=== PATIENT | female | born 2005 | race Caucasian/White ===

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

== ENCOUNTER 2024-05-18 15:11 | Outpatient (CLI) | payer BC, SELFPAY ==
[2024-05-18 20:37] LABS: HIV 1/2 Ab P24 Ag Result Negative (Negative)
[2024-05-18 20:41] LABS: Hepatitis B Surface Antigen Negative (Negative)
[2024-05-18 20:47] LABS: HAV RESULT Negative (Negative); Hepatitis B Core IgM Result Negative (Negative)
[2024-05-18 20:58] LABS: Hepatitis C Virus Antibody Negative (Negative)
[2024-05-19 10:51] LABS: Rapid Plasma Reagin Non-Reactive (NonReactive)
== END 2024-05-18 15:12 | disposition home or self-care (01) ==
PROVIDERS: PCP Nurse Practitioner Family; Visit Provider Obstetrics & Gynecology
DX: Z11.3 Encounter for screening for infections with a predominantly sexual mode of transmission (principal)
CPT/HCPCS: 36415; 80074; 86592; 86695; 86696; 86703; G0432

== ENCOUNTER 2024-07-07 12:51 | Emergency (ER) | payer BC, SELFPAY ==
--- NOTE | ~2024-07-07 | US_ITS ---
EXAMINATION: US pelvic complete w TV DATE: 07/07/2024 14:53 INDICATION: Pelvic pain. TECHNIQUE: Multiple transabdominal and transvaginal sonographic images of the pelvis were obtained. COMPARISON: None. FINDINGS: TRANSABDOMINAL ULTRASOUND: The uterus measures 5.3 x 2.7 x 5.6 cm. There is no free fluid in the pelvis. TRANSVAGINAL ULTRASOUND: The endometrial complex measures 7 mm in thickness. The right ovary measures 1.6 x 2.1 x 1.6 cm. The left ovary measures 1.6 x 1.9 x 1.5 cm. There is normal vascular flow in the ovaries. IMPRESSION: 1. Normal pelvis. Reviewed, dictated and finalized at location A. TER APPRENTICE IMPRESSION: 1. Normal pelvis.
--- NOTE | ~2024-07-07 | CT_ITS ---
EXAMINATION: CT abdomen pelvis w con DATE: 07/07/2024 15:50 INDICATION: Right lower quadrant abdominal pain. TECHNIQUE: Computed tomography (CT) of the abdomen and pelvis was performed with 100 mL Omnipaque 350 intravenous contrast. Automated exposure control and iterative reconstruction technique were employe d. The dose-length product was 326.96 mGy-cm. COMPARISON: Ultrasound pelvis 07/07/2024 FINDINGS: The visualized portions of the lung bases demonstrate mild atelectasis. No pleural effusion . The heart size is normal. No pericardial effusion. The liver is normal. The gallbladder is distende d, likely secondary to fasting. The spleen, pancreas, and adrenal glands are normal. There is moderat e atrophy of right kidney. There is hypoenhancement of right kidney inferior pole, consistent with py elonephritis. There is urothelial thickening and enhancement in the right ureter. There are no dilate d loops of bowel. The appendix is normal. There are no pathologically enlarged lymph nodes. There is no free intraperitoneal fluid. 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 There is 3 mm ante rolisthesis of L5 on S1. IMPRESSION: 1. Right-sided pyelonephritis. Reviewed, dictated and finalized at location A. MINER
[2024-07-07 12:55] VITALS: BP 127/87; PULSE 97; RESP 20; TEMP 36.4; O2SAT 100
[2024-07-07 13:04] VITALS: BP 127/87; PULSE 97; RESP 20; TEMP 36.4; O2SAT 100
--- NOTE | 2024-07-07 13:25 | ED.ABDPAIN ---
HPI - Abdominal Pain General Chief Complaint: Abdominal Pain Stated Complaint: abd pain Time Seen by Provider: 07/07/24 12:53 Source: patient Mode of arrival: EMS Limitations: no limitations History of Present Illness HPI narrative: This is a 19 year old female that presents to the ER for right lower quadrant pain. Ongoing since waking up this morning. The pain is constant. She has not taken anything for pain. Reports associated dysuria. Denies fever, vomiting, diarrhea, hematuria. Related Data Home Medications Medication Instructions Recorded Confirmed levalbuterol tartrate 45 inhalation 05/18/24 05/18/24 mcg/actuation aerosol inhaler Allergies Allergy/AdvReac Type Severity Reaction Status Date / Time No Known Allergies Allergy Verified 05/18/24 13:50 Review of Systems Review of Systems: CONSTITUTIONAL: Denies fever GASTROINTESTINAL: Reports abdominal pain, nausea. Denies vomiting, or diarrhea. GENITOURINARY: Reports dysuria. Denies hematuria. All systems reviewed & are unremarkable except as noted in HPI and below PMFSH Past Medical History Medical History (Updated 07/07/24 @ 16:10 by Radha Thibodeaux PA-C) Allergies Asthma HSV-1 (herpes simplex virus 1) infection Family History Family History Mother Depression Father Depression Hypertension Sibling Depression Asthma Grandparent Hypertension Social History Social History (Updated 05/18/24 @ 13:54 by Jamie Jesus MA) Smoking status: Never smoker Tobacco type: e-cigarettes/vaping Alcohol intake: current Substance use: current Substance use type: marijuana Do You Feel Safe in your Home?: Yes Lack of Transportation: No Lack of Food: Never True Current Housing: I Have Housing Concerned About Future Housing: No Difficulty Paying Gas/Electric Bills: No Difficulty Paying for Meds: No Currently Unemployed: No Education: High School Diploma/GED Difficulty w/ Childcare or Family Care: No Living arrangements: with family Occupation/Education: unemployed Gender identity (if verbalized by the patient): Female Sexual Orientation (if Verbalized by the Patient): Bisexual Exam Narrative: GENERAL: Well-appearing, well-nourished, and in no acute distress. HEAD: Normocephalic, atraumatic. EYES: EOMI. CHEST: Clear to auscultation. No respiratory distress. No wheezes rales or rhonchi HEART: Regular rate and rhythm. No murmur heard. Normal peripheral pulses. ABDOMEN: Soft, nondistended, normal active bowel sounds. Mild tenderness to palpation in the right lower quadrant, without guarding EXTREMITIES: Normal range of motion. No edema. SKIN: Warm, dry, no rash. NEURO: No focal deficits. Alert and oriented x3. PSYCH: Normal mood and affect Course Course Emergency Course: patient updated on her workup. Offered further inpatient management versus outpatient management with close follow-up. Patient wishes to be discharged have close follow-up with her primary provider Vital Signs Vital signs: Vital Signs Temperature 97.5 F L 07/07/24 12:55 Pulse Rate 97 07/07/24 12:55 Respiratory Rate 20 07/07/24 12:55 Blood Pressure 127/87 07/07/24 12:55 Pulse Oximetry 100 07/07/24 12:55 Oxygen Delivery Room Air 07/07/24 12:55 Temperature 97.8 F 07/07/24 15:17 Pulse Rate 88 07/07/24 15:17 Respiratory Rate 16 07/07/24 15:17 Blood Pressure 124/83 07/07/24 15:17 Pulse Oximetry 100 07/07/24 15:17 Oxygen Delivery Room Air 07/07/24 12:55 MDM - Abdominal Pain MDM Narrative Medical decision making narrative: patient presents to the emergency department for right-sided abdominal /pelvic pain. She is afebrile and nontoxic appearing. Her vitals are stable. CBC with leukocytosis to 13.9. Metabolic panel without concerning findings. Urine without evidence of infection. This was sent for culture. Pelvic ultrasound is normal. CT abdomen pelvis shows findings of pyelonephritis. Patient updated on her workup. Offered further inpatient management versus outpatient management with close follow-up. Patient wishes to be discharged have close follow-up with her primary provider. She was given warnings to return to the ER Differential Diagnosis Differential diagnosis: Likely acute appendicitis, calculus of kidney, diverticulitis and other ( ovarian cyst rupture, ovarian torsion) Lab Data Attestation: I reviewed the patient's lab results. 07/07/24 13:22 07/07/24 13:22 Labs: Lab Results 07/07/24 07/07/24 Range/Units 13:22 13:37 WBC 13.9 H (4.5-10.0) K/mm3 RBC 4.88 (4.2-5.4) M/mm3 Hgb 15.2 H (12.0-15.0) g/dL Hct 44.0 (37.0-47.0) % MCV 90.2 (80-100) fl MCH 31.1 (26-34) pg MCHC 34.5 (32-36) g/dl RDW 13.0 (11.5-14.5) % Plt Count 296 (150-375) k/mm3 MPV 10.7 H (7.4-10.4) fl Immature Gran % (Auto) 0.3 (0-0.5) % Neut % (Auto) 84.3 H (45.5-73.1) % Lymph % (Auto) 9.1 L (18.3-44.2) % [place] % (Auto) 5.6 (2.6-8.5) % Eos % (Auto) 0.3 (0-4.4) % Baso % (Auto) 0.4 (0.2-1.2) % Lymph # (Auto) 1.26 (0.9-3.2) K/mm3 Alcorn # (Auto) 0.8 H (0.1-0.6) K/mm3 Eos # (Auto) 0.0 (0-0.3) K/mm3 Baso # (Auto) 0.1 (0.0-0.1) K/mm3 Abs Immat Gran (auto) 0.04 H (0.00-0.031) K/mm3 Absolute Neuts (auto) 11.7 H (1.3-6.7) K/mm3 Absolute Nucleated RBC 0.000 (0.0-0.012) K/mm3 Nucleated RBC % 0.0 (0.0-0.2) % Sodium 137 (137-145) mmol/L Potassium 4.3 (3.4-5.0) mmol/L Chloride 107 (98-107) mmol/L Carbon Dioxide 18 L (22-30) mmol/L Anion Gap 12 (4-12) mmol/L BUN 13 (7-17) mg/dL Creatinine 0.50 L (0.7-1.0) mg/dL Estim Creat Clear Calc 135 ml/min Estimated GFR > 60 (59 - ) Glucose 90 (65-110) mg/dL Calcium 9.3 (8.4-10.2) mg/dL Total Bilirubin 0.6 (0.2-1.3) mg/dL AST 24 (14-36) U/L ALT 18 (6-35) U/L Alkaline Phosphatase 97 (38-126) U/L Total Protein 8.0 (6.3-8.2) g/dL Albumin 4.7 (3.5-5.1) g/dL Lipase 42 (23-300) U/L Urine Color Yellow (Yellow) Urine Appearance Cloudy H (Clear) Urine pH 7.0 (5.0-9.0) Ur Specific [place] 1.016 (1.001-1.035) Urine Protein Trace (Negative) mg/dL Urine Glucose (UA) Negative (Negative) mg/dL Urine Ketones Negative (Negative) mg/dL Ur Blood (Man) Trace (Negative) Urine Nitrate Positive H (Negative) Urine Bilirubin Negative (Negative) Urine Urobilinogen 0.2 (<2.0) mg/dL Leukocyte Esterase Rfl 3+ H (Negative) BAHMAN/UL Urine RBC 3-5 H (0-2) /hpf Urine WBC >100 H (0-3) /hpf Ur Squamous Epith Cells Occasional (Few) /hpf Urine Bacteria 4+ H /hpf Urine Casts 0-2 Imaging Data Radiologist's impression: ITS Impressions Pelvic/Transvag US 07/07/24 14:56 IMPRESSION: 1. Normal pelvis. Abdomen/Pelvis CT 07/07/24 15:54 IMPRESSION: 1. Right-sided pyelonephritis. Critical Care Time Critical Care Time Critical Care Time: No Discharge Plan Discharge Clinical Impression: Pyelonephritis Patient Disposition: Home, Self-Care Condition: Stable Instructions: Antibiotic Form, Kidney Infection (ED) Additional Instructions: Return to the ER if you experience fever, abdominal pain with nausea and vomiting, you are unable to keep down liquids or solids, or any other symptoms that are concerning to you Remain well hydrated. Take oral antibiotics as prescribed Follow up with primary care doctor Prescriptions: New cefdinir 300 mg capsule 300 mg PO Q12H 10 Days Qty: 20 0RF No Action levalbuterol tartrate 45 mcg/actuation HFA aerosol inhaler inhalation norethindrone-e.estradiol-iron [June FE (28)] 1.5 mg-30 mcg (21)/75 mg (7) tablet 1 tablet PO DAILY Qty: 84 1RF Follow-up/Referrals: Wolfgang,KAUSHIK Turner [Primary Care Provider] -
[2024-07-07 13:27] LABS: Basophils Absolute Auto 0.1 K/mm3 (0.0-0.1); Basophils Percent Auto 0.4 % (0.2-1.2); Eosinophils Percent Auto 0.3 % (0-4.4); Hemoglobin 15.2 g/dL (12.0-15.0); Immature Granulocyte Absolute 0.04 K/mm3 (0.00-0.031); Immature Granulocyte Percent A 0.3 % (0-0.5); Lymphocytes Absolute Auto 1.26 K/mm3 (0.9-3.2); Lymphocytes Percent Auto 9.1 % (18.3-44.2); Mean Corpuscular HGB Conc 34.5 g/dl (32-36); Mean Corpuscular Hemoglobin 31.1 pg (26-34); Mean Corpuscular Volume 90.2 fl (80-100); Mean Platelet Volume 10.7 fl (7.4-10.4); Monocytes Absolute Auto 0.8 K/mm3 (0.1-0.6); Monocytes Percent Auto 5.6 % (2.6-8.5); Neutrophils Absolute Auto 11.7 K/mm3 (1.3-6.7); Neutrophils Percent Auto 84.3 % (45.5-73.1); Platelet Count Result 296 k/mm3 (150-375); Red Blood Count 4.88 M/mm3 (4.2-5.4); White Blood Count 13.9 K/mm3 (4.5-10.0)
[2024-07-07 13:41] LABS: Alanine Aminotransferase 18 U/L (6-35); Albumin Level 4.7 g/dL (3.5-5.1); Alkaline Phosphatase 97 U/L (38-126); Anion Gap 12 mmol/L (4-12); Aspartate Amino Transferase 24 U/L (14-36); Bilirubin,Total 0.6 mg/dL (0.2-1.3); Blood Urea Nitrogen 13 mg/dL (7-17); Calcium 9.3 mg/dL (8.4-10.2); Carbon Dioxide 18 mmol/L (22-30); Chloride 107 mmol/L (98-107); Estimated CRCL calculation 135 ml/min; Estimated Glomerular Filt Rate > 60; Glucose 90 mg/dL (65-110); Lipase 42 U/L (23-300); Potassium 4.3 mmol/L (3.4-5.0); Sodium 137 mmol/L (137-145)
[2024-07-07 13:51] LABS: Add Urine Microscopic? YES; Appearance Urine Cloudy (Clear); Bacteria Urine 4+ /hpf; Bilirubin Urine Negative (Negative); Blood Urine Trace (Negative); Color Urine Yellow (Yellow); Glucose Urine UA Negative (Negative); Ketones Urine Negative (Negative); Leukocyte Esterase Ur 3+ LEU/UL (Negative); Nitrate Urine Positive (Negative); Non Pathogenic Casts 0-2; Protein Urine Trace mg/dL (Negative); Specific Grav Ur 1.016 (1.001-1.035); Squamous Epithelial Cell Urine Occasional /hpf (Few); Urobilinogen Urine 0.2 mg/dL (<2.0); WBC Urine >100 /hpf (0-3)
[2024-07-07] MEDS: MORPHINE SULFATE (*CRX) 4 MG/ML INJ IV PUSH (13:52)
[2024-07-07] MEDS: ONDANSETRON INJ 4 MG/2 ML VIAL IV PUSH (13:55)
[2024-07-07] MEDS: SODIUM CHLORIDE 0.9% IV 1,000 ML 999 ML IV CONT (13:59)
[2024-07-07 15:17] VITALS: BP 124/83; PULSE 88; RESP 16; TEMP 36.6; O2SAT 100
[2024-07-07 16:21] VITALS: BP 112/72; PULSE 86; RESP 14; TEMP 36.5; O2SAT 100
[2024-07-10 10:02] LABS: BEDSIDEPREGUCG Negative (Negative)
== END 2024-07-07 17:02 | disposition home or self-care (01) ==
PROVIDERS: Emergency Provider Physician Assistant; PCP Nurse Practitioner Family
DX: N12 Tubulo-interstitial nephritis, not specified as acute or chronic (principal); J45.909 Unspecified asthma, uncomplicated
CPT/HCPCS: 36415; 74177; 76830; 76856; 80053; 81001; 81025; 83690; 85025; 87077; 87086; 87186; 96361; 96365; 96375; 99284; J0696; J2270; J2405; J7030; Q9967

== ENCOUNTER 2024-07-31 03:29 | Emergency (ER) | payer BC, SELFPAY ==
--- NOTE | ~2024-07-31 | CT_ITS ---
CT of the Abdomen and Pelvis: Indication: Abdominal pain Technique: 2.5 mm axial scans were obtained through the abdomen and pelvis following intravenous adm inistration of 100 cc of Omnipaque 350. Dose reduction technique was used on this scan by utilizing a utomated exposure control and iterative reconstruction technique. The dose-length product (DLP) was 4 03.43 mGy-cm. COMPARISON: 07/07/2024 Findings: Scans through the lung bases are unremarkable. The liver, spleen, pancreas, gallbladder, adrenals and left kidney are within normal limits. Relative atrophy of the right kidney with areas of cortical scarring are present, as seen on prior exam. Prev iously identified right pyelonephritis is nearly completely resolved. No evidence of aortic aneurysm. No lymphadenopathy. No bowel obstruction or bowel wall thickening. There is no evidence to suggest acute appendicitis. Images through the pelvis were performed. Urinary bladder unremarkable. No adnexal mass evident. No a scites. Bilateral L5 pars interarticularis defects are present, without subluxation. Impression: Near complete interval resolution of right pyelonephritis since prior exam. Stable relative atrophy o f the right kidney with areas of cortical scarring. Reviewed, dictated and finalized at location M. LOADER OPERATOR Impression: Near complete interval resolution of right pyelonephritis since prior exam. Sta ble relative atrophy of the right kidney with areas of cortical scarring.
[2024-07-31 03:31] VITALS: BP 129/97; PULSE 99; RESP 14; TEMP 36.4; O2SAT 100
[2024-07-31 03:51] LABS: BEDSIDEPREGUCG Negative (Negative)
[2024-07-31 03:54] LABS: Add Urine Microscopic? YES; Appearance Urine Cloudy (Clear); Bacteria Urine Rare /hpf; Bilirubin Urine Negative (Negative); Blood Urine Negative (Negative); Color Urine Yellow (Yellow); Glucose Urine UA Negative (Negative); Ketones Urine Trace mg/dL (Negative); Leukocyte Esterase Ur 1+ LEU/UL (Negative); Nitrate Urine Negative (Negative); Non Pathogenic Casts 0-2; Protein Urine Trace mg/dL (Negative); RBC Urine 0-2 /hpf (0-2); Specific Grav Ur 1.031 (1.001-1.035); Squamous Epithelial Cell Urine Moderate /hpf (Few); WBC Urine 21-50 /hpf (0-3)
[2024-07-31 05:34] LABS: Basophils Percent Auto 0.2 % (0.2-1.2); Eosinophils Absolute Auto 0.4 K/mm3 (0-0.3); Eosinophils Percent Auto 4.3 % (0-4.4); Hematocrit 42.3 % (37.0-47.0); Hemoglobin 14.3 g/dL (12.0-15.0); Immature Granulocyte Absolute 0.04 K/mm3 (0.00-0.031); Immature Granulocyte Percent A 0.4 % (0-0.5); Lymphocytes Absolute Auto 1.91 K/mm3 (0.9-3.2); Lymphocytes Percent Auto 20.2 % (18.3-44.2); Mean Corpuscular HGB Conc 33.8 g/dl (32-36); Mean Corpuscular Hemoglobin 30.4 pg (26-34); Mean Platelet Volume 10.6 fl (7.4-10.4); Monocytes Absolute Auto 0.6 K/mm3 (0.1-0.6); Monocytes Percent Auto 6.3 % (2.6-8.5); Neutrophils Absolute Auto 6.5 K/mm3 (1.3-6.7); Neutrophils Percent Auto 68.6 % (45.5-73.1); Platelet Count Result 341 k/mm3 (150-375); Red Cell Distribution Width 12.3 % (11.5-14.5); White Blood Count 9.4 K/mm3 (4.5-10.0)
[2024-07-31] MEDS: KETOROLAC 15 MG/ML VIAL (*BKC) IV PUSH (05:40)
[2024-07-31 05:47] LABS: Alanine Aminotransferase 14 U/L (6-35); Albumin Level 4.5 g/dL (3.5-5.1); Alkaline Phosphatase 90 U/L (38-126); Anion Gap 6 mmol/L (4-12); Aspartate Amino Transferase 21 U/L (14-36); Bilirubin,Total 0.3 mg/dL (0.2-1.3); Blood Urea Nitrogen 18 mg/dL (7-17); Calcium 9.2 mg/dL (8.4-10.2); Carbon Dioxide 26 mmol/L (22-30); Chloride 106 mmol/L (98-107); Estimated CRCL calculation 110 ml/min; Estimated Glomerular Filt Rate > 60; Glucose 95 mg/dL (65-110); Lipase 84 U/L (23-300); Potassium 4.2 mmol/L (3.4-5.0); Sodium 138 mmol/L (137-145)
--- NOTE | 2024-07-31 05:52 | PC.NURSE ---
Patient taken to CT at this time.
--- NOTE | 2024-07-31 06:20 | ED_ITS ---
HPI - General Adult General Chief complaint: Urogenital-Female Stated complaint: R sided flank pain Time Seen by Provider: 07/31/24 03:56 History of Present Illness HPI narrative: This is a 19-year-old female history of UTI pyelonephritis presenting with right lower quadrant pain. Patient says she has a burning pain in the right lower quadrant that extends the suprapubic area around her right flank. She says this is similar to when she has had pyelonephritis in the past. She does notice pain on urination and increased urinary urgency. No fevers chills nausea vomiting or diarrhea. Patient still has appendix. Related Data Home Medications Medication Instructions Recorded Confirmed levalbuterol tartrate 45 inhalation 05/18/24 05/18/24 mcg/actuation aerosol inhaler Allergies Allergy/AdvReac Type Severity Reaction Status Date / Time No Known Allergies Allergy Verified 07/31/24 03:29 [facility] Past Medical History Medical History Allergies Asthma HSV-1 (herpes simplex virus 1) infection Family History Family History Mother Depression Father Depression Hypertension Sibling Depression Asthma Grandparent Hypertension Social History Social History (Updated 05/18/24 @ 13:54 by Jamie Jesus MA) Smoking status: Never smoker Tobacco type: e-cigarettes/vaping Alcohol intake: current Substance use: current Substance use type: marijuana Do You Feel Safe in your Home?: Yes Lack of Transportation: No Lack of Food: Never True Current Housing: I Have Housing Concerned About Future Housing: No Difficulty Paying Gas/Electric Bills: No Difficulty Paying for Meds: No Currently Unemployed: No Education: High School Diploma/GED Difficulty w/ Childcare or Family Care: No Living arrangements: with family Occupation/Education: unemployed Gender identity (if verbalized by the patient): Female Sexual Orientation (if Verbalized by the Patient): Bisexual Exam Narrative: APPEARANCE: No apparent distress. Head: atraumatic. EYES: EOMI, NOSE: Atraumatic NECK: Trachea midline RESPIRATORY: No increased rate of breathing clear to auscultation CARDIOVASCULAR: RRR, ABDOMINAL: Tenderness to the palpation in the right lower abdomen without rebound or guarding. No CVA tenderness MUSCULOSKELETAl: No obvious deformities NEURO: Alert. Moving 4/4 extremities SKIN:: Warm, dry. Normal color PSYCHIATRIC: Normal affect Course Vital Signs Vital signs: Vital Signs Temperature 97.6 F 07/31/24 03:31 Pulse Rate 99 07/31/24 03:31 Respiratory Rate 14 07/31/24 03:31 Blood Pressure 129/97 H 07/31/24 03:31 Pulse Oximetry 100 07/31/24 03:31 Oxygen Delivery Room Air 07/31/24 03:31 Temperature 97.9 F 07/31/24 06:22 Pulse Rate 78 07/31/24 06:22 Respiratory Rate 17 07/31/24 06:22 Blood Pressure 130/92 H 07/31/24 06:22 Pulse Oximetry 100 07/31/24 06:22 Oxygen Delivery Room Air 07/31/24 03:31 Medical Decision Making MDM Narrative Medical decision making narrative: -Course: 19-year-old female presenting with right lower quadrant abdominal pain urinary symptoms. urine indicative of infection. CT showed no evidence of appendicitis and some scarring of the right kidney. Patient given a dose of ceftriaxone in the ED will be discharged on cefdinir. Given return precautions. -DDX includes but is not limited to: Appendicitis, urinary tract infection, , colitis, pyelonephritis, kidney stone -Independent interpretation of studies: labs and imaging reviewed urinalysis indicative of infection -Interventions: Toradol, ceftriaxone -Shared decision making / Disposition: Discharged -RX cefdinir, Motrin, Tylenol Vital Signs Vital Signs: Vital Signs Temperature 97.6 F 07/31/24 03:31 Pulse Rate 99 07/31/24 03:31 Respiratory Rate 14 07/31/24 03:31 Blood Pressure 129/97 H 07/31/24 03:31 Pulse Oximetry 100 07/31/24 03:31 Oxygen Delivery Room Air 07/31/24 03:31 Temperature 97.9 F 07/31/24 06:22 Pulse Rate 78 07/31/24 06:22 Respiratory Rate 17 07/31/24 06:22 Blood Pressure 130/92 H 07/31/24 06:22 Pulse Oximetry 100 07/31/24 06:22 Oxygen Delivery Room Air 07/31/24 03:31 Lab Data 07/31/24 05:24 07/31/24 05:24 Labs: Lab Results 07/31/24 07/31/24 07/31/24 Range/Units 03:43 03:48 05:24 WBC 9.4 (4.5-10.0) K/mm3 RBC 4.70 (4.2-5.4) M/mm3 Hgb 14.3 (12.0-15.0) g/dL Hct 42.3 (37.0-47.0) % MCV 90.0 (80-100) fl MCH 30.4 (26-34) pg MCHC 33.8 (32-36) g/dl RDW 12.3 (11.5-14.5) % Plt Count 341 (150-375) k/mm3 MPV 10.6 H (7.4-10.4) fl Immature Gran % (Auto) 0.4 (0-0.5) % Neut % (Auto) 68.6 (45.5-73.1) % Lymph % (Auto) 20.2 (18.3-44.2) % [place] % (Auto) 6.3 (2.6-8.5) % Eos % (Auto) 4.3 (0-4.4) % Baso % (Auto) 0.2 (0.2-1.2) % Lymph # (Auto) 1.91 (0.9-3.2) K/mm3 [place] # (Auto) 0.6 (0.1-0.6) K/mm3 Eos # (Auto) 0.4 H (0-0.3) K/mm3 Baso # (Auto) 0.0 (0.0-0.1) K/mm3 Abs Immat Gran (auto) 0.04 H (0.00-0.031) K/mm3 Absolute Neuts (auto) 6.5 (1.3-6.7) K/mm3 Absolute Nucleated RBC 0.000 (0.0-0.012) K/mm3 Nucleated RBC % 0.0 (0.0-0.2) % Sodium 138 (137-145) mmol/L Potassium 4.2 (3.4-5.0) mmol/L Chloride 106 (98-107) mmol/L Carbon Dioxide 26 (22-30) mmol/L Anion Gap 6 (4-12) mmol/L BUN 18 H (7-17) mg/dL Creatinine 0.70 (0.7-1.0) mg/dL Estim Creat Clear Calc 110 ml/min Estimated GFR > 60 (59 - ) Glucose 95 (65-110) mg/dL Calcium 9.2 (8.4-10.2) mg/dL Total Bilirubin 0.3 (0.2-1.3) mg/dL AST 21 (14-36) U/L ALT 14 (6-35) U/L Alkaline Phosphatase 90 (38-126) U/L Total Protein 8.0 (6.3-8.2) g/dL Albumin 4.5 (3.5-5.1) g/dL Lipase 84 (23-300) U/L Urine Color Yellow (Yellow) Urine Appearance Cloudy H (Clear) Urine pH 6.0 (5.0-9.0) Ur Specific [place] 1.031 (1.001-1.035) Urine Protein Trace (Negative) mg/dL Urine Glucose (UA) Negative (Negative) mg/dL Urine Ketones Trace H (Negative) mg/dL Ur Blood (Man) Negative (Negative) Urine Nitrate Negative (Negative) Urine Bilirubin Negative (Negative) Urine Urobilinogen 1.0 (<2.0) mg/dL Leukocyte Esterase Rfl 1+ H (Negative) BAHMAN/UL Urine RBC 0-2 (0-2) /hpf Urine WBC 21-50 H (0-3) /hpf Ur Squamous Epith Cells Moderate (Few) /hpf Urine Bacteria Rare /hpf Urine Casts 0-2 POC Urine HCG, Qual Negative (Negative) Discharge Plan Discharge Clinical Impression: Pyelonephritis Patient Disposition: Home, Self-Care Condition: Stable Instructions: Antibiotic Form, Kidney Infection (ED) Additional Instructions: please complete the antibiotics as instructed. Please use Motrin and Tylenol for pain control. Return to ED if you develop fevers severe pain or if your condition is getting worse. Prescriptions: New ibuprofen 800 mg tablet 800 mg PO TID PRN (Reason: pain) 7 Days Qty: 21 0RF acetaminophen 500 mg tablet 1,000 mg PO TID PRN (Reason: sunny) 7 Days Qty: 42 0RF cefdinir 300 mg capsule 300 mg PO Q12H Qty: 20 0RF No Action levalbuterol tartrate 45 mcg/actuation HFA aerosol inhaler inhalation norethindrone-e.estradiol-iron [Junel FE .530 (28)] 1.5 mg-30 mcg (21)/75 mg (7) tablet 1 tablet PO DAILY Qty: 84 1RF cefdinir 300 mg capsule 300 mg PO Q12H 10 Days Qty: 20 0RF Follow-up/Referrals: Wolfgang,KAUSHIK Turner [Primary Care Provider] -
[2024-07-31 06:22] VITALS: BP 130/92; PULSE 78; RESP 17; TEMP 36.6; O2SAT 100
[2024-07-31 06:56] VITALS: BP 126/100; PULSE 78; RESP 16; TEMP 36.4; O2SAT 97
== END 2024-07-31 06:58 | disposition home or self-care (01) ==
PROVIDERS: Emergency Provider Emergency Medicine; PCP Nurse Practitioner Family
DX: N12 Tubulo-interstitial nephritis, not specified as acute or chronic (principal); J45.909 Unspecified asthma, uncomplicated; Z79.3 Long term (current) use of hormonal contraceptives
CPT/HCPCS: 36415; 74177; 80053; 81001; 81025; 83690; 85025; 87086; 96365; 96375; 99284; J0696; J1885; Q9967

== ENCOUNTER 2024-08-01 14:51 | Emergency (ER) | payer BC, SELFPAY ==
--- NOTE | ~2024-08-01 | US_ITS ---
EXAMINATION: US pelvic complete w TV DATE: 08/01/2024 16:09 INDICATION: lower abd pain, right side, r/o torsion TECHNIQUE: Multiple transabdominal and endovaginal sonographic images of the pelvis were obtained. COMPARISON: 07/07/2024; CT abdomen pelvis 07/31/2024. FINDINGS: Uterus: 5.3 x 2.9 x 3.4 cm. Anteverted and anteflexed. Endometrial complex measures 2 mm. Right Ovary: 2.9 x 1.7 x 3.3 cm. Vascular flow is present. No adnexal mass Left Ovary: 2.8 x 1.4 x 1.9 cm. Vascular flow is present. 1.8 cm simple cyst or dominant follicle. There is no free fluid in the pelvis. IMPRESSION: Normal pelvic sonogram findings. Reviewed, dictated and finalized at location K. LATORY COMPLIANCE DIRECTOR
[2024-08-01 14:53] VITALS: BP 123/87; PULSE 88; RESP 20; TEMP 36.4; O2SAT 100
--- NOTE | 2024-08-01 15:15 | ED_ITS ---
HPI - Abdominal Pain General Chief Complaint: Abdominal Pain Stated Complaint: RLQ pain Time Seen by Provider: 08/01/24 15:04 History of Present Illness HPI narrative: 19-year-old female with a past medical history significant for recently diagnosed UTI of pyelonephritis on the right side. She was seen and evaluated less than 48 hours ago at the same facility. Patient states that she has been taking her antibiotics as prescribed with still having intermittent pain that is worsening her right lower quadrant. She denies any fever, chills but does note some pain with urination and increased urinary frequency. Endorses some nausea started developing today without vomiting. Patient still has her appendix and denies any abdominal surgeries. She denies being on her. But states she is getting. Leg cramps especially in the right lower quadrant. Denies any history of cysts or chance of . Had negative test yesterday. Related Data Home Medications ?Medication ?Instructions ?Recorded ?Confirmed ?Last Taken ?Type levalbuterol tartrate 45 inhalation 05/18/24 05/18/24 Unknown History mcg/actuation aerosol inhaler Allergies Allergy/AdvReac Type Severity Reaction Status Date / Time No Known Allergies Allergy Verified 08/01/24 14:56 Review of Systems 2 Review of Systems: As [facility] Past Medical History Medical History HSV-1 (herpes simplex virus 1) infection Asthma Allergies Family History Family History Mother Depression Father Depression Hypertension Sibling Depression Asthma Grandparent Hypertension Social History Social History Smoking status: Never smoker Tobacco type: e-cigarettes/vaping Alcohol intake: current Substance use: current Substance use type: marijuana Do You Feel Safe in your Home?: Yes Lack of Transportation: No Lack of Food: Never True Current Housing: I Have Housing Concerned About Future Housing: No Difficulty Paying Gas/Electric Bills: No Difficulty Paying for Meds: No Currently Unemployed: No Education: High School Diploma/GED Difficulty w/ Childcare or Family Care: No Living arrangements: with family Occupation/Education: unemployed Gender identity (if verbalized by the patient): Female Sexual Orientation (if Verbalized by the Patient): Bisexual Exam 2 Narrative: GENERAL: [Well-appearing, well-nourished, and in no acute distress.] HEAD: [Normocephalic, atraumatic.] EYES: [PERRLA and EOMI.] ENT: Nares clear, no rhinorrhea or epistaxis. Mucous membranes moist. NECK: Supple. CHEST: [Clear to auscultation. No respiratory distress.] HEART: [Regular rate and rhythm]. No murmur heard. [Normal peripheral pulses.] ABDOMEN: [Soft, nondistended], some mild tenderness to palpation the right lower quadrant, negative Armando sign, no peritonitis, [No rigidity or guarding] EXTREMITIES: Normal range of motion. [No edema.] SKIN: Warm, dry, no rash. NEURO: [No focal deficits]. Alert and oriented [x3.] PSYCH: [Normal mood and affect.] Course Vital Signs Vital signs: Vital Signs Temperature 36.4 C 08/01/24 14:53 Pulse Rate 88 08/01/24 14:53 Respiratory Rate 20 08/01/24 14:53 Blood Pressure 123/87 08/01/24 14:53 Pulse Oximetry 100 08/01/24 14:53 Oxygen Delivery Room Air 08/01/24 14:53 Temperature 36.4 C 08/01/24 14:53 Pulse Rate 88 08/01/24 14:53 Respiratory Rate 20 08/01/24 14:53 Blood Pressure 123/87 08/01/24 14:53 Pulse Oximetry 100 08/01/24 14:53 Oxygen Delivery Room Air 08/01/24 14:53 MDM - Abdominal Pain MDM Narrative Medical decision making narrative: 19-year-old female that was recently evaluated for right lower quadrant pain and diagnosed with pyelonephritis recently. Is currently on antibiotic therapy but states that she is having intermittent worsening pain in her right lower quadrant. Endorses some new nauseousness. She has mild tenderness in this area but no fever, chills, vital signs are all reassuring without any tachycardia, hypertension, tachypnea, fever or hypoxia. Patient had a CT scan yesterday that shows improvement in her right-sided pyelonephritis since prior examination and some cortical scarring of the kidney. No bowel obstruction, no evidence of appendicitis. She had no leukocytosis during her labs yesterday. At this time will broaden our investigation and order repeat laboratory evaluations, repeat urinalysis and order a pelvic ultrasound to rule out any kind of ovarian pathology such as cysts or even torsion. Patient does appear relatively comfortable but rates her pain 5/10 and nauseousness. She was given Toradol and Zofran for symptom control as well as a fluid bolus and repeat evaluation frequently. On reassessment patient had improvement in her pain control. Laboratory studies are very reassuring without any leukocytosis, anemia or significant interval change from yesterday. Laboratory studies showed no renal dysfunction, normal electrolyte profile, normal glucose and hepatic function panel. test negative. Ultrasonography was independently reviewed and also interpreted by radiology. Overall normal pelvic findings without any concerns for torsion or significant masses. No adnexal mass, vascular flow present in bilateral ovaries, no enlargement of either ovary. Simple cyst in the left ovary but not correlating with patient's symptoms on the right side. No free fluid in the pelvis. Given patient's reassuring workup and improvement in pain I believe she can be safely discharged home with continued regimen at this time with antibiotics for her recent kidney infection that she is still taking. She asked for something stronger for pain control which I believe would be beneficial given that she has had some worsening pain despite adequate treatment at this time. Give her short course of tramadol and encouraged to follow up on outpatient basis with her primary care provider. She was also given return precautions including any worsening signs or symptoms and she can safely be discharged home at this time. Medical Records Attestation: I reviewed the patient's medical records. Lab Data Attestation: I reviewed the patient's lab results. 08/01/24 15:18 08/01/24 15:18 Labs: Lab Results 08/01/24 08/01/24 08/01/24 Range/Units 15:18 16:45 16:53 WBC 8.9 (4.5-10.0) K/mm3 RBC 4.97 (4.2-5.4) M/mm3 Hgb 15.3 H (12.0-15.0) g/dL Hct 43.7 (37.0-47.0) % MCV 87.9 (80-100) fl MCH 30.8 (26-34) pg MCHC 35.0 (32-36) g/dl RDW 12.5 (11.5-14.5) % Plt Count 415 H (150-375) k/mm3 MPV 10.7 H (7.4-10.4) fl Immature Gran % (Auto) 0.2 (0-0.5) % Neut % (Auto) 69.6 (45.5-73.1) % Lymph % (Auto) 19.7 (18.3-44.2) % [place] % (Auto) 5.7 (2.6-8.5) % Eos % (Auto) 4.4 (0-4.4) % Baso % (Auto) 0.4 (0.2-1.2) % Lymph # (Auto) 1.76 (0.9-3.2) K/mm3 [place] # (Auto) 0.5 (0.1-0.6) K/mm3 Eos # (Auto) 0.4 H (0-0.3) K/mm3 Baso # (Auto) 0.0 (0.0-0.1) K/mm3 Abs Immat Gran (auto) 0.02 (0.00-0.031) K/mm3 Absolute Neuts (auto) 6.2 (1.3-6.7) K/mm3 Absolute Nucleated RBC 0.000 (0.0-0.012) K/mm3 Nucleated RBC % 0.0 (0.0-0.2) % Sodium 138 (137-145) mmol/L Potassium 4.2 (3.4-5.0) mmol/L Chloride 108 H (98-107) mmol/L Carbon Dioxide 20 L (22-30) mmol/L Anion Gap 10 (4-12) mmol/L BUN 13 D (7-17) mg/dL Creatinine 0.60 L (0.7-1.0) mg/dL Estim Creat Clear Calc 125 ml/min Estimated GFR > 60 (59 - ) Glucose 88 (65-110) mg/dL Calcium 9.6 (8.4-10.2) mg/dL Total Bilirubin 0.6 (0.2-1.3) mg/dL AST 26 (14-36) U/L ALT 17 (6-35) U/L Alkaline Phosphatase 106 (38-126) U/L Total Protein 9.0 H (6.3-8.2) g/dL Albumin 4.6 (3.5-5.1) g/dL Lipase 40 (23-300) U/L Urine Color Pending Urine Appearance Pending Urine pH Pending Ur Specific [place] Pending Urine Protein Pending Urine Glucose (UA) Pending Urine Ketones Pending Ur Blood (Man) Pending Urine Nitrate Pending Urine Bilirubin Pending Urine Urobilinogen Pending Leukocyte Esterase Rfl Pending POC Urine HCG, Qual Negative (Negative) Imaging Data Attestation: I personally reviewed and interpreted this imaging study as follows: Radiologist's impression: ITS Impressions Pelvic/Transvag US 08/01/24 16:11 IMPRESSION: Normal pelvic sonogram findings. Discharge Plan Discharge Clinical Impression: Pyelonephritis Instructions: Antibiotic Form, Kidney Infection (ED), Abdominal Pain (ED) Additional Instructions: We will send you home with something stronger for pain but please continue taking your antibiotic regimen as prescribed by the previous provider. Follow- up outpatient with your PCP. Return with any new or worsening concerns at any time. Patient Language: Bengali Prescriptions: New tramadol 50 mg tablet 50 mg PO Q6H PRN (Reason: pain) Qty: 14 0RF No Action levalbuterol tartrate 45 mcg/actuation HFA aerosol inhaler inhalation norethindrone-e.estradiol-iron [Junel FE 1.5/30 (28)] 1.5 mg-30 mcg (21)/75 mg (7) tablet 1 tablet PO DAILY Qty: 84 1RF cefdinir 300 mg capsule 300 mg PO Q12H 10 Days Qty: 20 0RF ibuprofen 800 mg tablet 800 mg PO TID PRN (Reason: pain) 7 Days Qty: 21 0RF acetaminophen 500 mg tablet 1,000 mg PO TID PRN (Reason: sunny) 7 Days Qty: 42 0RF cefdinir 300 mg capsule 300 mg PO Q12H Qty: 20 0RF Follow-up/Referrals: Wolfgang,KAUSHIK Turner [Primary Care Provider] - Time of Disposition: 17:15
[2024-08-01] MEDS: ONDANSETRON INJ 4 MG/2 ML VIAL IV PUSH (15:21)
[2024-08-01] MEDS: SODIUM CHLORIDE 0.9% IV 1,000 ML 999 ML IV CONT (15:21)
[2024-08-01] MEDS: KETOROLAC 30 MG/ML VIAL (*BKC) IV PUSH (15:23)
[2024-08-01 15:35] LABS: Basophils Percent Auto 0.4 % (0.2-1.2); Eosinophils Absolute Auto 0.4 K/mm3 (0-0.3); Eosinophils Percent Auto 4.4 % (0-4.4); Hematocrit 43.7 % (37.0-47.0); Hemoglobin 15.3 g/dL (12.0-15.0); Immature Granulocyte Absolute 0.02 K/mm3 (0.00-0.031); Immature Granulocyte Percent A 0.2 % (0-0.5); Lymphocytes Absolute Auto 1.76 K/mm3 (0.9-3.2); Lymphocytes Percent Auto 19.7 % (18.3-44.2); Mean Corpuscular Hemoglobin 30.8 pg (26-34); Mean Corpuscular Volume 87.9 fl (80-100); Mean Platelet Volume 10.7 fl (7.4-10.4); Monocytes Absolute Auto 0.5 K/mm3 (0.1-0.6); Monocytes Percent Auto 5.7 % (2.6-8.5); Neutrophils Absolute Auto 6.2 K/mm3 (1.3-6.7); Neutrophils Percent Auto 69.6 % (45.5-73.1); Platelet Count Result 415 k/mm3 (150-375); Red Blood Count 4.97 M/mm3 (4.2-5.4); Red Cell Distribution Width 12.5 % (11.5-14.5); White Blood Count 8.9 K/mm3 (4.5-10.0)
[2024-08-01 15:41] LABS: Alanine Aminotransferase 17 U/L (6-35); Albumin Level 4.6 g/dL (3.5-5.1); Alkaline Phosphatase 106 U/L (38-126); Anion Gap 10 mmol/L (4-12); Aspartate Amino Transferase 26 U/L (14-36); Bilirubin,Total 0.6 mg/dL (0.2-1.3); Blood Urea Nitrogen 13 mg/dL (7-17); Calcium 9.6 mg/dL (8.4-10.2); Carbon Dioxide 20 mmol/L (22-30); Chloride 108 mmol/L (98-107); Estimated CRCL calculation 125 ml/min; Estimated Glomerular Filt Rate > 60; Glucose 88 mg/dL (65-110); Lipase 40 U/L (23-300); Potassium 4.2 mmol/L (3.4-5.0); Sodium 138 mmol/L (137-145)
[2024-08-01 17:10] LABS: BEDSIDEPREGUCG Negative (Negative)
[2024-08-01 17:17] LABS: Add Urine Microscopic? YES; Appearance Urine Cloudy (Clear); Bacteria Urine None Seen /hpf; Bilirubin Urine Negative (Negative); Blood Urine Negative (Negative); Color Urine Yellow (Yellow); Glucose Urine UA Negative (Negative); Ketones Urine Negative (Negative); Leukocyte Esterase Ur 1+ LEU/UL (Negative); Nitrate Urine Negative (Negative); Protein Urine 1+ mg/dL (Negative); RBC Urine 0-2 /hpf (0-2); Specific Grav Ur 1.028 (1.001-1.035); Squamous Epithelial Cell Urine Few /hpf (Few); Urobilinogen Urine 0.2 mg/dL (<2.0); WBC Urine 21-50 /hpf (0-3); pH Urine 6.5 (5.0-9.0)
== END 2024-08-01 17:29 | disposition home or self-care (01) ==
LOC: ANHED 15:33
PROVIDERS: Physician Assistant; Emergency Provider Student in an Organized Health Care Education/Training Program; PCP Nurse Practitioner Family
DX: N12 Tubulo-interstitial nephritis, not specified as acute or chronic (principal); J45.909 Unspecified asthma, uncomplicated
CPT/HCPCS: 36415; 76830; 76856; 80053; 81001; 81025; 83690; 85025; 87086; 96361; 96374; 96375; 99284; J1885; J2405; J7030

== ENCOUNTER 2024-09-30 19:15 | Emergency (ER) | payer BC, SELFPAY ==
[2024-09-30] VITALS (22 sets, daily range): BP systolic 117–126; BP diastolic 90–96; PULSE 91–130; RESP 11–24; TEMP 36.8; O2SAT 95–100
--- NOTE | ~2024-09-30 | CT_ITS ---
EXAMINATION: CTA chest PE protocol DATE: 09/30/2024 21:45 INDICATION: sob, recent influenza, asthma, +dimer TECHNIQUE: Computed tomography angiography (CTA) of the chest was performed with 100 mL Omnipaque-350 intravenous contrast timed to evaluate the pulmonary arteries. Coronal maximum intensity projection 3D-reconstructions were created by the technologist. The dose-length product (DLP) was 280.66 mGy-cm. Automated exposure control and iterative reconstruction technique were employed. COMPARISON: X-ray chest, same date. FINDINGS: Lung parenchyma and airways: Scar/atelectasis in the left upper and lower lobes. Lungs otherwise delia r. Patent airways. Pleura: Unremarkable. Thoracic inlet, axillae and chest wall: Unremarkable. Thoracic aorta: No significant dilation. No dissection. Mediastinum: Normal. Heart and pericardium: Normal. Coronary artery calcifications: Absent. Upper abdomen: No significant finding. Bones: No acute osseous finding. Pulmonary arteries: Study quality: Minimal motion artifact, late contrast bolus, overall diagnostic. No pulmonary emboli detected. IMPRESSION: No CT evidence of acute pulmonary embolus. No acute process detected in the chest. Gallbladder hydrops, presumably secondary to fasting unless accompanied by right upper quadrant pain and/or biliary laboratory abnormalities. Reviewed, dictated and finalized at location K. ANDROID DEVELOPER IMPRESSION: No CT evidence of acute pulmonary embolus. No acute process detected in the chest. Gallbladder hydrops, presumably secondary to fasting unless accompanied by righ t upper quadrant pain and/or biliary laboratory abnormalities.
--- NOTE | ~2024-09-30 | XR_ITS ---
EXAMINATION: XR chest 1V portable Exam Date/Time: 09/30/2024 20:24 STEEL FIXER HISTORY: sob, asthma Comparison: None. RESULT: Lines, tubes, and devices: None. Lungs and pleura: Mild diffuse reticular opacities. No focal consolidation, pleural effusion, or pne umothorax. Cardiomediastinal silhouette: Stable. Other: No acute osseous or upper abdominal finding. IMPRESSION: Pulmonary opacities may represent mild interstitial edema, bronchiolitis or small airways disease. Reviewed, dictated and finalized at location K. L FIXER IMPRESSION: Pulmonary opacities may represent mild interstitial edema, bronchiolitis or sma ll airways disease.
--- OUTSIDE RECORDS SUMMARY | 2024-09-30 19:54 | XMS_ITS | Continuity of Care Document ---
Author Organization [facility] Address [address] [place] [address] Care Team Providers Care Welder Production Line Arc Name Role Phone Vandana RENO, Dean Unavailable [...] Diagnoses Date Provider Providers Copied on Encounter [facility], [address], [place], [place], [id number] , [facility] No Information 3 Angelinachiarashavon Luiszer. [address] [facility] [address], [place], [address], . tel:[phone] OFFICE/OUTPA TIENT VISIT, [facility], [address], [place], [place], [phone] , [facility] ER follow up (chief complaint) Viral gastroenteritisCy stic kidney disease, unspecifiedPerson al history, Urinary (tract) infection 2 No Information OFFICE/OUTPA TIENT VISIT, [facility], [address] [place] [address], [id number] , [facility] Vaginal discomfort (chief complaint)p ain w/ urination (chief complaint) Cyst of right kidneyUrinary Tract InfectionVulvar candidiasis 2 No Information OFFICE/OUTPA TIENT VISIT, [facility], [address] [place] [address], [phone] , [facility] UC UTI problems (chief complaint) Dysuria 2 Sunita Cochran. [address] [place] [address], [place], [address], [place]. tel:[phone] OFFICE/OUTPA TIENT VISIT, [facility], [address], [place], [place], [phone] , [facility] follow up from previous visit (chief complaint)p erineal discomfort (chief complaint) DysuriaConstipati on, unspecifiedDehydr ation 2 No Information OFFICE/OUTPA TIENT VISIT, [facility], [address], [place], [place], [phone] , [facility] Urine Discomfort (chief complaint) DehydrationAllerg ic rhinitis, cause unspecifiedConsti pationDysuriaDysu leonardo 2 No Information OFFICE/OUTPA TIENT VISIT, [facility], [address], [place], [place], [id number] , [facility] UC UTI (chief complaint) UTI (urinary tract infection) 2 No Information OFFICE/OUTPA TIENT VISIT, [facility], [address], [place], [place], [phone] , [facility] lump on right breast (chief complaint)i njury to index finger (chief complaint) Cellulitis 2 No Information OFFICE/OUTPA TIENT VISIT, [facility], [address], [place], [place], [phone] , [facility] vaginal itching x2dys (chief complaint)u rinary frequency x 2dys (chief complaint) Urinary frequency 8 2 Odunusi Dean. [address] [facility] [address], [place], [address], . tel:[phone] OFFICE/OUTPA TIENT VISIT, [facility], [address], [place], [place], [phone] , [facility] UC right lower abdominal pain (chief complaint) NauseaAbdominal pain, acute, right lower quadrantSinusitis 1 No Information OFFICE/OUTPA TIENT VISIT, [facility], [address], [place], [place], [phone] , [facility] poss. UTI (chief complaint) Urinary system symptoms, other 1 No Information OFFICE/OUTPA TIENT VISIT, [facility], [address], [place], [place], [phone] , [facility] abdominal pain since this morning (chief complaint) UTI (urinary tract infection) 1 Odunusi Dean. [address] [facility] [address], [place], [address], [place]. tel:[phone] OFFICE/OUTPA TIENT VISIT, [facility], [address], [place], [place], [phone] , [facility] lt earache x 3dys on and off (chief complaint)l ow grade fever this am (chief complaint) Otitis media 2 1 Odunusi Dean. [address] [facility] [address], [place], [address], [place]. tel:[phone] OFFICE/OUTPA TIENT VISIT, [facility], [address], [place], [place], [phone] , [facility] ([facility] complaint)f ever (chief complaint) Pneumonia Sep-1 [phone] Vandana Moran. [address], [place], [address], . tel:[phone] Family History Family Member Type Diagnosis Age [...] republican ID Authormisha rizvi(s) [employer] [facility] [id number] Social History Type Description Quantity Date Captured [...]
--- OUTSIDE RECORDS SUMMARY | 2024-09-30 19:54 | XMS_ITS | Referral Summary ---
Author Organization [facility] Address [address] [place] [address] Phone Care Team Providers Care Medical Instructor Name Role Phone Yue Goss COMPOUND WORKER Primary Care Provider [phone] Encounters Date Type Department Care Team Description 09/15/2024 11:30 AM ETHANOL OPERATIONS MANAGER Office Visit [facility] Internal Medicine at [place] [address] [place] [address] Yue Goss NP Physical exam, annual (Primary Dx); BMI 28.0-28.9,adult; Moderate persistent asthma without complication; Chronic midline thoracic back pain 08/09/2024 Telephone [facility] [address] [place] [address] Yue Goss NP 08/08/2024 Telephone [facility] Medicine [address] [place] [address] [address] [place] [address] Yeu Goss NP 08/01/2024 Orders Only [facility] [address] [place] [address] Yue Goss NP 07/31/2024 Orders Only [facility] [address] [place] [address] Yue Goss NP 07/17/2024 Orders Only [facility] Information [facility] [address] [place] [address] Scanning, Provider 07/14/2024 Telephone [facility] Medicine [address] [place] [phone] Yue Goss, COMPOUND WORKER from Last 3 Months Allergies Active Allergy Reactions Criticality Noted Date Comments Doxycycline Cough Low 05/25/2022 Asthma exacerbation only Medications Wixela Inhub 250-50 mcg/dose diskus inhalerIndicatio ns:Moderate persistent asthma without complication Inhale 1 puff 2 (two) times a day Rinse mouth with water after use. Do not swallow. 1 each 3 5 Active levalbuterol (XOPENEX HFA) 45 mcg/actuation inhalerIndicatio ns:Moderate persistent asthma without complication Inhale 1-2 puffs 4 (four) times a day 15 each 1 5 Active montelukast (SINGULAIR) 10 mg tabletIndication s:Moderate persistent asthma without complication Take 1 tablet (10 mg total) by mouth nightly 90 tablet 1 5 05/18/20 26 Active montelukast (SINGULAIR) 10 mg tablet Take 1 tablet (10 mg total) by mouth nightly 3 09/15/19 25 Discontin ued(Reord er) triamcinolone (KENALOG) 0.1 % lotion Apply topically 2 (two) times a day as needed 3 09/15/19 25 Discontin ued(Thera py completed ) Wixela Inhub 250-50 mcg/dose diskus inhaler Inhale 1 puff 2 (two) times a day Rinse mouth with water after use. Do not swallow. 1 each 3 3 09/15/19 25 Discontin ued(Reord er) levalbuterol (XOPENEX HFA) 45 mcg/actuation inhaler INHALE 1-2 PUFFS BY MOUTH EVERY 4 HOURS NEEDED FOR WHEEZING. 15 each 1 4 09/15/19 25 Discontin ued(Reord er) Active Problems Problem Noted Date Diagnosed Date Asthma 04/19/2023 BMI 28.0-28.9,adult 04/19/2023 Physical exam, annual 04/19/2023 Chronic midline thoracic back pain 04/19/2023 Mild persistent asthma 02/07/2018 Immunizations Name Administration Dates Next Due DTaP 07/11/2008, 6,02/03/2006,09/16,2004 H1N1 Inj 03/31/2009 HPV, Unspecified 10/05/2017,11/14/2015 Hep A, Adult 07/11/2008,06/11/2006 Hep B, Unspecified 02/03/2006,2004, 004 HiB 02/03/2006,2004,2004 IPV 07/11/2008, 6,2004,06/26 Immune Globulin, IM 11/14/2015 Influenza, Quadrivalent, Spl it, Preservative Free, Intramuscular 07/29/2020,08/09/2019,10/05/2017,07/31,09/18/2014 Influenza, Trivalent, IM (MDV) 07/11/2008 Influenza, Unspecified 09/15/2024(Deferr ed: Patient Refused),08/23/2023(Deferred: Patient Refused),04/19/2023(Deferred: Patient Refused),08/23/2022(Deferred: Patient Refused),09/23/2021(Deferred: Patient Refused) MMR 07/11/2008,02/03/2006 Meningococcal MCV4, Unspecified 07/29/2020,11/13 PPD TEST, PPD, MULTIPUNCTURE 07/11/2008 Pneumococcal Conjugate 7-Valent 02/03/2006,06/26 Tdap 11/14/2015 Varicella 07/11/2008,02/03/2006 Social History Tobacco Use Types Packs/Day Years Used Date Smoking Tobacco: Never Smokeless Tobacco: Never Tobacco Cessation:Counseling Given: Not Answered PHQ-2 Answer Date Recorded PHQ-2 Total Score (If total score is 3 or more points, staff should administer the PHQ-9) 0 09/15/2024 Comments Unknown Sex and Gender Information Value Date Recorded Sex Assigned at Not on file Legal Sex Female 10:00 AM CDT Gender Identity Not on file Sexual Orientation Not on file Last Filed Vital Signs Vital Sign Reading Time Taken Comments Blood Pressure 118/72 09/15/2024 11:31 AM ETHANOL OPERATIONS MANAGER Pulse 79 09/15/2024 11:31 AM ETHANOL OPERATIONS MANAGER Temperature 36.6 C (97.9 F) 09/15/2024 11:31 AM ETHANOL OPERATIONS MANAGER Respiratory Rate - - Oxygen Saturation 98% 09/15/2024 11:31 AM ETHANOL OPERATIONS MANAGER Inhaled Oxygen Concentration - - Weight 77.1 kg (170 lb) 09/15/2024 11:31 AM ETHANOL OPERATIONS MANAGER Height 163.8 cm (5' 4.5 ) 09/15/2024 11:31 AM CS T Body Mass Index 28.73 09/15/2024 11:31 AM ETHANOL OPERATIONS MANAGER Plan of Treatment Not on file Procedures Procedure Name Priority Date/Time Associated Diagnosis Comments SCAN - RADIOLOGY/IMAGING 08/01/2024 SCAN - RADIOLOGY/IMAGING 07/31/2024 SCAN - RADIOLOGY/IMAGING 07/17/2024 9:19 PM ETHANOL OPERATIONS MANAGER SCAN - RADIOLOGY/IMAGING 07/17/2024 9:19 PM ETHANOL OPERATIONS MANAGER from Last 3 Months Results * SCAN - RADIOLOGY/IMAGING (08/01/2024) Anatomical Region Laterality Modality Other us Yue Goss COMPOUND WORKER Final Result * SCAN - RADIOLOGY/IMAGING (07/31/2024) Anatomical Region Laterality Modality Other us Yue Goss COMPOUND WORKER Final Result * SCAN - RADIOLOGY/IMAGING (07/17/2024 9:19 PM ETHANOL OPERATIONS MANAGER) Anatomical Region Laterality Modality Other us Provider Scanning Final Result * SCAN - RADIOLOGY/IMAGING (07/17/2024 9:19 PM ETHANOL OPERATIONS MANAGER) Anatomical Region Laterality Modality Other us Provider Scanning Final Result from Last 3 Months Insurance [facility] FEDERAL Member Subscriber Plan / Payer (Ef fective 2013-Present) Name:Katerin Messer Relation to Subscriber:Child Name:MESSERTANMAY Date of :1979 Address: [facility] [place] [address] [address] Payer ID:[id number] (NAIC) Group ID:[id number] Type:BC ALLIANCE Address: [facility] [id number] [place] [id number] Care Teams Medical Instructor Relationship Specialty Start Date End Date Yue Goss NP [address] [place] [address] PCP - General Internal Medicine 04/19/23
--- OUTSIDE RECORDS SUMMARY | 2024-09-30 19:54 | XMS_ITS | Clinical Summary ---
Author Organization [facility] Address [address] [place] [address] Care Team Providers Care Shearer Screen Measurer And Trimmer Name Role Phone None, Provider MD Primary Care Provider Unavaila ble Allergies No known active allergies Medications No known medications Social History Tobacco Use Types Packs/Day Years Used Date Smoking Tobacco: Never Assessed Comments No Sex and Gender Information Value Date Recorded Sex Assigned at Not on file Legal Sex Female 6:26 PM CDT Gender Identity Not on file Sexual Orientation Not on file Last Filed Vital Signs Vital Sign Reading Time Taken Comments Blood Pressure 114/84 02/26/2023 7:12 PM CDT Pulse 86 02/26/2023 7:12 PM CDT Temperature 37.2 C (98.9 F) 02/26/2023 6:35 PM CDT Respiratory Rate 24 02/26/2023 7:12 PM CDT Oxygen Saturation 99% 02/26/2023 7:12 PM CDT Inhaled Oxygen Concentration - - Weight 70.3 kg (155 lb) 02/26/2023 6:35 PM CDT Height 157.5 cm (5' 2 ) 02/26/2023 6:35 PM CDT Body Mass Index 28.35 02/26/2023 6:35 PM CDT Plan of Treatment Health Maintenance Due Date Last Done Comments Annual Physical 2007 HPV Vaccines (1 - 3-dose series) 2019 Meningococcal B Vaccine (1 o f 2 - Standard) 2020 Hepatitis C 2022 DTaP, Tdap and Td Vaccines ( 1 - Tdap) 2023 Hepatitis B Vaccines (1 of 3 - 19+ 3-dose series) 2023 COVID-19 Vaccine (2023-2 5 season) 2024 Influenza Adult (#1) 2024 Meningococcal Vaccine Aged Out No gladys isael eligible based on patient's age to complete this topic Pneumococcal Vaccine: Pediat rics (0 to 5 Years) and At-Risk Patients (6 to 64 Years) Aged Out No longer eligible b ased on patient's age to complete this topic RSV Immunizations Under 20 Months Aged Out No longer eligible based on patient's age to complete this topic Insurance [facility] Care Teams Shearer Screen Measurer And Trimmer Relationship Specialty Start Date End Date None, Provider, PCP - General UNKNOWN PHYSICIAN SPECIALTY 02/26/23
--- OUTSIDE RECORDS SUMMARY | 2024-09-30 19:54 | XMS_ITS | Clinical Summary ---
Author Organization [facility] Address [address] [place] [address] Phone Care Team Providers Care Nurse Examiner Name Role Phone Yue Goss NP Primary Care Provider [phone] Allergies Active Allergy Reactions Criticality Noted Date [...] back pain 04/19/2023 Mild persistent asthma 02/07/2018 Encounters Date Type Department Care Team Description 09/15/2024 11:30 AM CHANNEL BUSINESS MANAGER Office Visit [facility] Internal Medicine at [address] [place] [address] Yue Goss NP Physical exam, annual (Primary Dx); BMI 28.0-28.9,adult; Moderate persistent asthma without complication; Chronic midline thoracic back pain 08/09/2024 Telephone [facility] [address] [place] [address] [place] [phone] Yue Goss NP 08/08/2024 Telephone [facility] Medicine [address] [place] [address] [place] [phone] Yue Goss, KAUSHIK 08/01/2024 Orders Only [facility] [address] [place] [address] Yue Goss, PUBLIC WORKS COMMISSIONER 07/31/2024 Orders Only [facility] [address] [place] [address] Yue Goss NP 07/17/2024 Orders Only [facility] [address] [place] [address] Scanning, Provider 07/14/2024 Telephone [facility] Medicine [address] [place] [address] [address] [place] [address] Yue Goss NP from Last 3 Months Immunizations Name Administration Dates Next Due DTaP [...] Conjugate 7-Valent 02/03/2006,06/26 Tdap 11/14/2015 Varicella 07/11/2008,02/03/2006 Medical History Medical History Date Comments Asthma Fracture of thoracic spine ([facility]) ([facility]) Family History Medical History Relation Name Comments No Known Problems Father Anxiety disorder Mother Depression Mother Relation Name Status Comments Father Alive Mother Alive Social History Tobacco Use Types Packs/Day Years [...] on file Sexual Orientation Not on file Obstetrics History Last Filed Vital Signs Vital Sign Reading Time Taken Comments Blood Pressure 118/72 09/15/2024 11:31 AM CHANNEL BUSINESS MANAGER Pulse 79 09/15/2024 11:31 AM CHANNEL BUSINESS MANAGER Temperature 36.6 C (97.9 F) 09/15/2024 11:31 AM CHANNEL BUSINESS MANAGER Respiratory Rate - - Oxygen Saturation 98% 09/15/2024 11:31 AM CHANNEL BUSINESS MANAGER Inhaled Oxygen Concentration - - Weight 77.1 kg (170 lb) 09/15/2024 11:31 AM CHANNEL BUSINESS MANAGER Height 163.8 cm (5' 4.5 ) 09/15/2024 11:31 AM CS T Body Mass Index 28.73 09/15/2024 11:31 AM CHANNEL BUSINESS MANAGER Plan of Treatment Health Maintenance Due Date Last Done Comments Chlamydia and Gonorrhea (GC/CT) Screening 2004 Hepatitis C Screening 2004 Pneumococcal vaccine <65 (1 of 1 - PPSV23 or PCV20) 2010 02/03/2006, 2004 Meningococcal B Vaccine (1 of 2 - Patient Seeks Protection) 2020 Influenza Vaccine (#1) 2024 , 08/09/2019, 10/05/2017, Additional history exists Depression Screening 09/15/2025 09/15/2024, 04/19/20 23 Regular Well Visit/Exam 18-64 09/15/2025 09/15/2024, 04/19/2023 DTaP/Tdap/Td Vaccine (7 - Td or Tdap) 11/13/2025 11/14/2015, 07/11/2008, 08/05/2006, Additional history exists Varicella Vaccines Completed 07/11/2008, 02/03/2006 HPV Vaccines Completed 10/05/2017, 11/14/2015 Meningococcal Vaccine Aged Out 07/29/2020, 016 No longer eligible based on patient's age to complete this topic Procedures Procedure Name Priority Date/Time Associated Diagnosis Comments SCAN - RADIOLOGY/IMAGING 08/01/2024 SCAN - RADIOLOGY/IMAGING 07/31/2024 SCAN - RADIOLOGY/IMAGING 07/17/2024 9:19 PM CHANNEL BUSINESS MANAGER SCAN - RADIOLOGY/IMAGING 07/17/2024 9:19 PM CHANNEL BUSINESS MANAGER from Last 3 Months Results * SCAN - RADIOLOGY/IMAGING (08/01/2024) Anatomical Region Laterality Modality Other us Yue Goss PUBLIC WORKS COMMISSIONER Final Result * SCAN - RADIOLOGY/IMAGING (07/31/2024) Anatomical Region Laterality Modality Other us Yue Goss PUBLIC WORKS COMMISSIONER Final Result * SCAN - RADIOLOGY/IMAGING (07/17/2024 9:19 PM CHANNEL BUSINESS MANAGER) Anatomical Region Laterality Modality Other us Provider Scanning Final Result * SCAN - RADIOLOGY/IMAGING (07/17/2024 9:19 PM CHANNEL BUSINESS MANAGER) Anatomical Region Laterality Modality Other Provider Scanning Final Result from Last 3 Months Insurance [facility] [employer] Care Teams Nurse Examiner Relationship Specialty Start Date End Date Yue Goss NP [address] [place] [address] PCP - General Internal Medicine 04/19/23
--- NOTE | 2024-09-30 20:08 | ECG_ITS ---
Test Date: 2024-09-30 20:20:09 Measurements Intervals [place] Rate: 111 P: 59 FL: 124 QRS: 34 QRSD: 93 T: 58 QT: 320 QTc: 435 Interpretive Statements SINUS TACHYCARDIA ABNORMAL ECG No previous ECG available for comparison Electronically Signed On 10-01-2024 08:13:54 DATA SOLUTIONS ARCHITECT by Eyal Mtz D.O.
[2024-09-30] MEDS: methylPREDNISolone SOD SUCC 125 MG VIAL IV PUSH (20:15)
[2024-09-30] MEDS: LEVALBUTEROL NEB 1.25 MG/3 ML 2.5 MG INHALATION (20:25)
[2024-09-30] MEDS: IPRATROPIUM BR 0.02% INH SOLN 0.5 MG/2.5 ML VIAL 1.5 MG INHALATION (20:26)
--- NOTE | 2024-09-30 20:26 | ED_ITS ---
HPI - Asthma General Chief Complaint: Asthma Stated Complaint: sob, hx of asthma Time Seen by Provider: 09/30/24 19:34 Source: patient Mode of arrival: EMS Limitations: no limitations History of Present Illness HPI Narrative: Patient is a 19-year-old female who presents the ED via EMS with report of shortness of breath. Patient reports she was diagnosed with influenza 4-5 days ago. Reports her asthma has been acting up since being diagnosed with influenza. Reports initially her inhalers had been helping, but she stopped feeling relief with this today. Tried her nebulizer at home without improvement. Then contacted EMS. Reports shortness of breath, diffuse chest tightness, persistent cough. Denies fevers, lower extremity pain or swelling, hemoptysis, history of blood clots. Related Data Home Medications ?Medication ?Instructions ?Recorded ?Confirmed ?Last Taken ?Type levalbuterol tartrate 45 inhalation 05/18/24 05/18/24 Unknown History mcg/actuation aerosol inhaler Allergies Allergy/AdvReac Type Severity Reaction Status Date / Time No Known Allergies Allergy Verified 09/30/24 19:23 Review of Systems 2 Review of Systems: All systems reviewed & are unremarkable except as noted in HPI. All systems reviewed & are unremarkable except as noted in HPI and below PMFSH Past Medical History Medical History HSV-1 (herpes simplex virus 1) infection Asthma Allergies Family History Family History Mother Depression Father Depression Hypertension Sibling Depression Asthma Grandparent Hypertension Social History Social History Smoking status: Never smoker Tobacco type: e-cigarettes/vaping Alcohol intake: current Substance use: current Substance use type: marijuana Do You Feel Safe in your Home?: Yes Lack of Transportation: No Lack of Food: Never True Current Housing: I Have Housing Concerned About Future Housing: No Difficulty Paying Gas/Electric Bills: No Difficulty Paying for Meds: No Currently Unemployed: No Education: High School Diploma/GED Difficulty w/ Childcare or Family Care: No Living arrangements: with family Occupation/Education: unemployed Gender identity (if verbalized by the patient): Female Sexual Orientation (if Verbalized by the Patient): Bisexual Exam 2 Narrative: GENERAL: Well appearing, well-nourished, non-toxic, in no acute distress. HEAD: Normocephalic, atraumatic. RESPIRATORY: Airway patent, respirations nonlabored. Lung sounds are diminished bilaterally, occasional faint wheezing bilaterally. CARDIOVASCULAR: Borderline tachycardic with regular rhythm without murmurs, rubs, or gallops. MUSCULOSKELETAL: Moves all extremities. No gross deformities. No peripheral edema. SKIN: Warm, dry, normal color. NEURO: A&O X3. Speech clear. Cranial nerves II-XII grossly intact. Steady gait. No ataxic movements. PSYCHIATRIC: Appropriate mood and affect. Normal interaction. Course Vital Signs Vital signs: Vital Signs Temperature 98.2 F 09/30/24 19:15 Pulse Rate 116 H 09/30/24 19:15 Respiratory Rate 20 09/30/24 19:15 Blood Pressure 119/96 H 09/30/24 19:15 Pulse Oximetry 96 09/30/24 19:15 Oxygen Delivery Room Air 09/30/24 19:15 Temperature 98.2 F 09/30/24 19:15 Pulse Rate 99 09/30/24 21:25 Respiratory Rate 15 09/30/24 21:25 Blood Pressure 117/90 09/30/24 20:15 Pulse Oximetry 98 09/30/24 20:16 Oxygen Delivery Room Air 09/30/24 19:24 MDM - Asthma MDM Narrative Medical decision making narrative: Patient presented to ED with recent influenza diagnosis, now reporting asthma exacerbation. Patient tachycardic upon arrival. In no acute respiratory distress. Oxygenation is stable on room air, ranging from 96-99%. Will give Solu-Medrol and hour long nebulizer treatment. Also given fluids. EKG with sinus tachycardia, no concerning ST changes. Troponin undetectable. CXR is clear. D-dimer did result slightly elevated. CTA chest was obtained and unremarkable. No evidence of PE or other acute process/pneumonia. Remainder of basic laboratory studies are unremarkable. Stable electrolytes and kidney function. Discussed lab and imaging findings with patient. She is feeling much better on re-evaluation. Breathing improved. Feel she is safe for discharge home at this time with continued supportive therapy. Will prescribe short course of steroids for home. Advised patient to continue her inhalers and nebulizers at home. Recommended close follow-up with PCP for further evaluation. Patient is in agreement this plan and feels comfortable discharge home. Discharged in stable condition. Vital signs stable at time of D/ C. Tachycardia resolved. Medical Records Attestation: I reviewed the patient's medical records. Lab Data Attestation: I reviewed the patient's lab results. 09/30/24 20:49 09/30/24 20:49 Labs: Lab Results 09/30/24 Range/Units 20:49 WBC 5.4 (4.5-10.0) K/mm3 RBC 5.17 (4.2-5.4) M/mm3 Hgb 15.5 H (12.0-15.0) g/dL Hct 45.0 (37.0-47.0) % MCV 87.0 (80-100) fl MCH 30.0 (26-34) pg MCHC 34.4 (32-36) g/dl RDW 12.7 (11.5-14.5) % Plt Count 274 (150-375) k/mm3 MPV 10.3 (7.4-10.4) fl Immature Gran % (Auto) 0.2 (0-0.5) % Neut % (Auto) 65.5 (45.5-73.1) % Lymph % (Auto) 25.0 (18.3-44.2) % [place] % (Auto) 8.9 H (2.6-8.5) % Eos % (Auto) 0.2 (0-4.4) % Baso % (Auto) 0.2 (0.2-1.2) % Lymph # (Auto) 1.34 (0.9-3.2) K/mm3 [place] # (Auto) 0.5 (0.1-0.6) K/mm3 Eos # (Auto) 0.0 (0-0.3) K/mm3 Baso # (Auto) 0.0 (0.0-0.1) K/mm3 Abs Immat Gran (auto) 0.01 (0.00-0.031) K/mm3 Absolute Neuts (auto) 3.5 (1.3-6.7) K/mm3 Absolute Nucleated RBC 0.000 (0.0-0.012) K/mm3 Nucleated RBC % 0.0 (0.0-0.2) % PT 12.9 (11.1-14.7) Seconds INR 0.9 APTT 37.7 H (22.3-36.8) Seconds D-Dimer 0.59 H (<0.48) ug/mL Sodium 140 (137-145) mmol/L Potassium 3.4 (3.4-5.0) mmol/L Chloride 103 (98-107) mmol/L Carbon Dioxide 22 (22-30) mmol/L Anion Gap 15 H (4-12) mmol/L BUN 12 (7-17) mg/dL Creatinine 0.61 L (0.7-1.0) mg/dL Estim Creat Clear Calc 127 ml/min Estimated GFR > 60 (59 - ) Glucose 94 (65-110) mg/dL Calcium 9.2 (8.4-10.2) mg/dL Magnesium 1.9 (1.6-2.3) mg/dL Total Bilirubin 0.6 (0.2-1.3) mg/dL AST 43 H (14-36) U/L ALT 25 (6-35) U/L Alkaline Phosphatase 108 (38-126) U/L Troponin I < 0.012 (0.000-0.034) ng/mL Total Protein 9.0 H (6.3-8.2) g/dL Albumin 4.7 (3.5-5.1) g/dL Imaging Data Attestation: I personally reviewed and interpreted this imaging study as follows: Radiologist's impression: ITS Impressions Chest X-Ray 09/30/24 20:39 IMPRESSION: Pulmonary opacities may represent mild interstitial edema, bronchiolitis or small airways disease. Chest CTA 09/30/24 22:04 IMPRESSION: No CT evidence of acute pulmonary embolus. No acute process detected in the chest. Gallbladder hydrops, presumably secondary to fasting unless accompanied by right upper quadrant pain and/or biliary laboratory abnormalities. ECG Data EKG #1: Attestation: I personally reviewed and interpreted this ECG as follows: ECG completion date: 09/30/24 ECG completion time: 20:20 EKG Interpretation: tachycardia (111), sinus rhythm and no ST changes Discharge Plan Discharge Clinical Impression: Influenza A Asthma with acute exacerbation Qualifiers: Asthma severity: unspecified severity Asthma persistence: intermittent Q ualified Code(s): J45.21 - Mild intermittent asthma with (acute) exacerbation Patient Disposition: Home, Self-Care Condition: Stable Instructions: Antibiotic Form, Asthma (ED), Moderate and Severe Persistent Asthma (ED), Reactive Airways Disease (ED) Additional Instructions: Your workup here was reassuring. Continue your inhaler and nebulizer machines at home. Take steroids as prescribed over the next 5 days. Stay well- hydrated at home. Recommend electrolyte rich fluids, Gatorade, Pedialyte, body armor. Utilize Tessalon Perles as needed for cough. Continue Tylenol and Ibuprofen for discomfort and/or fevers. Recommend jare-hmo-kzdjgdy cough and cold medicines for symptom relief, Delsym, Mucinex, DayQuil, NyQuil, Sudafed, Robitussin, TheraFlu. Follow with primary care doctor for further evaluation. Return to the ED if you experience worsening or severe difficulty breathing, chest pain, unable to keep down food or drink, severe pain, pain or swelling in legs, or any other symptoms of concern. Patient Language: Latvian Prescriptions: New benzonatate 200 mg capsule 200 mg PO TID PRN (Reason: cough) Qty: 20 0RF prednisone 50 mg tablet 50 mg PO DAILY Qty: 5 0RF No Action levalbuterol tartrate 45 mcg/actuation HFA aerosol inhaler inhalation norethindrone-e.estradiol-iron [Junel FE 1.5/30 (28)] 1.5 mg-30 mcg (21)/75 mg (7) tablet 1 tablet PO DAILY Qty: 84 1RF cefdinir 300 mg capsule 300 mg PO Q12H 10 Days Qty: 20 0RF ibuprofen 800 mg tablet 800 mg PO TID PRN (Reason: pain) 7 Days Qty: 21 0RF acetaminophen 500 mg tablet 1,000 mg PO TID PRN (Reason: sunny) 7 Days Qty: 42 0RF cefdinir 300 mg capsule 300 mg PO Q12H Qty: 20 0RF tramadol 50 mg tablet 50 mg PO Q6H PRN (Reason: pain) Qty: 14 0RF Follow-up/Referrals: Wolfgang,KAUSHIK Turner [Primary Care Provider] - Time of Disposition: 22:46
[2024-09-30] MEDS: SODIUM CHLORIDE 0.9% IV 1,000 ML 999 ML IV CONT (20:49)
[2024-09-30 20:58] LABS: Basophils Percent Auto 0.2 % (0.2-1.2); Eosinophils Percent Auto 0.2 % (0-4.4); Hemoglobin 15.5 g/dL (12.0-15.0); Immature Granulocyte Absolute 0.01 K/mm3 (0.00-0.031); Immature Granulocyte Percent A 0.2 % (0-0.5); Lymphocytes Absolute Auto 1.34 K/mm3 (0.9-3.2); Mean Corpuscular HGB Conc 34.4 g/dl (32-36); Mean Platelet Volume 10.3 fl (7.4-10.4); Monocytes Absolute Auto 0.5 K/mm3 (0.1-0.6); Monocytes Percent Auto 8.9 % (2.6-8.5); Neutrophils Absolute Auto 3.5 K/mm3 (1.3-6.7); Neutrophils Percent Auto 65.5 % (45.5-73.1); Platelet Count Result 274 k/mm3 (150-375); Red Blood Count 5.17 M/mm3 (4.2-5.4); Red Cell Distribution Width 12.7 % (11.5-14.5); White Blood Count 5.4 K/mm3 (4.5-10.0)
[2024-09-30 21:08] LABS: INR 0.9; Prothrombin Time 12.9 Seconds (11.1-14.7)
[2024-09-30 21:09] LABS: Partial Thromboplastin Time 37.7 Seconds (22.3-36.8)
[2024-09-30 21:10] LABS: Alanine Aminotransferase 25 U/L (6-35); Albumin Level 4.7 g/dL (3.5-5.1); Alkaline Phosphatase 108 U/L (38-126); Anion Gap 15 mmol/L (4-12); Aspartate Amino Transferase 43 U/L (14-36); Bilirubin,Total 0.6 mg/dL (0.2-1.3); Blood Urea Nitrogen 12 mg/dL (7-17); Calcium 9.2 mg/dL (8.4-10.2); Carbon Dioxide 22 mmol/L (22-30); Chloride 103 mmol/L (98-107); Estimated CRCL calculation 127 ml/min; Estimated Glomerular Filt Rate > 60; Glucose 94 mg/dL (65-110); Magnesium 1.9 mg/dL (1.6-2.3); Potassium 3.4 mmol/L (3.4-5.0); Sodium 140 mmol/L (137-145)
[2024-09-30 21:14] LABS: D Dimer 0.59 ug/mL (<0.48)
[2024-09-30 21:22] LABS: Troponin I < 0.012 ng/mL (0.000-0.034)
== END 2024-09-30 23:10 | disposition home or self-care (01) ==
PROVIDERS: Emergency Provider Physician Assistant; PCP Nurse Practitioner Family
DX: J10.1 Influenza due to other identified influenza virus with other respiratory manifestations (principal); J45.21 Mild intermittent asthma with (acute) exacerbation; R00.0 Tachycardia, unspecified
CPT/HCPCS: 36415; 71045; 71275; 80053; 83735; 84484; 85025; 85380; 85610; 85730; 93005; 94640; 96361; 96374; 99284; J2919; J7030; Q9967

== ENCOUNTER 2024-11-12 11:57 | Emergency (ER) | payer BC, SELFPAY ==
--- NOTE | 2024-11-12 12:08 | ED_ITS ---
HPI - General Adult General Chief complaint: Abdominal Pain Stated complaint: SIDE PAIN Time Seen by Provider: 11/12/24 12:08 Source: patient Mode of arrival: ambulatory Limitations: no limitations History of Present Illness HPI narrative: 19-year-old female patient presents to [facility] with complaints of right-sided upper abdominal pain that started last night. Patient states she was lying in bed when the pain started. Patient states that she currently is on her menstrual cycle and it started about 3 days ago. Denies any pain with urination, urgency, frequency or odor. Patient states she did have some fish tacos last night but that was about 6 hours prior to the pain starting. Patient states she has not had anything to eat today. Denies fevers, body aches or chills. Related Data Home Medications ?Medication ?Instructions ?Recorded ?Confirmed ?Last Taken ?Type levalbuterol tartrate 45 inhalation 05/18/24 05/18/24 Unknown History mcg/actuation aerosol inhaler Allergies Allergy/AdvReac Type Severity Reaction Status Date / Time No Known Allergies Allergy Verified 11/12/24 12:21 Review of Systems Review of Systems: CONSTITUTIONAL: Denies fever, chills, or sweats. EYES: Denies visual changes, redness, or discharge. ENT: Denies rhinorrhea, congestion, sore throat, or otalgia. CARDIOVASCULAR: Denies chest pain, palpitations, or edema. RESPIRATORY: Denies cough or dyspnea. GASTROINTESTINAL: Positive right-sided abdominal pain, denies nausea, vomiting, or diarrhea. GENITOURINARY: Denies dysuria or hematuria. SKIN: Denies rash or itching. MUSCULOSKELETAL: Denies back pain, joint pain, or myalgia. NEUROLOGIC: Denies headache, numbness, or weakness. PSYCHIATRIC: Denies anxiety or depression. [facility] Past Medical History Medical History HSV-1 (herpes simplex virus 1) infection Asthma Allergies Family History Family History Mother Depression Father Depression Hypertension Sibling Depression Asthma Grandparent Hypertension Social History Social History Smoking status: Never smoker Tobacco type: e-cigarettes/vaping Alcohol intake: current Substance use: current Substance use type: marijuana Do You Feel Safe in your Home?: Yes Lack of Transportation: No Lack of Food: Never True Current Housing: I Have Housing Concerned About Future Housing: No Difficulty Paying Gas/Electric Bills: No Difficulty Paying for Meds: No Currently Unemployed: No Education: High School Diploma/GED Difficulty w/ Childcare or Family Care: No Living arrangements: with family Occupation/Education: unemployed Gender identity (if verbalized by the patient): Female Sexual Orientation (if Verbalized by the Patient): Bisexual Comments At the time of my signature I agree with nursing past medical history, surgical, social, and family history. There is no relevant family history pertinent to the presenting complaint. Exam Narrative: GENERAL: Well-appearing, well-nourished, and in no acute distress. HEAD: Normocephalic, atraumatic. EYES: PERRLA and EOMI. ENT: Nares clear, no rhinorrhea or epistaxis. Mucous membranes moist. NECK: Supple. No lymphadenopathy CHEST: Clear to auscultation. No respiratory distress. HEART: Regular rate and rhythm. No murmur heard. Normal peripheral pulses. ABDOMEN: Soft, flat, nondistended. No guarding, rebound tenderness, or rigid. No pulsatilla masses. hyperactive Bowel sounds present in all four quadrants. No organomegaly. Negative Armando?s sign. slight tenderness noted to the right upper and right lower quadrant on palpation No periumbicial tenderness. No Supra public tenderness or distension. Good femoral pulses bilaterally. No hernia noted. No scars or surface trauma. EXTREMITIES: Normal range of motion. No edema. SKIN: Warm, dry, no rash. NEURO: No focal deficits. Alert and oriented x3. Course Course Level of Care: Express Care Visit Vital Signs Vital signs: Vital Signs Temperature 36.4 C L 11/12/24 12:09 Pulse Rate 86 11/12/24 12:09 Respiratory Rate 16 11/12/24 12:09 Blood Pressure 112/90 11/12/24 12:09 Pulse Oximetry 99 11/12/24 12:09 Temperature 36.4 C L 11/12/24 12:09 Pulse Rate 86 11/12/24 12:09 Respiratory Rate 16 11/12/24 12:09 Blood Pressure 112/90 11/12/24 12:09 Pulse Oximetry 99 11/12/24 12:09 Vital signs reviewed. Medical Decision Making MDM Narrative Medical decision making narrative: patient notified that her urine came back and does not show any evidence of UTI her symptoms are not consistent with UTI as well. Discussed with patient that this could be anywhere from appendicitis, gallbladder, ovarian cyst. Discussed with patient that her vital seem to be stable and her pain seems to be under control and I would advise that if her pain gets worse or she develops fevers, vomiting, diarrhea or nausea that she goes to the ER for further evaluation oth erwise she should call follow-up with her doctor tomorrow to see if she could possibly get an ultrasound. Patient states that she will most likely call her doctor tomorrow and does not want to go to the ER today. Discussed with patient we will send her urine off for culture and if anything comes back showing evidence of an infection we will call her in an antibiotic at that time. Patient verbalized understanding denies any other questions or concerns at this time. Differential Diagnosis Differential Diagnosis: Differential diagnosis: Appendicitis, ovarian torsion, gallbladder disease, ovarian torsion, pancreatitis, lower lobe pneumonia,AAA, AMI or ACS, DKA, diverticulitis. Vital Signs Vital Signs: Vital Signs Temperature 36.4 C L 11/12/24 12:09 Pulse Rate 86 11/12/24 12:09 Respiratory Rate 16 11/12/24 12:09 Blood Pressure 112/90 11/12/24 12:09 Pulse Oximetry 99 11/12/24 12:09 Temperature 36.4 C L 11/12/24 12:09 Pulse Rate 86 11/12/24 12:09 Respiratory Rate 16 11/12/24 12:09 Blood Pressure 112/90 11/12/24 12:09 Pulse Oximetry 99 11/12/24 12:09 Lab Data Labs: Lab Results 11/12/24 Range/Units 12:17 POC Urine Color Yellow POC Urine Clarity Clear POC Urine pH 9.0 POC Ur Specif [place] 1.015 POC Urine Protein 2+ (Negative) POC Ur Glucose (UA) Negative (Negative) POC Urine Ketones Negative (Negative) POC Urine Blood Trace (Negative) POC Urine Nitrite Negative (Negative) POC Urine Bilirubin Negative (Negative) POC Urine Urobilinogen 0.2 POC U Leukocyte Esteras Negative (Negative) POC Urine HCG, Qual Negative (Negative) Critical Care Time Critical Care Time Critical Care Time: No Discharge Plan Discharge Clinical Impression: Intermittent right upper quadrant abdominal pain Patient Disposition: Home, Self-Care Condition: Stable Instructions: Antibiotic Form, Abdominal Pain (ED) Additional Instructions: No serious cause of abdominal pain is found at this time. It is important to carefully watch for changes in the abdominal pain that might suggest a serious condition. See your doctor or return to the emergency department immediately if your condition gets worse. These symptoms suggest serious causes of abdominal pain: Your unable to walk easily or walking in a bent over position. You are experiencing pain in the right lower part of her abdomen. Stepping or jumping results in severe pain. The abdomen is hard and painful when you press on it. There is severe abdominal pain when coughing. You are vomiting or gagging. Vomiting is bloody or green or looks like chocolate or coffee. The belly looks very full or basic. You're experiencing severe pain every 3-20 minutes. The stool is bloody or black. You are drowsy, weak, fussy, pale. Patient Language: Peruvian Prescriptions: No Action levalbuterol tartrate 45 mcg/actuation HFA aerosol inhaler inhalation norethindrone-e.estradiol-iron [Junel FE 1.5/30 (28)] 1.5 mg-30 mcg (21)/75 mg (7) tablet 1 tablet PO DAILY Qty: 84 1RF cefdinir 300 mg capsule 300 mg PO Q12H 10 Days Qty: 20 0RF ibuprofen 800 mg tablet 800 mg PO TID PRN (Reason: pain) 7 Days Qty: 21 0RF acetaminophen 500 mg tablet 1,000 mg PO TID PRN (Reason: sunny) 7 Days Qty: 42 0RF cefdinir 300 mg capsule 300 mg PO Q12H Qty: 20 0RF tramadol 50 mg tablet 50 mg PO Q6H PRN (Reason: pain) Qty: 14 0RF benzonatate 200 mg capsule 200 mg PO TID PRN (Reason: cough) Qty: 20 0RF prednisone 50 mg tablet 50 mg PO DAILY Qty: 5 0RF Follow-up/Referrals: Carrol,KAUSHIK Turner [Primary Care Provider] - Time of Disposition: 12:21
[2024-11-12 12:09] VITALS: BP 112/90; PULSE 86; RESP 16; TEMP 36.4; O2SAT 99
[2024-11-12 12:20] LABS: BEDSIDEPREGUCG Negative (Negative); EDUAAPPEAR Clear; EDUABILI Negative (Negative); EDUABLOOD Trace (Negative); EDUACOLOR1 Yellow; EDUAGLUCOSE Negative (Negative); EDUAKETONE Negative (Negative); EDUALEUKO Negative (Negative); EDUANITRATE Negative (Negative); EDUAPROTEIN 2+ (Negative); EDUASPGRAVITY 1.015; EDUAUROBILI 0.2
== END 2024-11-12 12:29 | disposition home or self-care (01) ==
PROVIDERS: Emergency Provider Nurse Practitioner Family; PCP Nurse Practitioner Family
DX: R10.11 Right upper quadrant pain (principal); J45.909 Unspecified asthma, uncomplicated; F12.90 Cannabis use, unspecified, uncomplicated; F17.290 Nicotine dependence, other tobacco product, uncomplicated
CPT/HCPCS: 81003; 81025; 87086; 99213; G0463

== ENCOUNTER 2024-11-17 14:22 | Emergency (ER) | payer BC, SELFPAY ==
--- NOTE | ~2024-11-17 | CT_ITS ---
CT abdomen pelvis wo con Ordering provider: Theo Hsu MD History: 19 years Female with . flank pain . Comparison: None. Technique: CT abdomen and pelvis without IV and without oral contrast. Automated exposure control and iterative reconstruction technique were employed. The dose-length product was 421.23 mGy-cm. Findings: VISUALIZED LOWER CHEST: Normal. UPPER ABDOMINAL ORGANS: Liver: Normal. Gallbladder: Normal. Spleen: Normal. Stomach/duodenum: Normal. Pancreas: Normal. Adrenals: Normal. Kidneys: Small size of the right kidney. PELVIC ORGANS: The bladder is normal. BOWEL AND MESENTERY: Colon: No evidence of diverticulitis.. Normal appendix. Small Bowel: Normal. No obstruction. Peritoneum/mesentery: No free air or free fluid. No mesenteric lymphadenopathy. RETROPERITONEUM: Normal aorta. No retroperitoneal lymphadenopathy. MUSCULOSKELETAL: Superficial soft tissues: The superficial soft tissues are normal. Bones: Normal spine. 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 IMPRESSION: 1. Atrophic right kidney. 2. No evidence of appendicitis, diverticulitis or intestinal obstruction. Reviewed, dictated and finalized at location A.
--- NOTE | ~2024-11-17 | US_ITS ---
RIGHT UPPER QUADRANT ABDOMINAL ULTRASOUND (Doppler ultrasound interrogation techniques used as needed for this exam.) Ordering provider: Theo Hsu MD History: . ruq pain . Comparison: None. FINDINGS: PANCREAS: Visualized portion shows normal echotexture and size. PORTAL VEIN: Hepatopedal flow demonstrated. LIVER: Normal size and echotexture. No focal hepatic lesions or perihepatic fluid collections are idris ntified. BILIARY DUCTS: No intra or extrahepatic biliary dilation. Common bile duct measures 2.7 mm in diamete r which is normal for patient's age. GALLBLADDER: Normal. No stones, sludge, gallbladder wall thickening or pericholecystic fluid. Wall th ickness is 2.6 mm Negative sonographic Armando's sign. Inferior vena cava: Patent FREE FLUID: None visualized within the upper abdomen. IMPRESSION: Normal right upper quadrant ultrasound. Reviewed, dictated and finalized at location A.
[2024-11-17 14:23] VITALS: BP 134/97; PULSE 100; RESP 18; TEMP 36.4; O2SAT 100
--- OUTSIDE RECORDS SUMMARY | 2024-11-17 14:26 | XMS_ITS | Clinical Summary ---
Author Organization [facility] Address [address] [place] [address] Phone Care Team Providers Care Nitrocellulose Maker Name Role Phone Yue Goss NP Primary Care Provider [phone] Allergies Active Allergy Reactions Criticality Noted Date Comments Doxycycline Cough Low 05/25/2022 Asthma exacerbation only Medications Wixela Inhub 250-50 mcg/dose diskus inhalerIndication s:Moderate persistent asthma without complication Inhale 1 puff 2 (two) times a day Rinse mouth with water after use. Do not swallow. 1 each 3 5 Active levalbuterol (XOPENEX HFA) 45 mcg/actuation inhalerIndication s:Moderate persistent asthma without complication Inhale 1-2 puffs 4 (four) times a day 15 each 1 5 Active montelukast (SINGULAIR) 10 mg tabletIndications :Moderate persistent asthma without complication Take 1 tablet (10 mg total) by mouth nightly 90 tablet 1 5 05/18/20 26 Active Active Problems Problem Noted Date Diagnosed Date Asthma 04/19/2023 BMI 28.0-28.9,adult 04/19/2023 Physical exam, annual 04/19/2023 Chronic midline thoracic back pain 04/19/2023 Mild persistent asthma 02/07/2018 Encounters Date Type Department Care Team Description 09/30/2024 Orders Only [facility] [address] [place] [address] Yue Goss NP 09/15/2024 11:30 AM CONVEYOR BELT OPERATOR Office Visit [facility] Internal Medicine at [address] [place] [address] Yue Goss, KAUSHIK Physical exam, annual (Primary Dx); BMI 28.0-28.9,adult; Moderate persistent asthma without complication; Chronic midline thoracic back pain from Last 3 Months Immunizations Immunization Administration Dates Next Due DTaP 07/11/2008, 6,02/03/2006,09/16,2004 [...] Date Comments Asthma Fracture of thoracic spine (HCC) Family History Medical History Relation Name Comments [...] Comments Blood Pressure 118/72 09/15/2024 11:31 AM CONVEYOR BELT OPERATOR Pulse 79 09/15/2024 11:31 AM CONVEYOR BELT OPERATOR Temperature 36.6 C (97.9 F) 09/15/2024 11:31 AM CONVEYOR BELT OPERATOR Respiratory Rate - - Oxygen Saturation 98% 09/15/2024 11:31 AM CONVEYOR BELT OPERATOR Inhaled Oxygen Concentration - - Weight 77.1 kg (170 lb) 09/15/2024 11:31 AM CONVEYOR BELT OPERATOR Height 163.8 cm (5' 4.5 ) 09/15/2024 11:31 AM CS T Body Mass Index 28.73 09/15/2024 11:31 AM CONVEYOR BELT OPERATOR Plan of Treatment Health Maintenance Due Date Last Done Comments Chlamydia and Gonorrhea (GC/CT) Screening 2004 Hepatitis C Screening 2004 Pneumococcal vaccine <65 (1 of 1 - PPSV23) 2010 02/03/2006, 2004 Meningococcal B Vaccine (1 of 2 - Standard) 2020 Influenza Vaccine (#1) 2024 , 08/09/2019, 10/05/2017, Additional history exists Depression Screening 09/15/2025 09/15/2024, 04/19/20 23 Regular Well Visit/Exam 18-64 09/15/2025 09/15/2024, 04/19/2023 DTaP/Tdap/Td Vaccine (7 - Td or Tdap) 11/13/2025 11/14/2015, 07/11/2008, 08/05/2006, Additional history exists Hepatitis B Screening Completed 02/03/2006 , 2004, 2004 Varicella Vaccines Completed 07/11/2008, 02/03/2006 HPV Vaccines Completed 10/05/2017, 11/14/2015 Meningococcal Vaccine Aged Out 07/29/2020, 016 No longer eligible based on patient's age to complete this topic Procedures Procedure Name Priority Date/Time Associated Diagnosis Comments SCAN - RADIOLOGY/IMAGING 09/30/2024 from Last 3 Months Results * SCAN - RADIOLOGY/IMAGING (09/30/2024) Anatomical Region Laterality Modality Other us Yue Goss NP Final Result from Last 3 Months Insurance [facility] [employer] Care Teams Nitrocellulose Maker Relationship Specialty Start Date End Date Yue Goss NP [address] [place] [address] PCP - General Internal Medicine 04/19/23
--- OUTSIDE RECORDS SUMMARY | 2024-11-17 14:26 | XMS_ITS | Clinical Summary ---
Author Organization [facility] Address [address] [place] [address] Care Team Providers Care Choreography Director Name Role Phone None, Provider MD Primary [...] patient's age to complete this topic Insurance [facility] Care Teams Choreography Director Relationship Specialty Start Date End Date None, Provider, PCP - General UNKNOWN PHYSICIAN SPECIALTY 02/26/23
--- OUTSIDE RECORDS SUMMARY | 2024-11-17 14:26 | XMS_ITS | Referral Summary ---
Author Organization [facility] Address [address] [place] [address] Phone Care Team Providers Care Machine Repairman Name Role Phone Yue Goss DECKER OPERATOR Primary Care Provider [phone] Encounters Date Type Department Care Team Description 09/30/2024 Orders Only [facility] [address] [place] [address] Yue Goss NP 09/15/2024 11:30 AM BEADING INSTALLER Office Visit [facility] Internal Medicine at [address] [place] [phone] Yue Goss NP Physical exam, annual (Primary Dx); BMI 28.0-28.9,adult; Moderate persistent asthma without complication; Chronic midline thoracic back pain from Last 3 Months Allergies Active Allergy [...] pain 04/19/2023 Mild persistent asthma 02/07/2018 Immunizations Immunization Administration Dates Next Due DTaP [...] Comments Blood Pressure 118/72 09/15/2024 11:31 AM BEADING INSTALLER Pulse 79 09/15/2024 11:31 AM BEADING INSTALLER Temperature 36.6 C (97.9 F) 09/15/2024 11:31 AM BEADING INSTALLER Respiratory Rate - - Oxygen Saturation 98% 09/15/2024 11:31 AM BEADING INSTALLER Inhaled Oxygen Concentration - - Weight 77.1 kg (170 lb) 09/15/2024 11:31 AM BEADING INSTALLER Height 163.8 cm (5' 4.5 ) 09/15/2024 11:31 AM CS T Body Mass Index 28.73 09/15/2024 11:31 AM BEADING INSTALLER Plan of Treatment Not on file Procedures Procedure Name Priority Date/Time Associated Diagnosis Comments SCAN - RADIOLOGY/IMAGING 09/30/2024 from Last 3 Months Results * SCAN - RADIOLOGY/IMAGING (09/30/2024) Anatomical Region Laterality Modality Other Yue Goss NP Final Result from Last 3 Months Insurance [facility] FEDERAL Care Teams Machine Repairman Relationship Specialty Start Date End Date Yue Goss NP [address] [address] PCP - General Internal Medicine 04/19/23
--- OUTSIDE RECORDS SUMMARY | 2024-11-17 14:26 | XMS_ITS | Continuity of Care Document ---
Author Organization [facility] Address [address] [place] [address] Care Team Providers Care Transit Mixer Driver Name Role Phone Vandana RENO, Dean Unavailable [...] Diagnoses Date Provider Providers Copied on Encounter [facility], [address], [place], [place], [id number] , [facility] [place] No Information 3 Angelinachiarashavon Luiszer. [address], [place], [address], . tel:[phone] OFFICE/OUTPA TIENT VISIT, [facility], [address], [place], [place], [id number] , [facility] [place] ER follow up (chief complaint) Viral gastroenteritisCy stic kidney disease, unspecifiedPerson al history, Urinary (tract) infection 2 No Information OFFICE/OUTPA TIENT VISIT, [facility], [address] [place] [address], [id number] , [facility] [place] Vaginal discomfort (chief complaint)p ain w/ urination (chief complaint) Cyst of right kidneyUrinary Tract InfectionVulvar candidiasis 2 No Information OFFICE/OUTPA TIENT VISIT, [facility], [address] [place] [address], [id number] , [facility] [place] UC UTI problems (chief complaint) Dysuria 2 Sunita Cochran. [address] [place] [address], [place], [address], [place]. tel:[phone] OFFICE/OUTPA TIENT VISIT, [facility], [address], [place], [place], [id number] , [facility] [place] follow up from previous visit (chief complaint)p erineal discomfort (chief complaint) DysuriaConstipati on, unspecifiedDehydr ation 2 No Information OFFICE/OUTPA TIENT VISIT, [facility], [address], [place], [place], [phone] , [facility] [place] Urine Discomfort (chief complaint) DehydrationAllerg ic rhinitis, cause unspecifiedConsti pationDysuriaDysu leonardo 2 No Information OFFICE/OUTPA TIENT VISIT, [facility], [address], [place], [place], [phone] , [facility] [place] UC UTI (chief complaint) UTI (urinary tract infection) 2 No Information OFFICE/OUTPA TIENT VISIT, [facility], [address], [place], [id number] , [facility] [place] lump on right breast (chief complaint)i njury to index finger (chief complaint) Cellulitis 2 No Information OFFICE/OUTPA TIENT VISIT, [facility], [address], [place], [place], [phone] , [facility] [place] vaginal itching x2dys (chief complaint)u rinary frequency x 2dys (chief complaint) Urinary frequency 8 2 Odunusi Dean. [address], [place], [address], . tel:[phone] OFFICE/OUTPA TIENT VISIT, [facility], [address], [place], [place], [id number] , [facility] [place] UC right lower abdominal pain (chief complaint) NauseaAbdominal pain, acute, right lower quadrantSinusitis 1 No Information OFFICE/OUTPA TIENT VISIT, [facility], [address], [place], [place], [id number] , [facility] [place] poss. UTI (chief complaint) Urinary system symptoms, other 1 No Information OFFICE/OUTPA TIENT VISIT, [facility], [address], [place], [place], [id number] , [facility] [place] abdominal pain since this morning (chief complaint) UTI (urinary tract infection) 1 Odunusi Dean. [address], [place], [address], [place]. tel:[phone] OFFICE/OUTPA TIENT VISIT, [facility], [address], [place], [place], [id number] , [facility] [place] lt earache x 3dys on and off (chief complaint)l ow grade fever this am (chief complaint) Otitis media 2 1 Odunusi Dean. [address], [place], [address], [place]. tel:[phone] OFFICE/OUTPA TIENT VISIT, [facility], [address], [place], [phone] , [facility] (chief complaint)f ever (chief complaint) Pneumonia Sep-1 [phone] 0 Vandana Moran. [address], [place], [address], . tel:[phone] Family History Family Member Type Diagnosis Age [...] republican ID Authormisha rizvi(s) Blue Shield Comm [facility] [id number] Social History Type Description Quantity Date Captured Comments Sex Female Smoking Status No Information Chief Complaint And Reason For Visit No Information Reason For Referral Reason For Referral No Information Plan Of Treatment Date Type Action Status Goal Vision Screen (8-9 yr). Due on due Goal Hearing Screen (8-9 yr). Due on due Goal Well visit (8 years). Due on due History Of Present Illness Encounter Date Complaint History Of Prese nt Illness No Information Functional Status Date Functional Assessmen t No Information Instructions Date Instruction Additional Infor mation No Information Assessments Type Assessment Date No Information Patient Care Teams Name Effective Dates (start - stop) Status Members No Information
[2024-11-17 17:03] LABS: Basophils Absolute Auto 0.1 K/mm3 (0.0-0.1); Basophils Percent Auto 0.7 % (0.2-1.2); Eosinophils Absolute Auto 0.1 K/mm3 (0-0.3); Eosinophils Percent Auto 1.3 % (0-4.4); Hematocrit 47.9 % (37.0-47.0); Hemoglobin 16.5 g/dL (12.0-15.0); Immature Granulocyte Absolute 0.02 K/mm3 (0.00-0.031); Immature Granulocyte Percent A 0.2 % (0-0.5); Mean Corpuscular HGB Conc 34.4 g/dl (32-36); Mean Corpuscular Hemoglobin 30.7 pg (26-34); Monocytes Absolute Auto 0.5 K/mm3 (0.1-0.6); Monocytes Percent Auto 5.5 % (2.6-8.5); Neutrophils Absolute Auto 6.3 K/mm3 (1.3-6.7); Neutrophils Percent Auto 69.3 % (45.5-73.1); Platelet Count Result 362 k/mm3 (150-375); Red Blood Count 5.38 M/mm3 (4.2-5.4); Red Cell Distribution Width 13.4 % (11.5-14.5); White Blood Count 9.1 K/mm3 (4.5-10.0)
[2024-11-17 17:17] LABS: Add Urine Microscopic? YES; Appearance Urine Cloudy (Clear); Bacteria Urine 1+ /hpf; Bilirubin Urine Negative (Negative); Blood Urine Negative (Negative); Color Urine Yellow (Yellow); Glucose Urine UA Negative (Negative); Ketones Urine Negative (Negative); Leukocyte Esterase Ur Trace LEU/UL (Negative); Need Manual Microscopic Reviewed; Nitrate Urine Negative (Negative); Non Pathogenic Casts 0-2; Protein Urine Trace mg/dL (Negative); Specific Grav Ur 1.027 (1.001-1.035); Squamous Epithelial Cell Urine Occasional /hpf (Few)
[2024-11-17 17:20] LABS: Alanine Aminotransferase 26 U/L (6-35); Albumin Level 5.1 g/dL (3.5-5.1); Alkaline Phosphatase 134 U/L (38-126); Anion Gap 17 mmol/L (4-12); Aspartate Amino Transferase 29 U/L (14-36); Bilirubin,Total 0.7 mg/dL (0.2-1.3); Blood Urea Nitrogen 16 mg/dL (7-17); Calcium 10.3 mg/dL (8.4-10.2); Carbon Dioxide 22 mmol/L (22-30); Chloride 101 mmol/L (98-107); Estimated CRCL calculation 111 ml/min; Estimated Glomerular Filt Rate > 60; Glucose 86 mg/dL (65-110); Potassium 3.7 mmol/L (3.4-5.0); Sodium 140 mmol/L (137-145)
--- NOTE | 2024-11-17 18:29 | ED_ITS ---
HPI - Abdominal Pain General Chief Complaint: Abdominal Pain <Theo Hsu MD - Last Filed: 11/17/24 18:53> Stated Complaint: Flank Pain/Gallbladder area <Theo Hsu MD - Last Filed: 11/17/24 18:53> Time Seen by Provider: 11/17/24 16:26 <Theo Hsu MD - Last Filed: 11/17/24 18:53> Source: patient <Theo Hsu MD - Last Filed: 11/17/24 18:53> Mode of arrival: ambulatory <Theo Hsu MD - Last Filed: 11/17/24 18:53> Limitations: no limitations <Theo Hsu MD - Last Filed: 11/17/24 18:53> History of Present Illness HPI narrative: 19-year-old otherwise healthy here with the complaints of right upper abdominal pain radiating into her right back which started about a week ago. Patient states that she went to urgent care a week ago and was advised to go to the emergency room if the pain gets worse. She denies any fever or chills no urinary symptoms. <Theo Hsu MD - Last Filed: 11/17/24 18:53> MD elicited complaint: abdominal pain <Theo Hsu MD - Last Filed: 11/17/24 18:53> Pertinent past history: none <Theo Hsu MD - Last Filed: 11/17/24 18:53> Onset (ago): week(s) (1) <Theo Hsu MD - Last Filed: 11/17/24 18:53> Pain Consistency: constant <Theo Hsu MD - Last Filed: 11/17/24 18:53> Location: RUQ <Theo Hsu MD - Last Filed: 11/17/24 18:53> Severity: moderate <Theo Hsu MD - Last Filed: 11/17/24 18:53> Quality: aching <Theo Hsu MD - Last Filed: 11/17/24 18:53> Radiation: RUQ <Theo Hsu MD - Last Filed: 11/17/24 18:53> Migration to: R flank <Theo Hsu MD - Last Filed: 11/17/24 18:53> Exacerbating factors: nothing <Theo Hsu MD - Last Filed: 11/17/24 18:53> Relieving factors: nothing <Theo Hsu MD - Last Filed: 11/17/24 18:53> Associated symptoms: denies other symptoms <Theo Hsu MD - Last Filed: 11/17/24 18:53> Related Data Home Medications: Home Medications ?Medication ?Instructions ?Recorded ?Confirmed ?Last Taken ?Type levalbuterol tartrate 45 inhalation 05/18/24 05/18/24 Unknown History mcg/actuation aerosol inhaler <Theo Hsu MD - Last Filed: 11/17/24 18:53> Allergies/Adverse Reactions: Allergies Allergy/AdvReac Type Severity Reaction Status Date / Time No Known Allergies Allergy Verified 11/17/24 14:23 <Theo Hsu MD - Last Filed: 11/17/24 18:53> Review of Systems 2 Review of Systems: All systems reviewed & are unremarkable except as noted in HPI and below <Theo Hsu MD - Last Filed: 11/17/24 18:53> Constitutional: Constitutional: Reports no additional constitutional complaints <Theo Hsu MD - Last Filed: 11/17/24 18:53> Eyes: Eyes: Reports no additional eye complaints <Theo Hsu MD - Last Filed: 11/17/24 18:53> ENT: Reports system reviewed and no additional complaints, except as documented <Theo Hsu MD - Last Filed: 11/17/24 18:53> Cardiovascular: Cardiovascular: Reports no additional cardiovascular complaints <Theo Hsu MD - Last Filed: 11/17/24 18:53> Respiratory: Respiratory: Reports no additional respiratory complaints < Theo Hsu MD - Last Filed: 11/17/24 18:53> Gastrointestinal: Gastrointestinal: Reports as per HPI <Theo Hsu MD - Last Filed: 11/17/24 18:53> Genitourinary: Genitourinary: Reports no additional female genitourinary complaints <Theo Hsu MD - Last Filed: 11/17/24 18:53> Musculoskeletal: Musculoskeletal: Reports no additional musculoskeletal complaints <Theo Hsu MD - Last Filed: 11/17/24 18:53> Integumentary/Breasts: Skin/Breast: Reports system reviewed and no additional complaints, except as docu <Theo Hsu MD - Last Filed: 11/17/24 18:53> PMFSH Past Medical History Medical History: Medical History HSV-1 (herpes simplex virus 1) infection Asthma Allergies <Theo Hsu MD - Last Filed: 11/17/24 18:53> Family History Family History: Family History Mother Depression Father Depression Hypertension Sibling Depression Asthma Grandparent Hypertension <Theo Hsu MD - Last Filed: 11/17/24 18:53> Social History Social History: Social History Smoking status: Never smoker Tobacco type: e-cigarettes/vaping Alcohol intake: current Substance use: current Substance use type: marijuana Do You Feel Safe in your Home?: Yes Lack of Transportation: No Lack of Food: Never True Current Housing: I Have Housing Concerned About Future Housing: No Difficulty Paying Gas/Electric Bills: No Difficulty Paying for Meds: No Currently Unemployed: No Education: High School Diploma/GED Difficulty w/ Childcare or Family Care: No Living arrangements: with family Occupation/Education: unemployed Gender identity (if verbalized by the patient): Female Sexual Orientation (if Verbalized by the Patient): Bisexual <Theo Hsu MD - Last Filed: 11/17/24 18:53> Exam 2 Narrative: GENERAL: Well-appearing, well-nourished, and in no acute distress. HEAD: Normocephalic, atraumatic. EYES: PERRLA and EOMI. ENT: Nares clear, no rhinorrhea or epistaxis. Mucous membranes moist. NECK: Supple. CHEST: Clear to auscultation. No respiratory distress. HEART: Regular rate and rhythm. No murmur heard. Normal peripheral pulses. ABDOMEN: Soft, tender in the RUQ , nondistended, normal active bowel sounds. EXTREMITIES: Normal range of motion. No edema. SKIN: Warm, dry, no rash. NEURO: No focal deficits. Alert and oriented x3. PSYCH: Normal mood and affect. <Theo Hsu MD - Last Filed: 11/17/24 18:53> Course Course Emergency Course: Patient comfortably resting on the bed in no discomfort informed about the lab work, ultrasound findings. She still continues to have pain on the back he now will do a CT of the abdomen and pelvis to rule out kidney stone. <Theo Hsu MD - Last Filed: 11/17/24 18:53> Patient comfortably resting on the bed in no discomfort informed about the lab work, ultrasound findings. She still continues to have pain on the back he now will do a CT of the abdomen and pelvis to rule out kidney stone. ZYCH: Patient signed out pending CT abdomen pelvis. CT abdomen pelvis was unremarkable. Patient states that she has had pain like this in the past when she has had a urinary tract infection and she does have some signs of infection in her urine. This would be highly atypical presentation for UTI being treated with short course of Keflex see if that improves her symptoms. Discharged with primary care follow-up. Given return precautions. <Clayton Calderon MD - Last Filed: 11/17/24 21:05> Vital Signs Vital signs: Vital Signs Temperature 97.6 F 11/17/24 14:23 Pulse Rate 100 11/17/24 14:23 Respiratory Rate 18 11/17/24 14:23 Blood Pressure 134/97 H 11/17/24 14:23 Pulse Oximetry 100 11/17/24 14:23 Oxygen Delivery Room Air 11/17/24 14:23 Temperature 97.6 F 11/17/24 14:23 Pulse Rate 64 11/17/24 19:00 Respiratory Rate 16 11/17/24 19:00 Blood Pressure 117/91 H 11/17/24 19:00 Pulse Oximetry 100 11/17/24 19:00 Oxygen Delivery Room Air 11/17/24 14:23 <Theo Hsu MD - Last Filed: 11/17/24 18:53> Vital Signs Temperature 97.6 F 11/17/24 14:23 Pulse Rate 100 11/17/24 14:23 Respiratory Rate 18 11/17/24 14:23 Blood Pressure 134/97 H 11/17/24 14:23 Pulse Oximetry 100 11/17/24 14:23 Oxygen Delivery Room Air 11/17/24 14:23 Temperature 97.6 F 11/17/24 14:23 Pulse Rate 64 11/17/24 19:00 Respiratory Rate 16 11/17/24 19:00 Blood Pressure 117/91 H 11/17/24 19:00 Pulse Oximetry 100 11/17/24 19:00 Oxygen Delivery Room Air 11/17/24 14:23 <Clayton Calderon MD - Last Filed: 11/17/24 21:05> MDM - Abdominal Pain Lab Data Result diagrams: 11/17/24 16:56 11/17/24 16:56 <Theo Hsu MD - Last Filed: 11/17/24 18:53> Labs: Lab Results 11/17/24 11/17/24 11/17/24 Range/Units 16:54 16:56 18:55 WBC 9.1 (4.5-10.0) K/mm3 RBC 5.38 (4.2-5.4) M/mm3 Hgb 16.5 H (12.0-15.0) g/dL Hct 47.9 H (37.0-47.0) % MCV 89.0 (80-100) fl MCH 30.7 (26-34) pg MCHC 34.4 (32-36) g/dl RDW 13.4 (11.5-14.5) % Plt Count 362 (150-375) k/mm3 MPV 11.0 H (7.4-10.4) fl Immature Gran % (Auto) 0.2 (0-0.5) % Neut % (Auto) 69.3 (45.5-73.1) % Lymph % (Auto) 23.0 (18.3-44.2) % Bennett % (Auto) 5.5 (2.6-8.5) % Eos % (Auto) 1.3 (0-4.4) % Baso % (Auto) 0.7 (0.2-1.2) % Lymph # (Auto) 2.10 (0.9-3.2) K/mm3 Bennett # (Auto) 0.5 (0.1-0.6) K/mm3 Eos # (Auto) 0.1 (0-0.3) K/mm3 Baso # (Auto) 0.1 (0.0-0.1) K/mm3 Abs Immat Gran (auto) 0.02 (0.00-0.031) K/mm3 Absolute Neuts (auto) 6.3 (1.3-6.7) K/mm3 Absolute Nucleated RBC 0.000 (0.0-0.012) K/mm3 Nucleated RBC % 0.0 (0.0-0.2) % Sodium 140 (137-145) mmol/L Potassium 3.7 (3.4-5.0) mmol/L Chloride 101 (98-107) mmol/L Carbon Dioxide 22 (22-30) mmol/L Anion Gap 17 H (4-12) mmol/L BUN 16 (7-17) mg/dL Creatinine 0.62 L (0.7-1.0) mg/dL Estim Creat Clear Calc 111 ml/min Estimated GFR > 60 (59 - ) Glucose 86 (65-110) mg/dL Calcium 10.3 H (8.4-10.2) mg/dL Total Bilirubin 0.7 (0.2-1.3) mg/dL AST 29 (14-36) U/L ALT 26 (6-35) U/L Alkaline Phosphatase 134 H (38-126) U/L Total Protein 10.0 H (6.3-8.2) g/dL Albumin 5.1 (3.5-5.1) g/dL Urine Color Yellow (Yellow) Urine Appearance Cloudy H (Clear) Urine pH 7.0 (5.0-9.0) Ur Specific [place] 1.027 (1.001-1.035) Urine Protein Trace (Negative) mg/dL Urine Glucose (UA) Negative (Negative) mg/dL Urine Ketones Negative (Negative) mg/dL Ur Blood (Man) Negative (Negative) Urine Nitrate Negative (Negative) Urine Bilirubin Negative (Negative) Urine Urobilinogen 1.0 (<2.0) mg/dL Add Ur Microanalysis Reviewed Leukocyte Esterase Rfl Trace H (Negative) BAHMAN/UL Urine RBC 11-20 H (0-2) /hpf Urine WBC 6-10 H (0-3) /hpf Ur Squamous Epith Cells Occasional (Few) /hpf Urine Bacteria 1+ H /hpf Urine Casts 0-2 POC Urine HCG, Qual Negative (Negative) <Theo Kanumuri, MD - Last Filed: 11/17/24 18:53> Lab Results 11/17/24 11/17/24 11/17/24 Range/Units 16:54 16:56 18:55 WBC 9.1 (4.5-10.0) K/mm3 RBC 5.38 (4.2-5.4) M/mm3 Hgb 16.5 H (12.0-15.0) g/dL Hct 47.9 H (37.0-47.0) % MCV 89.0 (80-100) fl MCH 30.7 (26-34) pg MCHC 34.4 (32-36) g/dl RDW 13.4 (11.5-14.5) % Plt Count 362 (150-375) k/mm3 MPV 11.0 H (7.4-10.4) fl Immature Gran % (Auto) 0.2 (0-0.5) % Neut % (Auto) 69.3 (45.5-73.1) % Lymph % (Auto) 23.0 (18.3-44.2) % Bennett % (Auto) 5.5 (2.6-8.5) % Eos % (Auto) 1.3 (0-4.4) % Baso % (Auto) 0.7 (0.2-1.2) % Lymph # (Auto) 2.10 (0.9-3.2) K/mm3 Bennett # (Auto) 0.5 (0.1-0.6) K/mm3 Eos # (Auto) 0.1 (0-0.3) K/mm3 Baso # (Auto) 0.1 (0.0-0.1) K/mm3 Abs Immat Gran (auto) 0.02 (0.00-0.031) K/mm3 Absolute Neuts (auto) 6.3 (1.3-6.7) K/mm3 Absolute Nucleated RBC 0.000 (0.0-0.012) K/mm3 Nucleated RBC % 0.0 (0.0-0.2) % Sodium 140 (137-145) mmol/L Potassium 3.7 (3.4-5.0) mmol/L Chloride 101 (98-107) mmol/L Carbon Dioxide 22 (22-30) mmol/L Anion Gap 17 H (4-12) mmol/L BUN 16 (7-17) mg/dL Creatinine 0.62 L (0.7-1.0) mg/dL Estim Creat Clear Calc 111 ml/min Estimated GFR > 60 (59 - ) Glucose 86 (65-110) mg/dL Calcium 10.3 H (8.4-10.2) mg/dL Total Bilirubin 0.7 (0.2-1.3) mg/dL AST 29 (14-36) U/L ALT 26 (6-35) U/L Alkaline Phosphatase 134 H (38-126) U/L Total Protein 10.0 H (6.3-8.2) g/dL Albumin 5.1 (3.5-5.1) g/dL Urine Color Yellow (Yellow) Urine Appearance Cloudy H (Clear) Urine pH 7.0 (5.0-9.0) Ur Specific [place] 1.027 (1.001-1.035) Urine Protein Trace (Negative) mg/dL Urine Glucose (UA) Negative (Negative) mg/dL Urine Ketones Negative (Negative) mg/dL Ur Blood (Man) Negative (Negative) Urine Nitrate Negative (Negative) Urine Bilirubin Negative (Negative) Urine Urobilinogen 1.0 (<2.0) mg/dL Add Ur Microanalysis Reviewed Leukocyte Esterase Rfl Trace H (Negative) BAHMAN/UL Urine RBC 11-20 H (0-2) /hpf Urine WBC 6-10 H (0-3) /hpf Ur Squamous Epith Cells Occasional (Few) /hpf Urine Bacteria 1+ H /hpf Urine Casts 0-2 POC Urine HCG, Qual Negative (Negative) <Clayton Calderon MD - Last Filed: 11/17/24 21:05> Imaging Data Radiologist's impression: ITS Impressions Upper Quadrant Ultrasound 11/17/24 17:25 IMPRESSION: Normal right upper quadrant ultrasound. Abdomen/Pelvis CT 11/17/24 20:28 IMPRESSION: 1. Atrophic right kidney. 2. No evidence of appendicitis, diverticulitis or intestinal obstruction. <Theo Hsu MD - Last Filed: 11/17/24 18:53> ITS Impressions Upper Quadrant Ultrasound 11/17/24 17:25 IMPRESSION: Normal right upper quadrant ultrasound. Abdomen/Pelvis CT 11/17/24 20:28 IMPRESSION: 1. Atrophic right kidney. 2. No evidence of appendicitis, diverticulitis or intestinal obstruction. <Clayton Calderon MD - Last Filed: 11/17/24 21:05> Discharge Plan Discharge Clinical Impression: Abdominal pain, RUQ, UTI (urinary tract infection) <Theo Hsu MD - Last Filed: 11/17/24 18:53> Patient Disposition: Home, Self-Care <Theo Hsu MD - Last Filed: 11/17/24 18:53> Condition: Stable <Theo Hsu MD - Last Filed: 11/17/24 18:53> Instructions: Antibiotic Form, Urinary Tract Infection in Women (DC), Abdominal Pain (ED) <Theo Hsu MD - Last Filed: 11/17/24 18:53> Additional Instructions: You seen emergency department for abdominal pain. We did not find a definitive cause today. He said that you experience pain like this before review of UTI so we can treat her with short course of Keflex see them. She symptoms. Otherwise please follow-up with your primary care physician in 1 week. You can use Motrin and Tylenol for pain. If you develop fevers, severe abdominal pain, or any new or worsening symptoms please return ED for re- evaluation. <Theo Hsu MD - Last Filed: 11/17/24 18:53> Patient Language: Hungarian <Theo Hsu MD - Last Filed: 11/17/24 18:53> Prescriptions: New ibuprofen 800 mg tablet 800 mg PO TID PRN (Reason: pain) 7 Days Qty: 21 0RF acetaminophen 500 mg tablet 1,000 mg PO TID PRN (Reason: sunny) 7 Days Qty: 42 0RF cephalexin 500 mg capsule 500 mg PO Q12H Qty: 10 0RF No Action levalbuterol tartrate 45 mcg/actuation HFA aerosol inhaler inhalation norethindrone-e.estradiol-iron [Junel FE 1.5/30 (28)] 1.5 mg-30 mcg (21)/75 mg (7) tablet 1 tablet PO DAILY Qty: 84 1RF ibuprofen 800 mg tablet 800 mg PO TID PRN (Reason: pain) 7 Days Qty: 21 0RF acetaminophen 500 mg tablet 1,000 mg PO TID PRN (Reason: sunny) 7 Days Qty: 42 0RF <Theo Hsu MD - Last Filed: 11/17/24 18:53> Follow-up/Referrals: Wolfgang,KAUSHIK Turner [Primary Care Provider] - <Theo Hsu MD - Last Filed: 11/17/24 18:53>
[2024-11-17 18:56] LABS: BEDSIDEPREGUCG Negative (Negative)
[2024-11-17 19:00] VITALS: BP 117/91; PULSE 64; RESP 16; O2SAT 100
--- OUTSIDE RECORDS SUMMARY | 2024-11-17 19:37 | XMS_ITS | Clinical Summary ---
Author Organization [facility] Address [address] [place] [address] Phone Care Team Providers Care Studio Operations Manager Name Role Phone Yue Goss NP Primary Care Provider [phone] Allergies Active Allergy Reactions Criticality Noted Date [...] Department Care Team Description 09/30/2024 Orders Only [facility] [place] Health Information Management [address] [place] [address] Yue Goss NP 09/15/2024 11:30 AM FLAG DECORATOR Office Visit [facility] Medical Group Internal Medicine at [address] [place] [address] Yue Goss, KAUSHIK Physical exam, [...] Comments Blood Pressure 118/72 09/15/2024 11:31 AM FLAG DECORATOR Pulse 79 09/15/2024 11:31 AM FLAG DECORATOR Temperature 36.6 C (97.9 F) 09/15/2024 11:31 AM FLAG DECORATOR Respiratory Rate - - Oxygen Saturation 98% 09/15/2024 11:31 AM FLAG DECORATOR Inhaled Oxygen Concentration - - Weight 77.1 kg (170 lb) 09/15/2024 11:31 AM FLAG DECORATOR Height 163.8 cm (5' 4.5 ) 09/15/2024 11:31 AM CS T Body Mass Index 28.73 09/15/2024 11:31 AM FLAG DECORATOR Plan of Treatment Health Maintenance Due Date [...] Final Result from Last 3 Months Insurance [facility] FEDERAL Care Teams Studio Operations Manager Relationship Specialty Start Date End Date uYe Goss NP [address] [place] [address] PCP - General Internal Medicine 04/19/23
--- OUTSIDE RECORDS SUMMARY | 2024-11-17 19:37 | XMS_ITS | Clinical Summary ---
Author Organization [facility] Address [address] [place] [id number] Care Team Providers Care Kiln Tender Name Role Phone None, Provider MD Primary [...] patient's age to complete this topic Insurance [facility] Care Teams Kiln Tender Relationship Specialty Start Date End Date None, Provider, PCP - General UNKNOWN PHYSICIAN SPECIALTY 02/26/23
--- OUTSIDE RECORDS SUMMARY | 2024-11-17 19:37 | XMS_ITS | Referral Summary ---
Author Organization [facility] Address [address] [place] [address] Phone Care Team Providers Care Visual Communications Instructor Name Role Phone Yue Goss FIRE AND EXPLOSION INVESTIGATOR Primary Care Provider [phone] Encounters Date Type Department Care Team Description 09/30/2024 Orders Only [facility] [place] Information Management [address] [place] [address] Yue Goss NP 09/15/2024 11:30 AM SENIOR PROCESS ANALYST Office Visit [facility] Medical Group Internal Medicine at [address] [place] [id number] Yue Goss NP Physical exam, annual (Primary [...] Comments Blood Pressure 118/72 09/15/2024 11:31 AM SENIOR PROCESS ANALYST Pulse 79 09/15/2024 11:31 AM SENIOR PROCESS ANALYST Temperature 36.6 C (97.9 F) 09/15/2024 11:31 AM SENIOR PROCESS ANALYST Respiratory Rate - - Oxygen Saturation 98% 09/15/2024 11:31 AM SENIOR PROCESS ANALYST Inhaled Oxygen Concentration - - Weight 77.1 kg (170 lb) 09/15/2024 11:31 AM SENIOR PROCESS ANALYST Height 163.8 cm (5' 4.5 ) 09/15/2024 11:31 AM CS T Body Mass Index 28.73 09/15/2024 11:31 AM SENIOR PROCESS ANALYST Plan of Treatment Not on file Procedures Procedure Name Priority Date/Time Associated Diagnosis Comments SCAN - RADIOLOGY/IMAGING 09/30/2024 from Last 3 Months Results * SCAN - RADIOLOGY/IMAGING (09/30/2024) Anatomical Region Laterality Modality Other Yue Goss NP Final Result from Last 3 Months Insurance [facility] FEDERAL Care Teams Visual Communications Instructor Relationship Specialty Start Date End Date Yue Goss NP [address] [address] PCP - General Internal Medicine 04/19/23
--- OUTSIDE RECORDS SUMMARY | 2024-11-17 19:37 | XMS_ITS | Continuity of Care Document ---
Author Organization [facility] Address [address] [place] [address] Care Team Providers Care High School Science Tutor Name Role Phone Vandana RENO, Dean Unavailable [...] Diagnoses Date Provider Providers Copied on Encounter [facility], [address], [place], [place], [id number] , [facility] [place] No Information 3 Angelinachiarashavon Luiszer. [address] [facility] [facility] [place] [address], [place], [address], . tel:[phone] OFFICE/OUTPA TIENT VISIT, [facility], [address], [place], [place], [id number] , [facility] [place] ER follow up (chief complaint) Viral gastroenteritisCy stic kidney disease, unspecifiedPerson al history, Urinary (tract) infection 2 No Information OFFICE/OUTPA TIENT VISIT, [facility], [address] [place] [address], [phone] , [facility] [place] Vaginal discomfort (chief complaint)p ain w/ urination (chief complaint) Cyst of right kidneyUrinary Tract InfectionVulvar candidiasis 2 No Information OFFICE/OUTPA TIENT VISIT, [facility], [address] [place] [address], [phone] , [facility] [place] UC UTI problems (chief complaint) Dysuria 2 Sunita Cochran. [address] [place] [address], [place], [address], [place]. tel:[phone] OFFICE/OUTPA TIENT VISIT, [facility], [address], [place], [place], [phone] , [facility] [place] follow up from previous visit (chief complaint)p erineal discomfort (chief complaint) DysuriaConstipati on, unspecifiedDehydr ation 2 No Information OFFICE/OUTPA TIENT VISIT, [facility], [address], [place], [place], [phone] , [facility] [place] Urine Discomfort (chief complaint) DehydrationAllerg ic rhinitis, cause unspecifiedConsti pationDysuriaDysu leonardo 2 No Information OFFICE/OUTPA TIENT VISIT, [facility], [address], [place], [place], [phone] , [facility] [place] UC UTI (chief complaint) UTI (urinary tract infection) 2 No Information OFFICE/OUTPA TIENT VISIT, [facility], [address], [place], [place], [phone] , [facility] [place] lump on right breast (chief complaint)i njury to index finger (chief complaint) Cellulitis 2 No Information OFFICE/OUTPA TIENT VISIT, [facility], [address], [place], [place], [phone] , [facility] [place] vaginal itching x2dys (chief complaint)u rinary frequency x 2dys (chief complaint) Urinary frequency 8 2 Odunusi Dean. [address] [facility] [place] [facility] [place] [address], [place], [address], . tel:[phone] OFFICE/OUTPA TIENT VISIT, [facility], [address], [place], [place], [id number] , [facility] [place] [facility] right lower abdominal pain (chief complaint) NauseaAbdominal pain, acute, right lower quadrantSinusitis 1 No Information OFFICE/OUTPA TIENT VISIT, [facility], [address], [place], [place], [phone] , [facility] [place] poss. UTI (chief complaint) Urinary system symptoms, other 1 No Information OFFICE/OUTPA TIENT VISIT, [facility], [address], [place], [place], [phone] , [facility] [place] abdominal pain since this morning (chief complaint) UTI (urinary tract infection) 1 Odunusi Dean. [address] [facility] [place] [place] [address], [place], [address], [place]. tel:[phone] OFFICE/OUTPA TIENT VISIT, [facility], [address], [place], [place], [id number] , [facility] [place] lt earache x 3dys on and off (chief complaint)l ow grade fever this am (chief complaint) Otitis media 2 1 Odunusi Dean. [address] [facility] [place] [address], [place], [address], [place]. tel:[phone] OFFICE/OUTPA TIENT VISIT, [facility], [address], [place], [place], [id number] , [facility] cough (chief complaint)f ever (chief complaint) Pneumonia Sep-1 [phone] Vandana Moran. [address] [employer], [place], [address], . tel:[phone] Family History Family Member Type Diagnosis Age [...] Record Payers Payer name Insurance type Covered constitution party ID Authormisha rizvi(s) [employer] [facility] [id number] Social History Type Description Quantity Date Captured [...]
[2024-11-17] MEDS: KETOROLAC 30 MG/ML VIAL (*BKC) IM (21:09)
[2024-11-17] MEDS: HYDROmorphone HCL INJ (*CRX) 1 MG/ML SYR IM (21:09)
[2024-11-17 22:17] VITALS: BP 121/93; PULSE 65; RESP 18; O2SAT 95
== END 2024-11-17 22:19 | disposition home or self-care (01) ==
PROVIDERS: Emergency Provider Family Medicine; PCP Nurse Practitioner Family
DX: N39.0 Urinary tract infection, site not specified (principal); R10.11 Right upper quadrant pain
CPT/HCPCS: 36415; 74176; 76705; 80053; 81001; 81025; 85025; 87086; 96372; 99284; J1171; J1885

== ENCOUNTER 2025-01-02 14:33 | Emergency (ER) | payer BC, SELFPAY ==
[2025-01-02 14:43] VITALS: BP 136/93; PULSE 95; RESP 16; TEMP 36.8; O2SAT 100
[2025-01-02 15:01] LABS: EDUAAPPEAR Cloudy; EDUABILI Negative (Negative); EDUABLOOD Negative (Negative); EDUACOLOR1 Dark; EDUAGLUCOSE Negative (Negative); EDUAKETONE Negative (Negative); EDUALEUKO Negative (Negative); EDUANITRATE Negative (Negative); EDUAPH 8.5; EDUAPROTEIN 2+ (Negative); EDUASPGRAVITY 1.015
--- NOTE | 2025-01-02 15:30 | ED_ITS ---
HPI - Abdominal Pain General Chief Complaint: Urogenital-Female Stated Complaint: Uti Symptoms Source: patient and RN notes reviewed Mode of arrival: ambulatory Limitations: no limitations History of Present Illness HPI narrative: 19-year-old female presents Express Care complaining of lower abdominal pain since yesterday. Patient reports having pressure in her bladder and thought she was having a urinary tract infection. Patient reports some pain with urination denies any burning sensation. Patient states the pain started her right lower abdomen and radiates into her back. Patient denies any nausea, vomiting, diarrhea. Patient denies any vaginal bleeding or discharge. Patient denies any fevers, chills, body aches. Significant past medical history includes asthma. Patient denies any abdominal surgeries. Related Data Home Medications ?Medication ?Instructions ?Recorded ?Confirmed ?Last Taken ?Type levalbuterol tartrate 45 inhalation 05/18/24 05/18/24 Unknown History mcg/actuation aerosol inhaler Allergies Allergy/AdvReac Type Severity Reaction Status Date / Time No Known Allergies Allergy Verified 01/02/25 14:54 Review of Systems Review of Systems: CONSTITUTIONAL: Denies fever, chills, or sweats. EYES: Denies visual changes, redness, or discharge. ENT: Denies rhinorrhea, congestion, sore throat, or otalgia. CARDIOVASCULAR: Denies chest pain, palpitations, or edema. RESPIRATORY: Denies cough or dyspnea. GASTROINTESTINAL: Positive for abdominal pain. Negative for nausea, vomiting, or diarrhea. GENITOURINARY: Positive for dysuria. Negative for hematuria, vaginal bleeding, vaginal discharge. SKIN: Denies rash or itching. MUSCULOSKELETAL: Denies back pain, joint pain, or myalgia. NEUROLOGIC: Denies headache, numbness, or weakness. PSYCHIATRIC: Denies anxiety or depression. All other systems reviewed are negative, except as documented in HPI. [facility] Past Medical History Medical History HSV-1 (herpes simplex virus 1) infection Asthma Allergies Family History Family History Mother Depression Father Depression Hypertension Sibling Depression Asthma Grandparent Hypertension Social History Social History Smoking status: Never smoker Tobacco type: e-cigarettes/vaping Alcohol intake: current Substance use: current Substance use type: marijuana Do You Feel Safe in your Home?: Yes Lack of Transportation: No Lack of Food: Never True Current Housing: I Have Housing Concerned About Future Housing: No Difficulty Paying Gas/Electric Bills: No Difficulty Paying for Meds: No Currently Unemployed: No Education: High School Diploma/GED Difficulty w/ Childcare or Family Care: No Living arrangements: with family Occupation/Education: unemployed Gender identity (if verbalized by the patient): Female Sexual Orientation (if Verbalized by the Patient): Bisexual Comments At the time of my signature, I reviewed and agree with the nursing past medical, surgical, social, and family history. There is no relevant family history pertinent to the patient complaint. Exam Narrative: GENERAL: This is a well-nourished, well-developed adult, in no apparent distress. They are non ill-appearing, nontoxic appearing. HEAD: normocephalic, atraumatic. EYES: Sclera clear/white. Conjunctiva normal. Vision is grossly intact. Extraocular movements intact EARS: External ears normal, NOSE: External nose normal THROAT: Mucous membranes moist, NECK: Neck supple, non-tender without lymphadenopathy, masses or thyromegaly. CARDIOVASCULAR: Regular rate and rhythm without murmurs, gallops, or rubs. RESPIRATORY: Clear to auscultation. Breath sounds equal bilaterally. No wheezes, rales, or rhonchi. GASTROINTESTINAL: Abdomen soft, tender to palpation the right lower quadrant and left lower quadrant. Tenderness is more prominent to the right lower quadrant, nondistended. Bowel sounds are active. No hepato-splenomegaly, or palpable masses. No guarding. No rebound tenderness, negative obturator sign. SKIN: warm, Dry, intact with no suspicious lesions or rash, good texture and turgor. NEURO: awake, alert, and oriented to person, place and time. There were no obvious focal neurologic abnormalities. EXTREMITIES: No joint tenderness, effusion, or edema noted. BACK: Nontender without deformity. No CVA tenderness. Course Course Emergency Course: Portions of this record may have been created with voice recognition software Level of Care: Express Care Visit Vital Signs Vital signs: Vital Signs Temperature 98.3 F 01/02/25 14:43 Pulse Rate 95 01/02/25 14:43 Respiratory Rate 16 01/02/25 14:43 Blood Pressure 136/93 H 01/02/25 14:43 Pulse Oximetry 100 01/02/25 14:43 Temperature 98.3 F 01/02/25 14:43 Pulse Rate 95 01/02/25 14:43 Respiratory Rate 16 01/02/25 14:43 Blood Pressure 136/93 H 01/02/25 14:43 Pulse Oximetry 100 01/02/25 14:43 Reviewed Transfer Transfered to: [facility] Transportation: Other (Private vehicle) Transfer rationale: Lower Abdominal pain, negative urine dipstick, higher level care Accepting physician: Dr. Stanford MDM - Abdominal Pain MDM Narrative Medical decision making narrative: Urine dipstick negative for any evidence of infection. Given the patient's pain and symptoms it is recommend the patient see higher level care and proceed to the emergency department. Patient is agreeable to go to [facility]. Report called over to [facility] and spoke with Dr. Stanford who is aware this patient has accepted the patient for transfer. Advised patient to remain NPO and proceed to the ER immediately. Patient will proceed by a private vehicle. Differential Diagnosis Differential diagnosis: Likely abdominal pain, acute appendicitis and other (Ovarian cyst) Lab Data Attestation: I reviewed the patient's lab results. Labs: Lab Results 01/02/25 Range/Units 14:59 POC Urine Color Dark POC Urine Clarity Cloudy POC Urine pH 8.5 POC Ur Specif [place] 1.015 POC Urine Protein 2+ (Negative) POC Ur Glucose (UA) Negative (Negative) POC Urine Ketones Negative (Negative) POC Urine Blood Negative (Negative) POC Urine Nitrite Negative (Negative) POC Urine Bilirubin Negative (Negative) POC Urine Urobilinogen 1.0 POC U Leukocyte Esteras Negative (Negative) Critical Care Time Critical Care Time Critical Care Time: No Discharge Plan Discharge Clinical Impression: Abdominal pain Qualifiers: Abdominal location: right lower quadrant Qualified Code(s): R10.31 - Right lower quadrant pain Patient Disposition: Acute Care Hospital Condition: Stable Patient Language: [place] Prescriptions: No Action levalbuterol tartrate 45 mcg/actuation HFA aerosol inhaler inhalation norethindrone-e.estradiol-iron [Junel FE 1.5/30 (28)] 1.5 mg-30 mcg (21)/75 mg (7) tablet 1 tablet PO DAILY Qty: 84 1RF Follow-up/Referrals: PHYSICIAN,REAL ESTATE APPRAISER [Primary Care Provider] - Time of Disposition: 15:30
== END 2025-01-02 15:35 | disposition short-term general hospital (02) ==
DX: R10.31 Right lower quadrant pain (principal); F17.290 Nicotine dependence, other tobacco product, uncomplicated; F12.90 Cannabis use, unspecified, uncomplicated; J45.909 Unspecified asthma, uncomplicated
CPT/HCPCS: 81003; 99213; G0463

== ENCOUNTER 2025-01-02 16:03 | Emergency (ER) | payer BC, SELFPAY ==
--- NOTE | ~2025-01-02 | US_ITS ---
EXAMINATION: US pelvic complete DATE: 01/02/2025 17:36 INDICATION: lower abd pain TECHNIQUE: Multiple transabdominal sonographic images of the pelvis were obtained. COMPARISON: 08/01/2024; CT abdomen pelvis 11/17/2024. FINDINGS: Uterus: 7.8 x 2.0 x 6.0 cm. Endometrial complex measures 2 mm. Right Ovary: 3.1 x 2.9 x 2.3 cm. Vascular flow is present. Left Ovary: 2.4 x 1.7 x 1.7 cm. Vascular flow is present. There is no free fluid in the pelvis. IMPRESSION: Normal transabdominal pelvic sonogram findings. Reviewed, dictated and finalized at location K.
--- NOTE | ~2025-01-02 | CT_ITS ---
EXAMINATION: CT abdomen pelvis w con DATE: 01/02/2025 20:24 INDICATION: RLQ abd pain TECHNIQUE: Computed tomography (CT) of the abdomen and pelvis was performed with 100 mL Omnipaque-350 intravenous contrast. Automated exposure control and iterative reconstruction technique were employe d. The dose-length product was 380.46 mGy-cm. COMPARISON: 11/17/2024. FINDINGS: Lower thorax: Unremarkable Liver: Normal. Biliary/Gallbladder: Gallbladder is normal. No bile duct dilation. Pancreas: No mass or duct dilation. Spleen: Normal. Adrenals:No mass. Kidneys: No suspicious mass, obstructing stone, or hydronephrosis. Right renal scarring. GI tract: Mild distal esophageal and gastric wall edema. Colonic submucosal fat as can be seen with c hronic IBD, obesity, chemotherapy treatment, and celiac disease. No small or large bowel dilation. N ormal appendix. Mesentery/Peritoneum: No ascites, mass, or free air. Retroperitoneum: No mass. Pelvis: Pelvic organs are within normal limits. Stable 1.5 cm simple cyst in the upper left adnexa ne ar but not contact with the left ovary, likely paraovarian cyst. Soft Tissues: Small uncomplicated fat-containing umbilical hernia. Bones: No acute osseous finding. 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 IMPRESSION: Mild esophagitis/gastritis. Otherwise, no acute abdominopelvic process detected. Reviewed, dictated and finalized at location K.
[2025-01-02 16:05] VITALS: BP 128/95; PULSE 98; RESP 18; TEMP 36.9; O2SAT 100
--- OUTSIDE RECORDS SUMMARY | 2025-01-02 16:05 | XMS_ITS | Clinical Summary ---
Author Organization [facility] Address [address] [place] [id number] Care Team Providers Care Manager Chinese Name Role Phone None, Provider MD Primary [...] 2023 COVID-19 Vaccine (2023-2 5 season) 2024 Meningococcal Vaccine Aged Out No gladys isael eligible based on patient's age to complete this topic Pneumococcal Vaccine: Pediat rics (0 to 5 Years) and At-Risk Patients (6 to 49 Years) Aged Out No longer eligible b ased on patient's age to complete this topic RSV Immunizations Under 20 Months Aged Out No longer eligible based on patient's age to complete this topic Insurance [facility] Care Teams Manager Chinese Relationship Specialty Start Date End Date None, Provider, PCP - General UNKNOWN PHYSICIAN SPECIALTY 02/26/23
--- OUTSIDE RECORDS SUMMARY | 2025-01-02 16:05 | XMS_ITS | Clinical Summary ---
Author Organization [facility] Address [address] [address] Phone Care Team Providers Care Airport Operations Manager Name Role Phone Yue Goss NP Primary Care Provider Allergies Active Allergy Reactions Criticality Noted Date [...] Encounters Date Type Department Care Team Description 12/01/2024 Telephone [facility] Family Medicine [facility] [facility] [address] [place] [address] Yue Goss NP 11/20/2024 Telephone [facility] Family Medicine [address] [facility] [address] [place] [address] Yue Goss NP 11/17/2024 Orders Only [facility] Health Information Management [address] [place] [address] Scanning, Provider from Last 3 Months Immunizations Immunization Administration [...] Comments Blood Pressure 118/72 09/15/2024 11:31 AM CONSULTANT DIETITIAN Pulse 79 09/15/2024 11:31 AM CONSULTANT DIETITIAN Temperature 36.6 C (97.9 F) 09/15/2024 11:31 AM CONSULTANT DIETITIAN Respiratory Rate - - Oxygen Saturation 98% 09/15/2024 11:31 AM CONSULTANT DIETITIAN Inhaled Oxygen Concentration - - Weight 77.1 kg (170 lb) 09/15/2024 11:31 AM CONSULTANT DIETITIAN Height 163.8 cm (5' 4.5 ) 09/15/2024 11:31 AM CS T Body Mass Index 28.73 09/15/2024 11:31 AM CONSULTANT DIETITIAN Plan of Treatment Health Maintenance Due Date Last Done Comments Chlamydia and Gonorrhea (GC/CT) Screening 2004 Hepatitis C Screening 2004 Pneumococcal vaccine <65 (1 of 1 - PPSV23) 2010 02/03/2006, 2004 Meningococcal B Vaccine (1 of 2 - Standard) 2020 Influenza Vaccine (Season Ended) 2025 07/29/2020, 08/09/2019, 10/05/2017, Additional history exists Depression Screening [...] Date/Time Associated Diagnosis Comments SCAN - RADIOLOGY/IMAGING 11/17/2024 from Last 3 Months Results * SCAN - RADIOLOGY/IMAGING (11/17/2024) Anatomical Region Laterality Modality Other us Provider Scanning Edited Result - Final from Last 3 Months Insurance [facility] Address: [place] [address] Care Teams Airport Operations Manager Relationship Specialty Start Date End Date Yue Goss NP [address] [place] [address] PCP - General Internal Medicine 04/19/23
--- OUTSIDE RECORDS SUMMARY | 2025-01-02 16:05 | XMS_ITS | Referral Summary ---
Author Organization [facility] Address [address] [facility] [address] [place] [address] Phone Care Team Providers Care Director Media Name Role Phone Yue Goss LIME KILN WORKER Primary Care Provider [phone] Encounters Date Type Department Care Team Description 12/01/2024 Telephone [facility] Family Medicine [address] [place] [address] [address] [place] [address] Yue Goss, LIME KILN WORKER 11/20/[address] [place] [address] Yue Goss, LIME KILN WORKER 11/17/2024 Orders Only [facility] Health Information Management [address] [place] [address] Scanning, Provider from Last 3 Months Allergies Active Allergy [...] Comments Blood Pressure 118/72 09/15/2024 11:31 AM COMPUTER INSTRUCTOR Pulse 79 09/15/2024 11:31 AM COMPUTER INSTRUCTOR Temperature 36.6 C (97.9 F) 09/15/2024 11:31 AM COMPUTER INSTRUCTOR Respiratory Rate - - Oxygen Saturation 98% 09/15/2024 11:31 AM COMPUTER INSTRUCTOR Inhaled Oxygen Concentration - - Weight 77.1 kg (170 lb) 09/15/2024 11:31 AM COMPUTER INSTRUCTOR Height 163.8 cm (5' 4.5 ) 09/15/2024 11:31 AM CS T Body Mass Index 28.73 09/15/2024 11:31 AM COMPUTER INSTRUCTOR Plan of Treatment Not on file Procedures Procedure Name Priority Date/Time Associated Diagnosis Comments SCAN - RADIOLOGY/IMAGING 11/17/2024 from Last 3 Months Results * SCAN - RADIOLOGY/IMAGING (11/17/2024) Anatomical Region Laterality Modality Other us Provider Scanning Edited Result - Final from Last 3 Months Insurance [facility] [place] [phone] [facility] [employer] Care Teams Director Media Relationship Specialty Start Date End Date Yue Goss NP [address] [place] [address] [address] [place] [address] PCP - General Internal Medicine 04/19/23
--- NOTE | 2025-01-02 17:03 | ED_ITS ---
HPI - Abdominal Pain General Chief Complaint: Abdominal Pain <SUZE Camacho Last Filed: 01/02/25 17:04> Stated Complaint: sent from abdominal pain <SUZE Camacho Last Filed: 01/02/25 17:04> Time Seen by Provider: 01/02/25 18:29 <Tory Quick PA-C - Last Filed: 01/02/25 17:04> Focused HPI: 19-year-old female presents to the emergency department for right lower quadrant abdominal pain for the past day. Patient reports associated thickened discolored vaginal discharge, dysuria and flank pain. She went to urgent care and had a urinalysis performed which was unremarkable and was sent to the ED for further evaluation. She denies concern for STDs, hematuria, vomiting, fever, diarrhea. GENERAL: Well-appearing, well-nourished, and in no acute distress. HEAD: Normocephalic, atraumatic. CHEST: Clear to auscultation. ?No respiratory distress. ABD: Tenderness to the right lower quadrant with no rebound, guarding or rigidity. No CVA tenderness. HEART: Regular rate and rhythm.? NEURO: ?Alert and oriented x3. Patient screened in triage and initial orders placed.? ?Additional care and disposition to be based upon?diagnostic testing and treatment. <Tory Quick PA-C - Last Filed: 01/02/25 17:04> Focused HPI: 19-year-old female presents to the emergency department for right lower quadrant abdominal pain for the past day. Patient reports associated thickened discolored vaginal discharge, dysuria and flank pain. She went to urgent care and had a urinalysis performed which was unremarkable and was sent to the ED for further evaluation. She denies concern for STDs, hematuria, vomiting, fever, diarrhea. GENERAL: Well-appearing, well-nourished, and in no acute distress. HEAD: Normocephalic, atraumatic. CHEST: Clear to auscultation. ?No respiratory distress. ABD: Tenderness to the right lower quadrant with no rebound, guarding or rigidity. No CVA tenderness. HEART: Regular rate and rhythm.? NEURO: ?Alert and oriented x3. Patient screened in triage and initial orders placed.? ?Additional care and disposition to be based upon?diagnostic testing and treatment. <Camryn Hassan PA-C - Last Filed: 01/02/25 21:38> Source: patient <Camryn Hassan PA-C - Last Filed: 01/02/25 21:38> Mode of arrival: ambulatory <Camryn Hassan PA-C - Last Filed: 01/02/25 21:38> Limitations: no limitations <Camryn Hassan PA-C - Last Filed: 01/02/25 21:38> History of Present Illness HPI narrative: Agree with above HPI. She reports concern for UTI. Does report history of frequent UTIs and kidney infections. Denies hematuria. <Camryn Hassan PA-C - Last Filed: 01/02/25 21:38> Related Data Home Medications: Home Medications ?Medication ?Instructions ?Recorded ?Confirmed ?Last Taken ?Type levalbuterol tartrate 45 inhalation 05/18/24 05/18/24 Unknown History mcg/actuation aerosol inhaler <Tory Quick PA-C - Last Filed: 01/02/25 17:04> Allergies/Adverse Reactions: Allergies Allergy/AdvReac Type Severity Reaction Status Date / Time No Known Allergies Allergy Verified 01/02/25 16:07 <Tory Quick PA-C - Last Filed: 01/02/25 17:04> Review of Systems 2 Review of Systems: All systems reviewed & are unremarkable except as noted in HPI. <Camryn Hassan PA-C - Last Filed: 01/02/25 21:38> All systems reviewed & are unremarkable except as noted in HPI and below < Camryn Hassan PA-C - Last Filed: 01/02/25 21:38> [facility] Past Medical History Medical History: Medical History HSV-1 (herpes simplex virus 1) infection Asthma Allergies <Tory Quick PA-C - Last Filed: 01/02/25 17:04> Family History Family History: Family History Mother Depression Father Depression Hypertension Sibling Depression Asthma Grandparent Hypertension <Tory Quick PA-C - Last Filed: 01/02/25 17:04> Social History Social History: Social History Smoking status: Never smoker Tobacco type: e-cigarettes/vaping Alcohol intake: current Substance use: current Substance use type: marijuana Do You Feel Safe in your Home?: Yes Lack of Transportation: No Lack of Food: Never True Current Housing: I Have Housing Concerned About Future Housing: No Difficulty Paying Gas/Electric Bills: No Difficulty Paying for Meds: No Currently Unemployed: No Education: High School Diploma/GED Difficulty w/ Childcare or Family Care: No Living arrangements: with family Occupation/Education: unemployed Gender identity (if verbalized by the patient): Female Sexual Orientation (if Verbalized by the Patient): Bisexual <Tory Quick PA-C - Last Filed: 01/02/25 17:04> Exam 2 Narrative: GENERAL: Well appearing, well-nourished, non-toxic, in no acute distress. HEAD: Normocephalic, atraumatic. RESPIRATORY: Airway patent, respirations nonlabored. Clear to auscultation bilaterally, no rales, rhonchi, wheezing. CARDIOVASCULAR: Regular rate and rhythm without murmurs, rubs, or gallops. ABDOMINAL: Soft, mild tenderness to palpation throughout suprapubic region, right lower quadrant, nondistended. Normoactive BS. MUSCULOSKELETAL: Moves all extremities. No gross deformities. SKIN: Warm, dry, normal color. NEURO: A&O X3. Speech clear. PSYCHIATRIC: Appropriate mood and affect. Normal interaction. <Camryn Hassan PA-C - Last Filed: 01/02/25 21:38> Course Vital Signs Vital signs: Vital Signs Temperature 98.4 F 01/02/25 16:05 Pulse Rate 98 01/02/25 16:05 Respiratory Rate 18 01/02/25 16:05 Blood Pressure 128/95 H 01/02/25 16:05 Pulse Oximetry 100 01/02/25 16:05 Oxygen Delivery Room Air 01/02/25 16:05 Temperature 98.4 F 01/02/25 16:05 Pulse Rate 98 01/02/25 16:05 Respiratory Rate 18 01/02/25 16:05 Blood Pressure 128/95 H 01/02/25 16:05 Pulse Oximetry 100 01/02/25 16:05 Oxygen Delivery Room Air 01/02/25 16:05 <Tory Quick PA-C - Last Filed: 01/02/25 17:04> Vital Signs Temperature 98.4 F 01/02/25 16:05 Pulse Rate 98 01/02/25 16:05 Respiratory Rate 18 01/02/25 16:05 Blood Pressure 128/95 H 01/02/25 16:05 Pulse Oximetry 100 01/02/25 16:05 Oxygen Delivery Room Air 01/02/25 16:05 Temperature 98.4 F 01/02/25 16:05 Pulse Rate 98 01/02/25 16:05 Respiratory Rate 18 01/02/25 16:05 Blood Pressure 128/95 H 01/02/25 16:05 Pulse Oximetry 100 01/02/25 16:05 Oxygen Delivery Room Air 01/02/25 16:05 <Camryn Hassan PA-C - Last Filed: 01/02/25 21:38> MDM - Abdominal Pain MDM Narrative Medical decision making narrative: Patient presented to ED with right lower quadrant, right flank pain, UTI symptoms since yesterday. Does report history of frequent UTIs. Vital signs are stable upon arrival. Patient in no acute distress upon my evaluation. Laboratory studies are reassuring. No leukocytosis. Stable kidney function. Stable electrolytes. Normal LFTs and lipase. UA with possible infection, 1+ leuk esterase, 6-10 WBC, 2+ urine bacteria. Sent for culture. Given that patient is acutely symptomatic, will treat for this. Started on Keflex in the ED. Urine is negative. Pelvic ultrasound was obtained and unremarkable. No evidence of torsion. CT scan of abdomen/pelvis was obtained and showing mild esophagitis/gastritis. Otherwise negative. Discussed with patient. She does report intermittent epigastric pain. Denies epigastric pain currently. Discussed OTC Pepcid for home use. Will also prescribe Pyridium for UTI symptoms, recommended close follow-up with PCP for further evaluation. Patient in agreement with plan, feels comfortable going home. Discharged in stable condition. <Camryn Hassan PA-C - Last Filed: 01/02/25 21:38> Medical Records Attestation: I reviewed the patient's medical records. <Camryn Hassan PA-C - Last Filed: 01/02/25 21:38> Lab Data Attestation: I reviewed the patient's lab results. <Camryn Hassan PA-C - Last Filed: 01/02/25 21:38> Result diagrams: 01/02/25 17:45 01/02/25 17:45 <Tory Quick PA-C - Last Filed: 01/02/25 17:04> Labs: Lab Results 01/02/25 01/02/25 01/02/25 Range/Units 17:45 19:25 19:31 WBC 7.2 (4.5-10.0) K/mm3 RBC 4.71 (4.2-5.4) M/mm3 Hgb 14.5 (12.0-15.0) g/dL Hct 42.6 (37.0-47.0) % MCV 90.4 (80-100) fl MCH 30.8 (26-34) pg MCHC 34.0 (32-36) g/dl RDW 12.7 (11.5-14.5) % Plt Count 380 H (150-375) k/mm3 MPV 10.6 H (7.4-10.4) fl Immature Gran % (Auto) 0.1 (0-0.5) % Neut % (Auto) 74.8 H (45.5-73.1) % Lymph % (Auto) 18.6 (18.3-44.2) % [place] % (Auto) 5.3 (2.6-8.5) % Eos % (Auto) 0.6 (0-4.4) % Baso % (Auto) 0.6 (0.2-1.2) % Lymph # (Auto) 1.34 (0.9-3.2) K/mm3 [place] # (Auto) 0.4 (0.1-0.6) K/mm3 Eos # (Auto) 0.0 (0-0.3) K/mm3 Baso # (Auto) 0.0 (0.0-0.1) K/mm3 Abs Immat Gran (auto) 0.01 (0.00-0.031) K/mm3 Absolute Neuts (auto) 5.4 (1.3-6.7) K/mm3 Absolute Nucleated RBC 0.000 (0.0-0.012) K/mm3 Nucleated RBC % 0.0 (0.0-0.2) % Sodium 141 (137-145) mmol/L Potassium 3.5 (3.4-5.0) mmol/L Chloride 106 (98-107) mmol/L Carbon Dioxide 23 (22-30) mmol/L Anion Gap 12 (4-12) mmol/L BUN 12 (7-17) mg/dL Creatinine 0.58 L (0.7-1.0) mg/dL Estim Creat Clear Calc 134 ml/min Estimated GFR > 60 (59 - ) Glucose 83 (65-110) mg/dL Calcium 9.3 (8.4-10.2) mg/dL Total Bilirubin 0.6 (0.2-1.3) mg/dL AST 35 (14-36) U/L ALT 23 (6-35) U/L Alkaline Phosphatase 124 (38-126) U/L Total Protein 9.0 H (6.3-8.2) g/dL Albumin 4.7 (3.5-5.1) g/dL Lipase 40 (23-300) U/L Urine Color Dark yellow (Yellow) Urine Appearance Clear (Clear) Urine pH 8.5 (5.0-9.0) Ur Specific Marceline 1.031 (1.001-1.035) Urine Protein 1+ H (Negative) mg/dL Urine Glucose (UA) Negative (Negative) mg/dL Urine Ketones 1+ H (Negative) mg/dL Ur Blood (Man) Negative (Negative) Urine Nitrate Negative (Negative) Urine Bilirubin 1+ H (Negative) Urine Urobilinogen 1.0 (<2.0) mg/dL Add Ur Microanalysis Reviewed Leukocyte Esterase Rfl 1+ H (Negative) BAHMAN/UL Urine RBC 3-5 H (0-2) /hpf Urine WBC 6-10 H (0-3) /hpf Ur Squamous Epith Cells Moderate (Few) /hpf Urine Bacteria 2+ H /hpf Urine Casts 0-2 Urine Mucus Present /lpf POC Urine HCG, Qual Negative (Negative) C. trachomatis (PCR) Pending N. gonorrhoeae (PCR) Pending T. vaginalis (PCR) Not detected (NOT DETECTE) <Tory Quick PA-C - Last Filed: 01/02/25 17:04> Lab Results 01/02/25 01/02/25 01/02/25 Range/Units 17:45 19:25 19:31 WBC 7.2 (4.5-10.0) K/mm3 RBC 4.71 (4.2-5.4) M/mm3 Hgb 14.5 (12.0-15.0) g/dL Hct 42.6 (37.0-47.0) % MCV 90.4 (80-100) fl MCH 30.8 (26-34) pg MCHC 34.0 (32-36) g/dl RDW 12.7 (11.5-14.5) % Plt Count 380 H (150-375) k/mm3 MPV 10.6 H (7.4-10.4) fl Immature Gran % (Auto) 0.1 (0-0.5) % Neut % (Auto) 74.8 H (45.5-73.1) % Lymph % (Auto) 18.6 (18.3-44.2) % [place] % (Auto) 5.3 (2.6-8.5) % Eos % (Auto) 0.6 (0-4.4) % Baso % (Auto) 0.6 (0.2-1.2) % Lymph # (Auto) 1.34 (0.9-3.2) K/mm3 [place] # (Auto) 0.4 (0.1-0.6) K/mm3 Eos # (Auto) 0.0 (0-0.3) K/mm3 Baso # (Auto) 0.0 (0.0-0.1) K/mm3 Abs Immat Gran (auto) 0.01 (0.00-0.031) K/mm3 Absolute Neuts (auto) 5.4 (1.3-6.7) K/mm3 Absolute Nucleated RBC 0.000 (0.0-0.012) K/mm3 Nucleated RBC % 0.0 (0.0-0.2) % Sodium 141 (137-145) mmol/L Potassium 3.5 (3.4-5.0) mmol/L Chloride 106 (98-107) mmol/L Carbon Dioxide 23 (22-30) mmol/L Anion Gap 12 (4-12) mmol/L BUN 12 (7-17) mg/dL Creatinine 0.58 L (0.7-1.0) mg/dL Estim Creat Clear Calc 134 ml/min Estimated GFR > 60 (59 - ) Glucose 83 (65-110) mg/dL Calcium 9.3 (8.4-10.2) mg/dL Total Bilirubin 0.6 (0.2-1.3) mg/dL AST 35 (14-36) U/L ALT 23 (6-35) U/L Alkaline Phosphatase 124 (38-126) U/L Total Protein 9.0 H (6.3-8.2) g/dL Albumin 4.7 (3.5-5.1) g/dL Lipase 40 (23-300) U/L Urine Color Dark yellow (Yellow) Urine Appearance Clear (Clear) Urine pH 8.5 (5.0-9.0) Ur Specific Marceline 1.031 (1.001-1.035) Urine Protein 1+ H (Negative) mg/dL Urine Glucose (UA) Negative (Negative) mg/dL Urine Ketones 1+ H (Negative) mg/dL Ur Blood (Man) Negative (Negative) Urine Nitrate Negative (Negative) Urine Bilirubin 1+ H (Negative) Urine Urobilinogen 1.0 (<2.0) mg/dL Add Ur Microanalysis Reviewed Leukocyte Esterase Rfl 1+ H (Negative) BAHMAN/UL Urine RBC 3-5 H (0-2) /hpf Urine WBC 6-10 H (0-3) /hpf Ur Squamous Epith Cells Moderate (Few) /hpf Urine Bacteria 2+ H /hpf Urine Casts 0-2 Urine Mucus Present /lpf POC Urine HCG, Qual Negative (Negative) C. trachomatis (PCR) Pending N. gonorrhoeae (PCR) Pending T. vaginalis (PCR) Not detected (NOT DETECTE) <Camryn Hassan PA-C - Last Filed: 01/02/25 21:38> Imaging Data Attestation: I personally reviewed and interpreted this imaging study as follows: < RANDAL HenaoC - Last Filed: 01/02/25 21:38> Radiologist's impression: ITS Impressions Pelvis Ultrasound 01/02/25 17:37 IMPRESSION: Normal transabdominal pelvic sonogram findings. Abdomen/Pelvis CT 01/02/25 20:24 IMPRESSION: Mild esophagitis/gastritis. Otherwise, no acute abdominopelvic process detected. <SUZE Camacho Last Filed: 01/02/25 17:04> ITS Impressions Pelvis Ultrasound 01/02/25 17:37 IMPRESSION: Normal transabdominal pelvic sonogram findings. Abdomen/Pelvis CT 01/02/25 20:24 IMPRESSION: Mild esophagitis/gastritis. Otherwise, no acute abdominopelvic process detected. <SUZE Henao Last Filed: 01/02/25 21:38> Discharge Plan Discharge Clinical Impression: Right lower quadrant abdominal pain UTI (urinary tract infection) Qualifiers: Urinary tract infection type: acute cystitis Hematuria presence: with hematuria Qualified Code(s): N30.01 - Acute cystitis with hematuria <SUZE Camacho Last Filed: 01/02/25 17:04> Patient Disposition: Home <SUZE Camacho Last Filed: 01/02/25 17:04> Condition: Stable <SUZE Camacho Last Filed: 01/02/25 17:04> Instructions: Antibiotic Form, Urinary Tract Infection in Women (ED), Diet for Stomach Ulcers and Gastritis (ED) <SUZE Camacho Last Filed: 01/02/25 17:04> Additional Instructions: Take antibiotics as prescribed for urinary tract infection. Stay well hydrated. Take Pyridium for symptom relief. Continue Tylenol and ibuprofen as needed for pain. Follow-up with your primary care doctor for further evaluation urine culture results. Return to the ED if you experience worsening or severe pain, unable to urinate, unable to keep down food or drink, persistent fevers, or any other symptoms of concern. <SUZE Camacho Last Filed: 01/02/25 17:04> Patient Language: Malian <SUZE Camacho Last Filed: 01/02/25 17:04> Prescriptions: New cephalexin 500 mg capsule 500 mg PO Q6H 7 Days Qty: 28 0RF phenazopyridine [Pyridium] 200 mg tablet 200 mg PO TID Qty: 6 0RF No Action levalbuterol tartrate 45 mcg/actuation HFA aerosol inhaler inhalation norethindrone-e.estradiol-iron [Junel FE 1.5/30 (28)] 1.5 mg-30 mcg (21)/75 mg (7) tablet 1 tablet PO DAILY Qty: 84 1RF <Tory Quick PA-C - Last Filed: 01/02/25 17:04> Follow-up/Referrals: PHYSICIAN,DIRECTIONAL DRILLER [Non-Staff] - Jamari Acuna MD [Physician] - (PRIMARY CARE) <Tory Quick PA-C - Last Filed: 01/02/25 17:04> Stand Alone Forms: Work/School Release IP <Tory Quick PA-C - Last Filed: 01/02/25 17:04> Time of Disposition: 21:32 <Tory Quick PA-C - Last Filed: 01/02/25 17:04> 21:32 <Camryn Hassan PA-C - Last Filed: 01/02/25 21:38>
--- NOTE | 2025-01-02 17:50 | PC.NURSE ---
PT UNABLE TO URINATE FOR URINE TESTING AND PREG TEST WHILE IN TRIAGE
[2025-01-02 17:51] LABS: Basophils Percent Auto 0.6 % (0.2-1.2); Eosinophils Percent Auto 0.6 % (0-4.4); Hematocrit 42.6 % (37.0-47.0); Hemoglobin 14.5 g/dL (12.0-15.0); Immature Granulocyte Absolute 0.01 K/mm3 (0.00-0.031); Immature Granulocyte Percent A 0.1 % (0-0.5); Lymphocytes Absolute Auto 1.34 K/mm3 (0.9-3.2); Lymphocytes Percent Auto 18.6 % (18.3-44.2); Mean Corpuscular Hemoglobin 30.8 pg (26-34); Mean Corpuscular Volume 90.4 fl (80-100); Mean Platelet Volume 10.6 fl (7.4-10.4); Monocytes Absolute Auto 0.4 K/mm3 (0.1-0.6); Monocytes Percent Auto 5.3 % (2.6-8.5); Neutrophils Absolute Auto 5.4 K/mm3 (1.3-6.7); Neutrophils Percent Auto 74.8 % (45.5-73.1); Platelet Count Result 380 k/mm3 (150-375); Red Blood Count 4.71 M/mm3 (4.2-5.4); Red Cell Distribution Width 12.7 % (11.5-14.5); White Blood Count 7.2 K/mm3 (4.5-10.0)
[2025-01-02 18:01] LABS: Alanine Aminotransferase 23 U/L (6-35); Albumin Level 4.7 g/dL (3.5-5.1); Alkaline Phosphatase 124 U/L (38-126); Anion Gap 12 mmol/L (4-12); Aspartate Amino Transferase 35 U/L (14-36); Bilirubin,Total 0.6 mg/dL (0.2-1.3); Blood Urea Nitrogen 12 mg/dL (7-17); Calcium 9.3 mg/dL (8.4-10.2); Carbon Dioxide 23 mmol/L (22-30); Chloride 106 mmol/L (98-107); Estimated CRCL calculation 134 ml/min; Estimated Glomerular Filt Rate > 60; Glucose 83 mg/dL (65-110); Lipase 40 U/L (23-300); Potassium 3.5 mmol/L (3.4-5.0); Sodium 141 mmol/L (137-145)
--- OUTSIDE RECORDS SUMMARY | 2025-01-02 18:52 | XMS_ITS | Clinical Summary ---
Author Organization [facility] Address [address] [address] Phone Care Team Providers Care Fur Tailor Name Role Phone Yue Goss NP Primary Care Provider [phone] Allergies Active Allergy Reactions Criticality Noted Date [...] Type Department Care Team Description 12/01/2024 Telephone [facility] [facility] [address] [place] [address] Yeu Goss NP 11/20/2024 Telephone [facility] [address] [facility] [address] [place] [address] Yue Goss NP 11/17/2024 Orders Only [facility] Health Information Management [address] [place] [address] Scanning, Provider from Last 3 Months Immunizations [...] Comments Blood Pressure 118/72 09/15/2024 11:31 AM GALVANIZER Pulse 79 09/15/2024 11:31 AM GALVANIZER Temperature 36.6 C (97.9 F) 09/15/2024 11:31 AM GALVANIZER Respiratory Rate - - Oxygen Saturation 98% 09/15/2024 11:31 AM GALVANIZER Inhaled Oxygen Concentration - - Weight 77.1 kg (170 lb) 09/15/2024 11:31 AM GALVANIZER Height 163.8 cm (5' 4.5 ) 09/15/2024 11:31 AM CS T Body Mass Index 28.73 09/15/2024 11:31 AM GALVANIZER Plan of Treatment Health Maintenance Due Date [...] - Final from Last 3 Months Insurance [facility] Address: [place] [address] Care Teams Fur Tailor Relationship Specialty Start Date End Date Yue Goss NP [address] [place] [address] PCP - General Internal Medicine 04/19/23
--- OUTSIDE RECORDS SUMMARY | 2025-01-02 18:52 | XMS_ITS | Referral Summary ---
Author Organization [facility] Address [address] [facility] [address] [place] [address] Phone Care Team Providers Care Fur Examiner Name Role Phone Yue Goss TRACTOR DRIVER TEAMSTER Primary Care Provider [phone] Encounters Date Type Department Care Team Description 12/01/2024 Telephone [facility] [address] [place] [address] [address] [place] [address] Yue Goss, TRACTOR DRIVER TEAMSTER 11/20/[address] [place] [address] Yeu Goss, TRACTOR DRIVER TEAMSTER 11/17/2024 Orders Only [facility] Health Information Management [address] [place] [address] Scanning, Provider from Last 3 Months Allergies [...] Comments Blood Pressure 118/72 09/15/2024 11:31 AM CONE CLASSIFIER TENDER Pulse 79 09/15/2024 11:31 AM CONE CLASSIFIER TENDER Temperature 36.6 C (97.9 F) 09/15/2024 11:31 AM CONE CLASSIFIER TENDER Respiratory Rate - - Oxygen Saturation 98% 09/15/2024 11:31 AM CONE CLASSIFIER TENDER Inhaled Oxygen Concentration - - Weight 77.1 kg (170 lb) 09/15/2024 11:31 AM CONE CLASSIFIER TENDER Height 163.8 cm (5' 4.5 ) 09/15/2024 11:31 AM CS T Body Mass Index 28.73 09/15/2024 11:31 AM CONE CLASSIFIER TENDER Plan of Treatment Not on file Procedures Procedure Name Priority Date/Time Associated Diagnosis Comments SCAN - RADIOLOGY/IMAGING 11/17/2024 from Last 3 Months Results * SCAN - RADIOLOGY/IMAGING (11/17/2024) Anatomical Region Laterality Modality Other us Provider Scanning Edited Result - Final from Last 3 Months Insurance [facility] [place] [id number] [facility] [employer] Care Teams Fur Examiner Relationship Specialty Start Date End Date Yue Goss NP [address] [place] [address] [address] [place] [address] PCP - General Internal Medicine 04/19/23
--- OUTSIDE RECORDS SUMMARY | 2025-01-02 18:52 | XMS_ITS | Clinical Summary ---
Author Organization [facility] Address [address] [place] [id number] Care Team Providers Care Bone Drier Operator Name Role Phone None, Provider MD Primary [...] patient's age to complete this topic Insurance [facility] Care Teams Bone Drier Operator Relationship Specialty Start Date End Date None, Provider, PCP - General UNKNOWN PHYSICIAN SPECIALTY 02/26/23
[2025-01-02] MEDS: ACETAMINOPHEN 500 MG TABLET 1000 MG PO (19:25)
[2025-01-02 19:34] LABS: BEDSIDEPREGUCG Negative (Negative)
[2025-01-02 19:46] LABS: Add Urine Microscopic? YES; Appearance Urine Clear (Clear); Bacteria Urine 2+ /hpf; Bilirubin Urine 1+ (Negative); Blood Urine Negative (Negative); Color Urine Dark Yellow (Yellow); Glucose Urine UA Negative (Negative); Ketones Urine 1+ mg/dL (Negative); Leukocyte Esterase Ur 1+ LEU/UL (Negative); Mucus Urine Present /lpf; Need Manual Microscopic Reviewed; Nitrate Urine Negative (Negative); Non Pathogenic Casts 0-2; Protein Urine 1+ mg/dL (Negative); Specific Grav Ur 1.031 (1.001-1.035); Squamous Epithelial Cell Urine Moderate /hpf (Few); pH Urine 8.5 (5.0-9.0)
[2025-01-02] MEDS: KETOROLAC 30 MG/ML VIAL (*BKC) IV PUSH (21:10)
[2025-01-02] MEDS: CEPHALEXIN 500 MG CAPSULE PO (21:10)
[2025-01-02 21:32] LABS: Trichomonas Vag PCR NOT DETECTED (NOT DETECTE)
[2025-01-02 21:50] VITALS: BP 120/69; PULSE 92; RESP 17; TEMP 36.8; O2SAT 100
[2025-01-02 21:57] LABS: Chlamydia trachomatis NOT DETECTED (NOT DETECTE); Neisseria gonorrhoeae PCR NOT DETECTED (NOT DETECTE)
== END 2025-01-02 21:52 | disposition home or self-care (01) ==
PROVIDERS: Physician Assistant; Emergency Provider Physician Assistant
DX: N30.01 Acute cystitis with hematuria (principal); R10.31 Right lower quadrant pain; F17.290 Nicotine dependence, other tobacco product, uncomplicated; J45.909 Unspecified asthma, uncomplicated
CPT/HCPCS: 36415; 74177; 76856; 80053; 81001; 81025; 83690; 85025; 87491; 87591; 87661; 96374; 99284; A9270; J1885; Q9967

== ENCOUNTER 2025-01-20 19:08 | Emergency (ER) | payer BC, SELFPAY ==
--- NOTE | 2025-01-20 19:09 | ED.SKABFB ---
HPI - Skin/Abscess/Foreign Bdy General Chief complaint: Skin/Abscess/Foreign Body Stated complaint: RASH Time Seen by Provider: 01/20/25 19:16 Source: patient, RN notes reviewed and old records reviewed Mode of arrival: ambulatory Limitations: no limitations History of Present Illness HPI narrative: 19-year-old female presents to the [facility] with complaints of a rash that started 3 days ago. patient reports an itchy rash to the neck and forehead back of neck. Upper chest. Denies any new creams ointments lotions detergents. No treatment prior to arrival. Patient also reports a sore throat that started yesterday Related Data Home Medications ?Medication ?Instructions ?Recorded ?Confirmed ?Last Taken ?Type levalbuterol tartrate 45 inhalation 05/18/24 05/18/24 Unknown History mcg/actuation aerosol inhaler Allergies Allergy/AdvReac Type Severity Reaction Status Date / Time No Known Allergies Allergy Verified 01/20/25 19:16 Review of Systems Review of Systems: All systems reviewed & are unremarkable except as noted in HPI and below Constitutional: Constitutional: Reports no additional constitutional complaints ENT: Reports as per HPI and Reports sore throat Cardiovascular: Cardiovascular: Reports no additional cardiovascular complaints, Denies chest pain and Denies dyspnea Respiratory: Respiratory: Reports no additional respiratory complaints, Denies chest congestion, Denies cough and Denies dyspnea Musculoskeletal: Musculoskeletal: Reports no additional musculoskeletal complaints Integumentary/Breasts: Skin/Breast: Reports as per HPI PMFSH Past Medical History Medical History HSV-1 (herpes simplex virus 1) infection Asthma Allergies Family History Family History Mother Depression Father Depression Hypertension Sibling Depression Asthma Grandparent Hypertension Social History Social History Smoking status: Never smoker Tobacco type: e-cigarettes/vaping Alcohol intake: current Substance use: current Substance use type: marijuana Do You Feel Safe in your Home?: Yes Lack of Transportation: No Lack of Food: Never True Current Housing: I Have Housing Concerned About Future Housing: No Difficulty Paying Gas/Electric Bills: No Difficulty Paying for Meds: No Currently Unemployed: No Education: High School Diploma/GED Difficulty w/ Childcare or Family Care: No Living arrangements: with family Occupation/Education: unemployed Gender identity (if verbalized by the patient): Female Sexual Orientation (if Verbalized by the Patient): Bisexual Comments At the time of my signature, I reviewed and agree with the nursing past medical, surgical, social, and family history. There is no relevant family history pertinent to the patient complaint. Exam Const: General: cooperative, healthy appearing, comfortable, no acute distress, well developed, alert and well nourished Nutritional Appearance: well nourished Orientation/consciousness: patient oriented x3 Limitations: no limitations HENMT: Head: normal to inspection Ears: hearing grossly normal bilaterally, external ears normal, TM's normal bilaterally, EAC's normal, mastoids normal and no periauricular adenopathy Face and sinus: normal facial exam Mouth: Yes Normal oral and palatal mucosa present, Yes lip normal, Yes tongue normal and Yes moist mucous membranes Throat: posterior oropharynx normal, uvula midline and no uvular edema Eyes: General: appearance normal, both eyes and all related structures Alignment and Position: alignment normal Neck: Neck: normal visual inspection, full ROM, no lymphadenopathy and no meningeal signs Chest: Chest palpation & inspection: normal inspection of the chest Resp: Effort & Inspection: normal respiratory effort and able to speak in complete sentences Auscultation: clear to auscultation bilaterally, no crackles, no rales, no rhonchi and no wheezes Cardio: Rate: regular rate Skin: General skin exam: normal color and no rashes or lesions noted Rashes: rashes noted (Fine red rash to the neck, upper chest back of neck and forehead. ) and other Neuro: General: patient oriented x3, gait normal, moves all extremities and no meningeal signs Cognition (Neuro): normal cognition Speech: normal speech Gait exam (Neuro): Normal gait present Extrem: General: normal to inspection, full ROM, capillary refill normal and normal gait Psych: Appearance: grossly normal and well kempt Mental Status: mental status grossly normal Speech and movement: Normal speech and movement present and Clear speech present Affect: normal affect Attitude: cooperative Course Course Level of Care: Express Care Visit Vital Signs Vital signs: Vital Signs Temperature 97.6 F 01/20/25 19:16 Pulse Rate 95 01/20/25 19:16 Respiratory Rate 16 01/20/25 19:16 Blood Pressure 124/97 H 01/20/25 19:16 Pulse Oximetry 99 01/20/25 19:16 Temperature 97.6 F 01/20/25 19:16 Pulse Rate 95 01/20/25 19:16 Respiratory Rate 16 01/20/25 19:16 Blood Pressure 124/97 H 01/20/25 19:16 Pulse Oximetry 99 01/20/25 19:16 Reviewed MDM - Skin/Abscess/Foreign Bdy MDM Narrative Medical decision making narrative: Patient sitting in exam room. Patient is nontoxic, vitals stable. Patient presents with a fine rash. Strep test negative. Patient appropriate for outpatient treatment of rash. Discharge instructions reviewed with patient, as well as provided in writing per nursing staff. The instructions also include specific and strict return/GO TO THE ER as well as f/u information. All questions have been answered, and the patient deny any further questions with discharge and discharge plan. Some parts of this dictation were generated by voice recognition software and may contain typographical and/or grammatical inaccuracies. Differential Diagnosis Differential diagnosis: Likely abscess of skin or subcutaneous tissue, urticaria, cellulitis, eczema and impetigo Lab Data Labs: Lab Results 01/20/25 Range/Units 19:32 POC Grp A Strep Screen Negative (Negative) Reviewed Critical Care Time Critical Care Time Critical Care Time: No Discharge Plan Discharge Clinical Impression: Urticaria Patient Disposition: Home Condition: Stable Instructions: Antibiotic Form, Urticaria (ED) Additional Instructions: The most important part of your care is follow up with Primary care provider. Take Benadryl 25-50 mg every 8 hours for itching Take Zyrtec every day Take Pepcid 20mg daily for 7 days Take the steroids starting when you get them and then take every morning. You can also choose to start taking them 1st thing in the morning. Applying hydrocortisone cream as well as a good moisturizing lotion will help with the itching. Avoid hot showers, Take cool showers. Hot showers will make rashes worse Apply cool compresses every 2-3 hours for 15 minutes Go to the ER for new or worsening symptoms such as shortness of breath. Patient Language: Ukrainian Prescriptions: New prednisone 20 mg tablet See Rx Instructions .Route .COMPLEX Qty: 9 0RF Rx Instructions: Take 40 mg daily for 3 days, 20 mg daily for 3 days No Action levalbuterol tartrate 45 mcg/actuation HFA aerosol inhaler inhalation Follow-up/Referrals: Wolfgang,KAUSHIK Turner [Primary Care Provider] - 1 Week (express care follow up ) Stand Alone Forms: Work/School Release IP Time of Disposition: 19:32
[2025-01-20 19:16] VITALS: BP 124/97; PULSE 95; RESP 16; TEMP 36.4; O2SAT 99
[2025-01-20 19:34] LABS: EDSTREPNEGPOS1 Negative (Negative)
== END 2025-01-20 19:38 | disposition home or self-care (01) ==
PROVIDERS: Emergency Provider Nurse Practitioner; PCP Nurse Practitioner Family
DX: L50.9 Urticaria, unspecified (principal)
CPT/HCPCS: 87081; 87880; 99213; G0463

== ENCOUNTER 2025-03-03 19:14 | Emergency (ER) | payer BC, SELFPAY ==
--- NOTE | 2025-03-03 19:16 | ED.GENADULT ---
HPI - General Adult General Chief complaint: Urogenital-Female Stated complaint: poss UTI Time Seen by Provider: 03/03/25 19:16 Source: patient Mode of arrival: ambulatory Limitations: no limitations History of Present Illness HPI narrative: 19-year-old female patient presents to [facility] with complaints of urinary symptoms That started this morning. Patient states this morning she had some burning with urination. Denies frequency or urgency today. Patient states she had a UTI about a month ago and does get UTIs pretty frequently and wanted to come in and make sure she was on top of this today. Patient's last menstrual cycle was February 11. Related Data Home Medications ?Medication ?Instructions ?Recorded ?Confirmed ?Last Taken ?Type albuterol sulfate .ROUTE 03/03/25 Unknown History Allergies Allergy/AdvReac Type Severity Reaction Status Date / Time No Known Allergies Allergy Verified 03/03/25 19:22 Review of Systems Review of Systems: CONSTITUTIONAL: Denies fever, chills, or sweats. EYES: Denies visual changes, redness, or discharge. ENT: Denies rhinorrhea, congestion, sore throat, or otalgia. CARDIOVASCULAR: Denies chest pain, palpitations, or edema. RESPIRATORY: Denies cough or dyspnea. GASTROINTESTINAL: Denies abdominal pain, nausea, vomiting, or diarrhea. GENITOURINARY: Positive dysuria , denies gross hematuria. SKIN: Denies rash or itching. MUSCULOSKELETAL: Denies back pain, joint pain, or myalgia. NEUROLOGIC: Denies headache, numbness, or weakness. PSYCHIATRIC: Denies anxiety or depression. [facility] Past Medical History Medical History HSV-1 (herpes simplex virus 1) infection Asthma Allergies Family History Family History Mother Depression Father Depression Hypertension Sibling Depression Asthma Grandparent Hypertension Social History Social History Smoking status: Never smoker Tobacco type: e-cigarettes/vaping Alcohol intake: current Substance use: current Substance use type: marijuana Do You Feel Safe in your Home?: Yes Lack of Transportation: No Lack of Food: Never True Current Housing: I Have Housing Concerned About Future Housing: No Difficulty Paying Gas/Electric Bills: No Difficulty Paying for Meds: No Currently Unemployed: No Education: High School Diploma/GED Difficulty w/ Childcare or Family Care: No Living arrangements: with family Occupation/Education: unemployed Gender identity (if verbalized by the patient): Female Sexual Orientation (if Verbalized by the Patient): Bisexual Comments At the time of my signature I agree with nursing past medical history, surgical, social, and family history. There is no relevant family history pertinent to the presenting complaint. Exam Narrative: GENERAL: Well-appearing, well-nourished, and in no acute distress. HEAD: Normocephalic, atraumatic. EYES: PERRLA and EOMI. ENT: Nares clear, no rhinorrhea or epistaxis. Mucous membranes moist. NECK: Supple. No lymphadenopathy CHEST: Clear to auscultation. No respiratory distress. HEART: Regular rate and rhythm. No murmur heard. Normal peripheral pulses. ABDOMEN: Soft, nontender, nondistended, normal active bowel sounds. no CVA tenderness on percussion EXTREMITIES: Normal range of motion. No edema. SKIN: Warm, dry, no rash. NEURO: No focal deficits. Alert and oriented x3. Course Course Level of Care: Express Care Visit Vital Signs Vital signs: Vital Signs Temperature 36.5 C 03/03/25 19:18 Pulse Rate 100 03/03/25 19:18 Respiratory Rate 03/03/25 19:18 Blood Pressure 130/84 03/03/25 19:18 Pulse Oximetry 100 03/03/25 19:18 Oxygen Delivery Room Air 03/03/25 19:18 Temperature 36.5 C 03/03/25 19:18 Pulse Rate 100 03/03/25 19:18 Respiratory Rate 03/03/25 19:18 Blood Pressure 130/84 03/03/25 19:18 Pulse Oximetry 100 03/03/25 19:18 Oxygen Delivery Room Air 03/03/25 19:18 Vital signs reviewed. Medical Decision Making MDM Narrative Medical decision making narrative: plan care for patient is to provide her a wait and see prescription for an antibiotic, however discussed with patient that her urine dip is not indicative of a urinary tract infection at this time as well if so she only had 1 episode of burning on urination today. Discussed with her I would like to go ahead and send out a culture to see if this is true a true infection however if her symptoms continue to worsen over the next couple of days she can take start taking antibiotic at that time. Discussed with patient to drink lots of water to try and flush out the kidneys and bladder as well as start some probiotics to see if this will go away on its own. Patient verbalized understanding denies any other questions or concerns at this time. Differential Diagnosis Differential Diagnosis: Differential diagnosis: Uncomplicated lower UTI, uncomplicated UTI, pyelonephritis Vital Signs Vital Signs: Vital Signs Temperature 36.5 C 03/03/25 19:18 Pulse Rate 100 03/03/25 19:18 Respiratory Rate 20 03/03/25 19:18 Blood Pressure 130/84 03/03/25 19:18 Pulse Oximetry 100 03/03/25 19:18 Oxygen Delivery Room Air 03/03/25 19:18 Temperature 36.5 C 03/03/25 19:18 Pulse Rate 100 03/03/25 19:18 Respiratory Rate 20 03/03/25 19:18 Blood Pressure 130/84 03/03/25 19:18 Pulse Oximetry 100 03/03/25 19:18 Oxygen Delivery Room Air 03/03/25 19:18 Lab Data Labs: Lab Results 03/03/25 Range/Units 19:32 POC Urine Color Natalie POC Urine Clarity Clear POC Urine pH 8.5 POC Ur Specif [place] 1.020 POC Urine Protein 2+ (Negative) POC Ur Glucose (UA) Negative (Negative) POC Urine Ketones Negative (Negative) POC Urine Blood Trace (Negative) POC Urine Nitrite Negative (Negative) POC Urine Bilirubin Negative (Negative) POC Urine Urobilinogen 0.2 POC U Leukocyte Esteras Negative (Negative) Critical Care Time Critical Care Time Critical Care Time: No Discharge Plan Discharge Clinical Impression: Dysuria Patient Disposition: Home Condition: Stable Instructions: Antibiotic Form, Urinary Tract Infection in Women (ED) Additional Instructions: We will send a urine culture off to the lab; if the culture identifies an organism that the prescribed antibiotic will not treat, you will receive a phone call from an urgent care staff member and an appropriate antibiotic will be prescribed. -Your symptoms should begin to improve within a day of starting antibiotics. But you should finish all the antibiotic pills you get. Otherwise your infection might come back. -Also recommend: drink more fluid. It might help flush out germs, and it does no harm -Tylenol/ibuprofen prn for pain or fever -Follow-up with your primary care provider for urine recheck or seek ER visit if condition worsens with high fever, nausea, vomiting and severe back pain. Patient Language: Togolese Prescriptions: New nitrofurantoin monohyd/m-cryst [Macrobid] 100 mg capsule 100 mg PO Q12H 5 Days Qty: 10 0RF Rx Instructions: must administer with a meal/food No Action albuterol sulfate .ROUTE Follow-up/Referrals: Wolfgang,KAUSHIK Turner [Primary Care Provider] - Time of Disposition: 19:43
--- OUTSIDE RECORDS SUMMARY | 2025-03-03 19:16 | XMS_ITS | Clinical Summary ---
Author Organization [facility] Address [address] [place] [id number] Care Team Providers Care Print Controller Name Role Phone None, Provider MD Primary [...] 6:35 PM CDT Height 157.5 cm (5' 2) 02/26/2023 6:35 PM CDT Body Mass Index [...] patient's age to complete this topic Insurance [facility] Care Teams Print Controller Relationship Specialty Start Date End Date None, Provider, PCP - General UNKNOWN PHYSICIAN SPECIALTY 02/26/23
--- OUTSIDE RECORDS SUMMARY | 2025-03-03 19:16 | XMS_ITS | Referral Summary ---
Author Organization [facility] Address [address] [place] [address] Phone Care Team Providers Care Account Planner Name Role Phone Yue Goss OUTSIDE SALES ACCOUNT REPRESENTATIVE Primary Care Provider [phone] Encounters Date Type Department Care Team Description 01/29/2025 Telephone [facility] Medical Group Family Medicine [address] [place] [address] Yue Goss NP Medical Question/Miscellaneous from Last 3 Months Allergies Active Allergy Reactions Criticality Noted Date Comments Doxycycline Cough Low 05/25/2022 Asthma exacerbation only Medications Wixela Inhub 250-50 mcg/dose diskus inhalerIndication s:Moderate persistent asthma without complication Inhale 1 puff 2 (two) times a day Rinse mouth with water after use. Do not swallow. 1 each 3 5 Active montelukast (SINGULAIR) 10 mg tabletIndications :Moderate persistent asthma without complication Take 1 tablet (10 mg total) by mouth nightly 90 tablet 1 5 05/18/20 26 Active levalbuterol (XOPENEX HFA) 45 mcg/actuation inhalerIndication s:Moderate persistent asthma without complication Inhale 1-2 puffs 4 (four) times a day 15 each 1 5 Active Active Problems Problem Noted Date Diagnosed [...] Comments Blood Pressure 118/72 09/15/2024 11:31 AM TOOLING MECHANIC Pulse 79 09/15/2024 11:31 AM TOOLING MECHANIC Temperature 36.6 C (97.9 F) 09/15/2024 11:31 AM TOOLING MECHANIC Respiratory Rate - - Oxygen Saturation 98% 09/15/2024 11:31 AM TOOLING MECHANIC Inhaled Oxygen Concentration - - Weight 77.1 kg (170 lb) 09/15/2024 11:31 AM TOOLING MECHANIC Height 163.8 cm (5' 4.5) 09/15/2024 11:31 AM CS T Body Mass Index 28.73 09/15/2024 11:31 AM TOOLING MECHANIC Plan of Treatment Not on file Insurance [facility] [employer] Care Teams Account Planner Relationship Specialty Start Date End Date Yue Goss NP [address] [place] [address] PCP - General Internal Medicine 04/19/23
--- OUTSIDE RECORDS SUMMARY | 2025-03-03 19:16 | XMS_ITS | Continuity of Care Document ---
Author Organization [facility] Address [address] [place] [address] Care Team Providers Care Credit Advisor Name Role Phone Vandana RENO, Dean Unavailable [...] Diagnoses Date Provider Providers Copied on Encounter [facility], [address], [place], [place], [id number] , [facility] No Information 3 Angelinachiarashavon Luiszer. [address] [facility] [address], [place], [address], . tel:[phone] OFFICE/OUTPA TIENT VISIT, [facility], [address], [place], [place], [phone] , [facility] ER follow up (chief complaint) Viral gastroenteritisCy stic kidney disease, unspecifiedPerson al history, Urinary (tract) infection 2 No Information OFFICE/OUTPA TIENT VISIT, [facility], [address] [place] [address], [phone] , [facility] Vaginal discomfort (chief complaint)p ain w/ urination (chief complaint) Cyst of right kidneyUrinary Tract InfectionVulvar candidiasis 2 No Information OFFICE/OUTPA TIENT VISIT, [facility], [address] [place] [address], [phone] , [facility] UC UTI problems (chief complaint) Dysuria 2 Sunita Cochran. [address] [place] [address], [place], [address], [place]. tel:[phone] OFFICE/OUTPA TIENT VISIT, [facility], [address], [place], [place], [phone] , [facility] follow up from previous visit (chief complaint)p erineal discomfort (chief complaint) DysuriaConstipati on, unspecifiedDehydr ation 2 No Information OFFICE/OUTPA TIENT VISIT, [facility], [address], [place], [place], [phone] , [facility] Urine Discomfort (chief complaint) DehydrationAllerg ic rhinitis, cause unspecifiedConsti pationDysuriaDysu leonardo 2 No Information OFFICE/OUTPA TIENT VISIT, [facility], [address], [place], [place], [phone] , [facility] UC UTI (chief complaint) UTI (urinary tract infection) 2 No Information OFFICE/OUTPA TIENT VISIT, [facility], [address], [place], [place], [phone] , [facility] lump on right breast (chief complaint)i njury to index finger (chief complaint) Cellulitis 2 No Information OFFICE/OUTPA TIENT VISIT, [facility], [address], [place], [place], [phone] , [facility] vaginal itching x2dys (chief complaint)u rinary frequency x 2dys (chief complaint) Urinary frequency 8 2 Odunusi Dean. [address] [facility] [address], [place], [address], . tel:[phone] OFFICE/OUTPA TIENT VISIT, [facility], [address], [place], [place], [phone] , [facility] right lower abdominal pain (chief complaint) NauseaAbdominal pain, acute, right lower quadrantSinusitis 1 No Information OFFICE/OUTPA TIENT VISIT, [facility], [address], [place], [place], [phone] , [facility] poss. UTI (chief complaint) Urinary system symptoms, other 1 No Information OFFICE/OUTPA TIENT VISIT, [facility], [address], [place], [place], [phone] , [facility] abdominal pain since this morning (chief complaint) UTI (urinary tract infection) 1 Odunusi Dean. [address] [facility] [address], [place], [address], [place]. tel:[phone] OFFICE/OUTPA TIENT VISIT, [facility], [address], [place], [place], [phone] , [facility] lt earache x 3dys on and off (chief complaint)l ow grade fever this am (chief complaint) Otitis media 2 1 Odunusi Dean. [address] [facility] [address], [place], [address], [place]. tel:[phone] OFFICE/OUTPA TIENT VISIT, [facility], [address], [place], [place], [phone] , [facility] ([facility] complaint)f ever (chief complaint) Pneumonia Sep-1 [phone] Vandana Moran. [address], [place], [address], . tel:[phone] Family History Family Member Type Diagnosis Age [...] party ID Authormisha rizvi(s) Blue Shield Comm [facility] [id number] Social History Type Description Quantity Date Captured Comments Sex Female Smoking Status No Information Chief Complaint And Reason For Visit No Information Reason For Referral Reason For Referral No Information Plan Of Treatment Date Type Action Status Goal Vision Screen (8-9 yr). Due on due Goal Well visit (8 years). Due on due Goal Hearing Screen (8-9 yr). Due on due History Of Present Illness Encounter Date Complaint History Of Prese nt Illness No Information Functional Status Date Functional Assessmen t No Information Instructions Date Instruction Additional Infor mation No Information Assessments Type Assessment Date No Information Patient Care Teams Name Effective Dates (start - stop) Status Members No Information
--- OUTSIDE RECORDS SUMMARY | 2025-03-03 19:17 | XMS_ITS | Clinical Summary ---
Author Organization [facility] Address [address] [address] Phone Care Team Providers Care Labor Relations Analyst Name Role Phone Yue Goss NP Primary Care Provider [phone] Allergies Active Allergy Reactions Criticality Noted Date [...] Type Department Care Team Description 01/29/2025 Telephone [facility] Medical Group Family Medicine [address] [place] [address] Yue Goss NP Medical Question/Miscellaneous from Last 3 Months Immunizations Immunization Administration [...] Blood Pressure 118/72 09/15/2024 11:31 AM SENIOR ENTERPRISE ARCHITECT Pulse 79 09/15/2024 11:31 AM SENIOR ENTERPRISE ARCHITECT Temperature 36.6 C (97.9 F) 09/15/2024 11:31 AM SENIOR ENTERPRISE ARCHITECT Respiratory Rate - - Oxygen Saturation 98% 09/15/2024 11:31 AM SENIOR ENTERPRISE ARCHITECT Inhaled Oxygen Concentration - - Weight 77.1 kg (170 lb) 09/15/2024 11:31 AM SENIOR ENTERPRISE ARCHITECT Height 163.8 cm (5' 4.5) 09/15/2024 11:31 AM CS T Body Mass Index 28.73 09/15/2024 11:31 AM SENIOR ENTERPRISE ARCHITECT Plan of Treatment Health Maintenance Due Date [...] patient's age to complete this topic Insurance [employer] Care Teams Labor Relations Analyst Relationship Specialty Start Date End Date Yue Goss NP [address] [facility] [address] [place] [address] PCP - General Internal Medicine 04/19/23
[2025-03-03 19:18] VITALS: BP 130/84; PULSE 100; RESP 20; TEMP 36.5; O2SAT 100
--- OUTSIDE RECORDS SUMMARY | 2025-03-03 19:18 | XMS_ITS | Continuity of Care Document ---
Author Organization [facility] Address [address] [place] [address] Care Team Providers Care Millwright Apprentice Name Role Phone Vandana RENO, Dean Unavailable [...] Encounter [facility], [address], [place], [place], [id number] , [facility] [place] No Information 3 Angelinachiarashavon Luiszer. [address] [facility] [address], [place], [address], . tel:[phone] OFFICE/OUTPA TIENT VISIT, [facility], [address], [place], [place], [id number] , [facility] [place] ER follow up (chief complaint) Viral gastroenteritisCy stic kidney disease, unspecifiedPerson al history, Urinary (tract) infection 2 No Information OFFICE/OUTPA TIENT VISIT, [facility], [address] [place] [address], [id number] , [facility] [place] Vaginal discomfort (chief complaint)p ain w/ urination (chief complaint) Cyst of right kidneyUrinary Tract InfectionVulvar candidiasis 2 No Information OFFICE/OUTPA TIENT VISIT, [facility], [address] [place] [address], [id number] , [facility] [place] UC UTI problems (chief complaint) Dysuria 2 Sunita Cochran. [address] [place] [address], [place], [address], [place]. tel:[phone] OFFICE/OUTPA TIENT VISIT, [facility], [address], [place], [place], [id number] , [facility] [place] follow up from previous visit (chief complaint)p erineal discomfort (chief complaint) DysuriaConstipati on, unspecifiedDehydr ation 2 No Information OFFICE/OUTPA TIENT VISIT, [facility], [address], [place], [place], [id number] , [facility] [place] Urine Discomfort (chief complaint) DehydrationAllerg ic rhinitis, cause unspecifiedConsti pationDysuriaDysu leonardo 2 No Information OFFICE/OUTPA TIENT VISIT, [facility], [address], [place], [place], [id number] , [facility] [place] UC UTI (chief complaint) UTI (urinary tract infection) 2 No Information OFFICE/OUTPA TIENT VISIT, [facility], [address], [place], [place], [id number] , [facility] [place] lump on right breast (chief complaint)i njury to index finger (chief complaint) Cellulitis 2 No Information OFFICE/OUTPA TIENT VISIT, [facility], [address], [place], [place], [id number] , [facility] vaginal itching x2dys (chief complaint)u rinary frequency x 2dys (chief complaint) Urinary frequency 8 2 Odunusi Dean. [address] [facility] [address], [place], [address], . tel:[phone] OFFICE/OUTPA TIENT VISIT, [facility], [address], [place], [place], [id number] , [facility] [place] UC right lower abdominal pain (chief complaint) NauseaAbdominal pain, acute, right lower quadrantSinusitis 1 No Information OFFICE/OUTPA TIENT VISIT, [facility], [address], [place], [place], [id number] , [facility] poss. UTI (chief complaint) Urinary system symptoms, other 1 No Information OFFICE/OUTPA TIENT VISIT, [facility], [address], [place], [place], [id number] , [facility] abdominal pain since this morning (chief complaint) UTI (urinary tract infection) 1 Odunusi Dean. [address] [facility] [address], [place], [address], [place]. tel:[phone] OFFICE/OUTPA TIENT VISIT, [facility], [address], [place], [place], [id number] , [facility] lt earache x 3dys on and off (chief complaint)l ow grade fever this am (chief complaint) Otitis media 2 1 Odunusi Dean. [address] [facility] [address], [place], [address], [place]. tel:[phone] OFFICE/OUTPA TIENT VISIT, [facility], [address], [place], [place], [id number] , [facility] ([facility])f ever (chief complaint) Pneumonia Sep-1 [phone] Vandana Moran. [address] [facility] [address], [place], [address], . tel:[phone] Family History Family Member Type Diagnosis Age [...] Record Payers Payer name Insurance type Covered democrat ID Authormisha rizvi(s) [employer] CI [id number] Social History Type Description Quantity Date Captured [...]
[2025-03-03 19:34] LABS: EDUAAPPEAR Clear; EDUABILI Negative (Negative); EDUABLOOD Trace (Negative); EDUACOLOR1 Amber; EDUAGLUCOSE Negative (Negative); EDUAKETONE Negative (Negative); EDUALEUKO Negative (Negative); EDUANITRATE Negative (Negative); EDUAPH 8.5; EDUAPROTEIN 2+ (Negative); EDUASPGRAVITY 1.020; EDUAUROBILI 0.2
[2025-03-03 19:46] LABS: BEDSIDEPREGUCG Negative (Negative)
== END 2025-03-03 19:47 | disposition home or self-care (01) ==
PROVIDERS: Emergency Provider Nurse Practitioner Family; PCP Nurse Practitioner Family
DX: R30.0 Dysuria (principal)
CPT/HCPCS: 81003; 81025; 87086; 99213; G0463

== ENCOUNTER 2025-06-06 03:03 | Emergency (ER) | payer BC, SELFPAY ==
--- OUTSIDE RECORDS SUMMARY | 2013-03-30 11:47 | XMS_ITS | Continuity of Care Document ---
Author Organization [facility] Address [address] [place] [address] Care Team Providers Care Junior Project Manager Name Role Phone Vandana RENO, Dean Unavailable Unavailable Medications Medication Instructions Dosage Effective Dates (start - stop) Status Comments ProAir HFA 90 mcg/actuation Aerosol Inhaler inhale 2 puff by inhalation route every 4 - 6 hours as needed - No Longer Active Procedures Procedure Date OFFICE/OUTPATIENT VISIT, EST OFFICE/OUTPATIENT VISIT, EST Rocephin OFFICE/OUTPATIENT VISIT, EST THER/PROPH/DIAG INJ, SC/IM OFFICE/OUTPATIENT VISIT, EST OFFICE/OUTPATIENT VISIT, EST ROUTINE VENIPUNCTURE OFFICE/OUTPATIENT VISIT, EST URINALYSIS NONAUTO W/O SCOPE OFFICE/OUTPATIENT VISIT, EST OFFICE/OUTPATIENT VISIT, EST OFFICE/OUTPATIENT VISIT, EST URINALYSIS NONAUTO W/O SCOPE OFFICE/OUTPATIENT VISIT, EST OFFICE/OUTPATIENT VISIT, EST URINALYSIS NONAUTO W/O SCOPE OFFICE/OUTPATIENT VISIT, EST OFFICE/OUTPATIENT VISIT, NEW Advance Directives Directive Yes / No Effective Date File Name No Information Encounters Encounter Description Practice Location Reason(s) For Visit Diagnoses Date Provider Providers Copied on Encounter [facility], [address], [place], [place], [id number] , [facility] [place] No Information 3 Angelinachiarashavon Luiszer. [address], [place], [address], . tel:[phone] OFFICE/OUTPA TIENT VISIT, [facility], [address], [place], [place], [phone] , [facility] [place] ER follow up (chief complaint) Viral gastroenteritisCy stic kidney disease, unspecifiedPerson al history, Urinary (tract) infection 2 No Information OFFICE/OUTPA TIENT VISIT, [facility], [address] [place] [address], [phone] , [facility] [place] Vaginal discomfort (chief complaint)p ain w/ urination (chief complaint) Cyst of right kidneyUrinary Tract InfectionVulvar candidiasis 2 No Information OFFICE/OUTPA TIENT VISIT, [facility], [address] [place] [address], [phone] , [facility] [place] [facility] UTI problems (chief complaint) Dysuria 2 Sunita Cochran. [address] [place] [address], [place], [address], [place]. tel:[phone] OFFICE/OUTPA TIENT VISIT, [facility], [address], [place], [place], [phone] , [facility] [place] follow up from previous visit (chief complaint)p erineal discomfort (chief complaint) DysuriaConstipati on, unspecifiedDehydr ation 2 No Information OFFICE/OUTPA TIENT VISIT, [facility], [address], [place], [place], [phone] , [facility] [place] Urine Discomfort (chief complaint) DehydrationAllerg ic rhinitis, cause unspecifiedConsti pationDysuriaDysu leonardo 2 No Information OFFICE/OUTPA TIENT VISIT, [facility], [address], [place], [place], [phone] , [facility] [place] [facility] UTI (chief complaint) UTI (urinary tract infection) 2 No Information OFFICE/OUTPA TIENT VISIT, [facility], [address], [place], [place], [phone] , [facility] [place] lump on right breast (chief complaint)i njury to index finger (chief complaint) Cellulitis 2 No Information OFFICE/OUTPA TIENT VISIT, [facility], [address], [place], [place], [phone] , [facility] [place] vaginal itching x2dys (chief complaint)u rinary frequency x 2dys (chief complaint) Urinary frequency 8 2 Odunusi Dean. [address], [place], [address], . tel:[phone] OFFICE/OUTPA TIENT VISIT, [facility], [address], [place], [place], [phone] , [facility] [place] [facility] right lower abdominal pain (chief complaint) NauseaAbdominal pain, acute, right lower quadrantSinusitis 1 No Information OFFICE/OUTPA TIENT VISIT, [facility], [address], [place], [place], [phone] , [facility] [place] poss. UTI (chief complaint) Urinary system symptoms, other 1 No Information OFFICE/OUTPA TIENT VISIT, [facility], [address], [place], [place], [phone] , [facility] [place] abdominal pain since this morning (chief complaint) UTI (urinary tract infection) 1 Odunusi Dean. [address], [place], [address], [place]. tel:[phone] OFFICE/OUTPA TIENT VISIT, [facility], [address], [place], [place], [phone] , [facility] [place] lt earache x 3dys on and off (chief complaint)l ow grade fever this am (chief complaint) Otitis media 2 1 Odunusi Dean. [address], [place], [address], [place]. tel:[phone] OFFICE/OUTPA TIENT VISIT, [facility], [address], [place], [place], [phone] , [facility] ([facility] complaint)f ever (chief complaint) Pneumonia Sep-1 [phone] Vandana Moran. [address], [place], [address], . tel:[phone] Family History Family Member Type Diagnosis Age At Onset Brother Problem (finding) asthma Immunizations Vaccine Date Status Comments Polio administered Source: New Imm unization Record DTaP/DTP/DT administered Source: New Imm unization Record Hep A administered Source: New Imm unization Record Varicella administered Source: New Imm unization Record MMR administered Source: New Imm unization Record Flu administered Source: New Imm unization Record DTaP/DTP/DT administered Source: New Imm unization Record Hep A administered Source: New Imm unization Record Polio administered Source: New Imm unization Record HIB - unspecified administered Note: Set procedure code where blank for historical non-specific HIB entry. ; Source: New Immunization Record DTaP/DTP/DT administered Source: New Imm unization Record Varicella administered Source: New Imm unization Record MMR administered Source: New Imm unization Record Hep B administered Source: New Imm unization Record PCV7 administered Source: New Imm unization Record Polio administered Source: New Imm unization Record HIB - unspecified administered Note: Set procedure code where blank for historical non-specific HIB entry. ; Source: New Immunization Record DTaP/DTP/DT administered Source: New Imm unization Record Hep B administered Source: New Imm unization Record Polio administered Source: New Imm unization Record HIB - unspecified administered Note: Set procedure code where blank for historical non-specific HIB entry. ; Source: New Immunization Record Hep B administered Source: New Imm unization Record PCV7 administered Source: New Imm unization Record Payers Payer name Insurance type Covered republican ID Authormisha rizvi(s) [employer] [facility] [id number] Social History Type Description Quantity Date Captured Comments Sex Female Smoking Status No Information Chief Complaint And Reason For Visit No Information Reason For Referral Reason For Referral No Information Plan Of Treatment Date Type Action Status Goal Well visit (8 years). Due on due Goal Hearing Screen (8-9 yr). Due on due Goal Vision Screen (8-9 yr). Due on due History Of Present Illness Encounter Date Complaint History Of Prese nt Illness No Information Functional Status Date Functional Assessmen t No Information Instructions Date Instruction Additional Infor mation No Information Assessments Type Assessment Date No Information Patient Care Teams Name Effective Dates (start - stop) Status Members No Information
--- OUTSIDE RECORDS SUMMARY | 2025-06-05 10:00 | XMS_ITS | Encounter Summary ---
Author Organization [facility] Healthcare Address [address] [place] [address] Care Team Providers Care Skidder Driver Name Role Phone Yue Goss NP Primary Care Provider [phone] Reason for Visit * Reason Comments Urinary Problem Having some urinary frequency and back pain Encounter Details Date Type Department Care Team (Latest Contact Info) Description 06/05/2025 10:00 AM CDT Clinical Support [facility] Medical Group Family Medicine [address] [facility] [address] [place] [address] Urinary frequency (Primary Dx) Social History Tobacco Use Types Packs/Day Years Used Date Smoking Tobacco: Never Smokeless Tobacco: Never PHQ-2 Answer Date Recorded PHQ-2 Total Score (If total score is 3 or more points, staff should administer the PHQ-9) 0 09/15/2024 Comments Unknown Sex and Gender Information Value Date Recorded Sex Assigned at Not on file Legal Sex Female 10:00 AM CDT Gender Identity Not on file Sexual Orientation Not on file documented as of this encounter Plan of Treatment Not on file documented as of this encounter Procedures Procedure Name Priority Date/Time Associated Diagnosis Comments POCT URINALYSIS, AUTO W/O SCOPE Routine 06/05/2025 9:27 AM CDT Urinary frequency documented in this encounter Results * POCT UA, AUTO W/O SCOPE (06/05/2025 9:27 AM CDT) Color, Urine, POC Light Yellow Clarity, ur, POC Clear Clear Glucose, ur, POC Negative Negative Bilirubin, ur, POC Negative Negative Ketones, ur, POC Negative Negative Specific [place], POC 1.020 1.003 - 1.030 Blood, ur, POC Negative Negative pH, ur, POC 7.5 5.0 - 8.0 Protein, ur, POC Negative Negative Urobilinogen, Urine, POC 0.2 <2 MG/DL Leukocytes, ur, POC Negative Negative Nitrite, ur, POC Negative Negative Appearance, fld Clear Clear Blood 06/05/2025 9:27 AM CDT Yue Goss NP POINT OF CARE TEST ORDERABLES Final Result documented in this encounter Visit Diagnoses Diagnosis Urinary frequency- Primary documented in this encounter Care Teams Skidder Driver Relationship Specialty Start Date End Date Yue Goss, KAUSHIK [address] [address] PCP - General Internal Medicine 04/19/23 documented as of this encounter
[2025-06-06 03:10] VITALS: BP 142/91; PULSE 95; RESP 18; TEMP 36.6; O2SAT 100
--- OUTSIDE RECORDS SUMMARY | 2025-06-06 03:16 | XMS_ITS | Clinical Summary ---
Author Organization [facility] Address [address] [address] Phone Care Team Providers Care Shank Turner Name Role Phone Yue Goss NP Primary Care Provider [phone] Allergies Active Allergy Reactions Criticality Noted Date [...] Encounters Date Type Department Care Team Description 06/05/2025 10:00 AM CDT Clinical Support [facility] Medicine [address] [place] [address] [address] [place] [address] Urinary frequency (Primary Dx) 06/04/2025 Telephone [facility] Medicine [address] [place] [address] [address] [place] [address] Yue Goss, ROUTE DELIVERY MANAGER Symptom Based Call from Last 3 Months Immunizations Immunization Administration [...] Comments Blood Pressure 118/72 09/15/2024 11:31 AM ENTRY WRITER Pulse 79 09/15/2024 11:31 AM ENTRY WRITER Temperature 36.6 C (97.9 F) 09/15/2024 11:31 AM ENTRY WRITER Respiratory Rate - - Oxygen Saturation 98% 09/15/2024 11:31 AM ENTRY WRITER Inhaled Oxygen Concentration - - Weight 77.1 kg (170 lb) 09/15/2024 11:31 AM ENTRY WRITER Height 163.8 cm (5' 4.5) 09/15/2024 11:31 AM CS T Body Mass Index 28.73 09/15/2024 11:31 AM ENTRY WRITER Plan of Treatment Health Maintenance Due Date Last Done Comments Cervical Cancer Screening 2004 Chlamydia and Gonorrhea (GC/CT) Screening 2004 Hepatitis C Screening 2004 Pneumococcal vaccine <65 (1 of 1 - PPSV23, PCV20, or PCV21) 2010 02/03/2006, 2004 Meningococcal B Vaccine (1 of 2 - Standard) 2020 Influenza Vaccine (#1) 2025 , 08/09/2019, 10/05/2017, Additional history exists Depression Screening 09/15/2025 09/15/2024, 04/19/20 Regular Well Visit/Exam 18-64 09/15/2025 09/15/2024, 04/19/2023 [...] Routine 06/05/2025 9:27 AM CDT Urinary frequency from Last 3 Months Results * POCT UA, AUTO W/O SCOPE (06/05/2025 9:27 AM CDT) Color, Urine, POC Light Yellow Clarity, ur, POC Clear Clear Glucose, ur, POC Negative Negative Bilirubin, ur, POC Negative Negative Ketones, ur, POC Negative Negative Specific [place], POC 1.020 1.003 - 1.030 Blood, ur, POC Negative Negative pH, ur, POC 7.5 5.0 - 8.0 Protein, ur, POC Negative Negative Urobilinogen, Urine, POC 0.2 <2 MG/DL Leukocytes, ur, POC Negative Negative Nitrite, ur, POC Negative Negative Appearance, fld Clear Clear Blood 06/05/2025 9:27 AM CDT Yue Goss NP POINT OF CARE TEST ORDERABLES Final Result from Last 3 Months Insurance [facility] [employer] Care Teams Shank Turner Relationship Specialty Start Date End Date Yeu Goss NP [address] [place] [address] PCP - General Internal Medicine 04/19/23
--- OUTSIDE RECORDS SUMMARY | 2025-06-06 03:16 | XMS_ITS | Encounter Summary ---
Author Organization [facility] Healthcare Address [address] [place] [address] Care Team Providers Care Lumite Injector Name Role Phone Yue Goss NP Primary Care Provider [phone] Reason for Visit * Reason Onset Date Comments Symptom Based Call 06/04/2025 Encounter Details Date Type Department Care Team (Late st Contact Info) Description 06/04/2025 Telephone [facility] Medical Group Family Medicine [address] [place] [address] Yue Goss, ENVIRONMENTAL COMPLIANCE ENGINEER [address] [place], [place] [id number] Symptom Based Call Social History Tobacco Use Types Packs/Day Years [...] on file documented as of this encounter Miscellaneous Notes * Telephone Encounter - Paula Beckham LPN - 06/04/2025 2:33 PM CDT Called patient and scheduled her for a nurse visit tomorrow morning. * Telephone Encounter - Prasad Erika - 06/04/2025 2:02 PM CDT Symptom Based Call Chief Complaint(s): burning with urination Uncomfortable afterwards: urine is slight cloudy Cramping in lower abdomen Duration: last night What type of symptom(s) is the patient experiencing? Non-Emergent. Is this a new or reoccurring symptom(s)? new What have you tried to help your symptom(s)? Azo cranberry pills Water increase Why was appointment not scheduled? Patient seeking care without an appointment; appointment was offered by [facility]. Additional Comments: patient is requesting an antibiotic be sent to her pharmacy Does message need to be routed? Yes-Action Needed documented in this encounter Plan of Treatment Not on file documented as of this encounter Visit Diagnoses Not on filedocumented in this encounter Care Teams Lumite Injector Relationship Specialty Start Date End Date Yue Goss, KAUSHIK [address] [facility] [address] [place] [address] PCP - General Internal Medicine 04/19/23 documented as of this encounter
--- OUTSIDE RECORDS SUMMARY | 2025-06-06 03:16 | XMS_ITS | Clinical Summary ---
Author Organization [facility] Address [address] [place] [address] Care Team Providers Care Bag Bailer Name Role Phone None, Provider MD Primary [...] Date Last Done Comments Cervical Cancer Screening Pa p Smear (Age 21 to 29) Every 3 Years 2004 Cervical Cancer Screening 2004 Annual Physical 2007 HPV Vaccines (1 - 3-dose series) 2019 Meningococcal B Vaccine (1 o f 2 - Standard) 2020 Hepatitis C 2022 DTaP, Tdap and Td Vaccines ( 1 - Tdap) 2023 Hepatitis B Vaccines (1 of 3 - 19+ 3-dose series) 2023 COVID-19 Vaccine (1 - 2023-2 5 season) 2025 Influenza Adult (#1) 2025 Hepatitis A Vaccines Aged Out No long er eligible based on patient's age to complete this topic Meningococcal Vaccine Aged Out No gladys isael [...] patient's age to complete this topic Insurance [facility] Care Teams Bag Bailer Relationship Specialty Start Date End Date None, Provider, PCP - General UNKNOWN PHYSICIAN SPECIALTY 02/26/23
[2025-06-06] MEDS: SODIUM CHLORIDE 0.9% IV 1,000 ML 999 ML IV CONT (03:22)
[2025-06-06 03:24] LABS: BEDSIDEPREGUCG Negative (Negative)
[2025-06-06 03:31] LABS: Hematocrit 46.3 % (37.0-47.0); Hemoglobin 15.2 g/dL (12.0-15.0); Immature Granulocyte Percent A 0.2 % (0-0.5); Lymphocytes Absolute Auto 2.78 K/mm3 (0.9-3.2); Mean Corpuscular HGB Conc 32.8 g/dl (32-36); Mean Corpuscular Hemoglobin 29.4 pg (26-34); Mean Corpuscular Volume 89.6 fl (80-100); Nucleated Red Blood Cells Absolute Auto 0.000 K/mm3 (0.0-0.012); Nucleated Red Blood Cells Perc 0.0 % (0.0-0.2); Platelet Count Result 349 k/mm3 (150-375); Red Blood Count 5.17 M/mm3 (4.2-5.4); White Blood Count 9.6 K/mm3 (4.5-10.0)
[2025-06-06 03:39] LABS: Add Urine Microscopic? NO; Appearance Urine Clear (Clear); Glucose Urine UA Negative (Negative); Leukocyte Esterase Ur Negative LEU/UL (Negative); Nitrate Urine Negative (Negative); Specific Grav Ur 1.026 (1.001-1.035)
[2025-06-06 03:49] LABS: Alanine Aminotransferase 50 U/L (6-35); Albumin Level 4.7 g/dL (3.5-5.1); Alkaline Phosphatase 107 U/L (38-126); Anion Gap 13 mmol/L (4-12); Aspartate Amino Transferase 46 U/L (14-36); Bilirubin,Total 0.7 mg/dL (0.2-1.3); Blood Urea Nitrogen 18 mg/dL (7-17); Calcium 9.6 mg/dL (8.4-10.2); Carbon Dioxide 21 mmol/L (22-30); Chloride 105 mmol/L (98-107); Estimated CRCL calculation 120 ml/min; Estimated Glomerular Filt Rate > 60; Glucose 89 mg/dL (65-110); Magnesium 2.1 mg/dL (1.6-2.3); Potassium 3.8 mmol/L (3.4-5.0); Sodium 139 mmol/L (137-145); Total Protein 8.8 g/dL (6.3-8.2)
[2025-06-06 04:03] LABS: Lipase 71 U/L (23-300)
--- NOTE | 2025-06-06 04:27 | ED_ITS ---
HPI - Back Pain/Injury General Chief Complaint: Back Pain/Injury Stated Complaint: Bilateral flank pain/nausea Time Seen by Provider: 06/06/25 03:12 History of Present Illness HPI Narrative: Patient is a 20-year-old female who presents emergency department this evening complaining of dysuria. States that symptoms started today and she went to an urgent care earlier today and had a UA which was negative. Patient states that shortly prior to arrival to the ED she went to the bathroom and she noticed that it did burn slightly when she Peed she was having some lower back pain as well so she decided to come to the ED for further evaluation. Otherwise denies any abdominal pain, any nausea vomiting, any recent illness, any history of kidney stones. Related Data Home Medications ?Medication ?Instructions ?Recorded ?Confirmed ?Last Taken ?Type albuterol sulfate .ROUTE 03/03/25 Unknown His tory Allergies Allergy/AdvReac Type Severity Reaction Status Date / Time No Known Allergies Allergy Verified 06/06/25 03:05 Review of Systems 2 Review of Systems: All systems are reviewed and are negative unless stated otherwise in the HPI. COUNTS INCLUDE 234 BEDS AT THE [facility] Past Medical History Medical History HSV-1 (herpes simplex virus 1) infection Asthma Allergies Family History Family History Mother Depression Father Depression Hypertension Sibling Depression Asthma Grandparent Hypertension Social History Social History Smoking status: Never smoker Tobacco type: e-cigarettes/vaping Alcohol intake: current Substance use: current Substance use type: marijuana Do You Feel Safe in your Home?: Yes Lack of Transportation: No Lack of Food: Never True Current Housing: I Have Housing Concerned About Future Housing: No Difficulty Paying Gas/Electric Bills: No Difficulty Paying for Meds: No Currently Unemployed: No Education: High School Diploma/GED Difficulty w/ Childcare or Family Care: No Living arrangements: with family Occupation/Education: unemployed Gender identity (if verbalized by the patient): Female Sexual Orientation (if Verbalized by the Patient): Bisexual Exam 2 Narrative: General: Alert, awake, afebrile, in no acute distress. HEENT: PERRL, no rhinorrhea, no post nasal drip, oropharynx clear. Neck: Trachea midline, no JVD, no lymphadenopathy. Cardiovascular: Regular rate and rhythm, no murmurs, rubs or gallops, no peripheral edema. Respiratory: Clear to auscultation bilaterally, no tachypnea, no wheezing, no rhonchi, no rubs, no respiratory distress. Abdomen: Soft, nontender, nondistended, no rebound, no guarding, no peritoneal signs. Musculoskeletal: No joint swelling or deformity, normal muscle tone. Skin: No rashes or petechia, no signs of infection. Psychiatric: Alert and oriented, normal behavior and judgment for situation. Neurological: Alert and oriented to person, place, and time. Follows all commands. No focal deficits, speech is clear and fluent. Course Vital Signs Vital signs: Vital Signs Temperature 98 F 06/06/25 03:10 Pulse Rate 95 06/06/25 03:10 Respiratory Rate 18 06/06/25 03:10 Blood Pressure 142/91 H 06/06/25 03:10 Pulse Oximetry 100 06/06/25 03:10 Oxygen Delivery Room Air 06/06/25 03:10 Temperature 98 F 06/06/25 03:10 Pulse Rate 95 06/06/25 03:10 Respiratory Rate 18 06/06/25 03:10 Blood Pressure 142/91 H 06/06/25 03:10 Pulse Oximetry 100 06/06/25 03:10 Oxygen Delivery Room Air 06/06/25 03:10 MDM - Back Pain/Injury MDM Narrative Medical decision making narrative: The patient was evaluated by myself in the emergency department. History is obtained from patient who is an independent historian and physical exam was performed. External medical records were reviewed at this time. IV was established and pertinent tests were ordered. Patient was administered 1 L IV fluid bolus with normal saline. Laboratory results obtained revealing mild transaminitis with an AST of 46 and ALT of 50 otherwise unremarkable. Urinalysis unremarkable. Shared medical decision-making with the patient regarding obtaining a CT abdomen pelvis was discussed at this time. Patient is in agreement that no CT is indicated, she is currently denying any back pain or abdominal pain and given her normal urinalysis, my suspicion for pyelonephritis and nephrolithiasis is very low. Patient also denies any recent falls or trauma. She denies any concern for STDs and denies any vaginal discharge. Differential diagnosis considerations include urinary tract infection, pyelonephritis, nephrolithiasis, musculoskeletal strain. Comorbidities impacting this visit include none. I have evaluated and discussed social determinants of health with the patient that could potentially impact subsequent diagnosis and treatment plans. On repeat assessment of the patient, reevaluation revealed that the patient is doing well and is in no acute distress. Patient symptoms have improved since she arrived to our emergency department. Repeat vital signs were all reviewed and noted to be stable. Differential diagnosis and treatment plan were discussed with the patient at bedside. Patient agrees with discussion and after shared medical decision making agrees with discharge. All questions were answered to the patient's satisfaction. Patient will follow up with her PCP in 3-5 days. Patient was provided with strict return precautions and instructed to return to the emergency department if any new or worsening symptoms develop. The patient was discharged in stable condition. Lab Data 06/06/25 03:20 06/06/25 03:20 Labs: Lab Results 06/06/25 06/06/25 Range/Units 03:20 03:22 WBC 9.6 (4.5-10.0) K/mm3 RBC 5.17 (4.2-5.4) M/mm3 Hgb 15.2 H (12.0-15.0) g/dL Hct 46.3 (37.0-47.0) % MCV 89.6 (80-100) fl MCH 29.4 (26-34) pg MCHC 32.8 (32-36) g/dl RDW 12.6 (11.5-14.5) % Plt Count 349 (150-375) k/mm3 MPV 10.2 (7.4-10.4) fl Immature Gran % (Auto) 0.2 (0-0.5) % Neut % (Auto) 62.0 (45.5-73.1) % Lymph % (Auto) 29.1 (18.3-44.2) % [place]ck[place] % (Auto) 6.7 (2.6-8.5) % Eos % (Auto) 1.6 (0-4.4) % Baso % (Auto) 0.4 (0.2-1.2) % Lymph # (Auto) 2.78 (0.9-3.2) K/mm3 [place] # (Auto) 0.6 (0.1-0.6) K/mm3 Eos # (Auto) 0.2 (0-0.3) K/mm3 Baso # (Auto) 0.0 (0.0-0.1) K/mm3 Abs Immat Gran (auto) 0.02 (0.00-0.031) K/mm3 Absolute Neuts (auto) 5.9 (1.3-6.7) K/mm3 Absolute Nucleated RBC 0.000 (0.0-0.012) K/mm3 Nucleated RBC % 0.0 (0.0-0.2) % Sodium 139 (137-145) mmol/L Potassium 3.8 (3.4-5.0) mmol/L Chloride 105 (98-107) mmol/L Carbon Dioxide 21 L (22-30) mmol/L Anion Gap 13 H (4-12) mmol/L BUN 18 H (7-17) mg/dL Creatinine 0.67 L (0.7-1.0) mg/dL Estim Creat Clear Calc 120 ml/min Estimated GFR > 60 (59 - ) Glucose 89 (65-110) mg/dL Calcium 9.6 (8.4-10.2) mg/dL Magnesium 2.1 (1.6-2.3) mg/dL Total Bilirubin 0.7 (0.2-1.3) mg/dL AST 46 H (14-36) U/L ALT 50 H (6-35) U/L Alkaline Phosphatase 107 (38-126) U/L Total Protein 8.8 H (6.3-8.2) g/dL Albumin 4.7 (3.5-5.1) g/dL Lipase 71 (23-300) U/L Urine Color Yellow (Yellow) Urine Appearance Clear (Clear) Urine pH 6.5 (5.0-9.0) Ur Specific [place] 1.026 (1.001-1.035) Urine Protein Negative (Negative) mg/dL Urine Glucose (UA) Negative (Negative) mg/dL Urine Ketones Negative (Negative) mg/dL Ur Blood (Man) Negative (Negative) Urine Nitrate Negative (Negative) Urine Bilirubin Negative (Negative) Urine Urobilinogen 0.2 (<2.0) mg/dL Leukocyte Esterase Rfl Negative (Negative) BAHMAN/UL POC Urine HCG, Qual Negative (Negative) Discharge Plan Discharge Clinical Impression: Dysuria Patient Disposition: Home Condition: Improved Instructions: Antibiotic Form, Dysuria (ED) Additional Instructions: Please follow-up with the family doctor within the next 3-5 days. Return to emergency department new or worsening symptoms develop. Patient Language: Yemeni Prescriptions: No Action albuterol sulfate .ROUTE nitrofurantoin monohyd/m-cryst [Macrobid] 100 mg capsule 100 mg PO Q12H 5 Days Qty: 10 0RF Rx Instructions: must administer with a meal/food Follow-up/Referrals: Wolfgang,KAUSHIK Turner [Primary Care Provider, Unknown] - 3 Days Time of Disposition: 04:28
[2025-06-06 04:51] VITALS: BP 128/88; PULSE 83; RESP 18; O2SAT 99
[2025-06-06 06:19] LABS: Trichomonas Vag PCR NOT DETECTED (NOT DETECTE)
== END 2025-06-06 04:57 | disposition home or self-care (01) ==
PROVIDERS: Emergency Provider Emergency Medicine; PCP Nurse Practitioner Family
DX: R30.0 Dysuria (principal); J45.909 Unspecified asthma, uncomplicated
CPT/HCPCS: 36415; 80053; 81003; 81025; 83690; 83735; 85025; 87491; 87591; 87661; 96360; 99284; J7030